=== PATIENT | female | born 1940 | race Caucasian/White ===

== ENCOUNTER → 2018-08-03 13:00 | Outpatient (CLI) | payer MEDICARE, SELFPAY ==
--- NOTE | 2018-08-03 | DI.CT.S_ITS ---
PROCEDURE: CT CHEST WO CON INDICATIONS: RECHECK LUNG NODULE TECHNIQUE: Noncontrast 2.0-2.5 mm thick sections acquired from the pulmonary apices to the posterior costophrenic angles. 7 mm thick coronal and sagittal MIP reformats were then acquired. A low radiation dose technique was utilized. COMPARISON: [facility], CT, THORAX WITHOUT CONTRAST, 01/29/2018, 11:12. [facility], CT, THORAX WITHOUT CONTRAST, 02/03/2017, 12:34. FINDINGS: Image quality: Diagnostic, given the low radiation dose technique. Lungs and pleura: Redemonstration of multiple 6 mm or last right-sided pulmonary nodules are grossly unchanged since 02/03/17. No acute consolidation pleural effusion or pneumothorax. There is bibasilar subsegmental scarring atelectasis as well as central bronchial wall thickening. Mediastinum: Heart size is normal. No pericardial effusion. No mediastinal adenopathy by size criteria. Thoracic aorta and central pulmonary arteries are normal in size. Esophagus is normal in caliber. No hiatal hernia. Bones and chest wall: No suspicious bony lesions. No vertebral body compression fractures. No axillary or supraclavicular adenopathy by size criteria. Thyroid gland contains nonspecific calcification in the left lobe which is unchanged. Abdomen: Visualized upper abdomen solid organs and bowel loops appear normal in the absence of contrast. IMPRESSION: Grossly unchanged appearance of multiple subcentimeter pulmonary nodules as detailed above as 02/03/17. A final followup CT is recommended for the right sided pulmonary nodules measuring up to 6 mm, in January 2019 for definitive 24 month surveillance as below. Fleischner Society criteria for SOLID lung nodule followup. Nodule size (mm)Low-risk patientHigh-risk patient<6 (single or multiple)No routine followup.Optional CT at 12 months. 6-8 (single or multiple)CT at 6-12 months, then optional CT at 18-24 mo.CT at 6-12 months, then CT at 18-24 months. >8 (single)CT at 3 months, PET-CT, or biopsy. Same as for low-risk pts. >8 (multiple)CT at 3-6 months, then optional CT at 18-24 mo.CT at 3-6 months, then CT at 18-24 months. Fleischner Society criteria for SUB-SOLID lung nodule followup. Solitary pure ground-glass nodules<6 mm (ground glass or part solid)No followup needed. 6 mm or larger (ground glass)CT at 6-12 months to confirm persistence, then CT every 2 years until 5 years.6 mm or larger (part solid)CT at 3-6 months to confirm persistence, then annual CT until 5 years if unchanged and solid component remains <6 mm. Multiple sub-solid nodules<6 mmCT at 3-6 months, then CT consider at 2 & 4 years for high risk patients. [address] at 3-6 months. Subsequent management based on most suspicious lesions. Recommendations do not apply to lung cancer screening, patients with immunosuppression, or patients with known primary cancer. Dictated by: Paresh Bronson M.D. on 08/03/2018 at 13:44 Approved by: Paresh Bronson M.D. on 08/03/2018 at 13:51
== END ==
PROVIDERS: Family Provider Family Medicine; PCP Family Medicine; Visit Provider Family Medicine
DX: R91.8 Other nonspecific abnormal finding of lung field (principal)
CPT/HCPCS: 71250

== ENCOUNTER → 2019-01-16 12:28 | Outpatient (CLI) | payer MEDICARE, SELFPAY ==
--- NOTE | 2019-01-16 12:33 | DI.RAD.S_ITS ---
PROCEDURE: XR SHOULDER RT MIN 2V INDICATIONS: BILATERAL SHOULDNER PAIN TECHNIQUE: 3 views of the shoulder were acquired. COMPARISON: None. FINDINGS: Bones: Moderate to severe right glenohumeral joint osteoarthritis and moderate acromioclavicular joint osteoarthritis is seen. No fractures or dislocations. No suspicious bony lesions. Visualized ribs appear intact. Soft tissues: No suspicious soft tissue calcifications. IMPRESSION: Moderate to severe right glenohumeral joint arthritis and moderate right acromioclavicular joint osteoarthritis. Dictated by: Hugo Veras M.D. on 01/16/2019 at 13:23 Approved by: Hugo Veras M.D. on 01/16/2019 at 13:23
--- NOTE | 2019-01-16 12:33 | DI.RAD.S_ITS ---
PROCEDURE: XR SHOULDER LT MIN 2V INDICATIONS: BILATERAL SHOULDNER PAIN TECHNIQUE: 3 views of the shoulder were acquired. COMPARISON: None. FINDINGS: Bones: No fractures or dislocations. Moderate to severe glenohumeral joint osteoarthritis and mild acromioclavicular joint osteoarthritis is seen. No suspicious bony lesions. Visualized ribs appear intact. Soft tissues: No suspicious soft tissue calcifications. IMPRESSION: Moderate to severe left glenohumeral joint osteoarthritis and mild left acromioclavicular joint osteoarthritis. Dictated by: Hugo Veras M.D. on 01/16/2019 at 13:22 Approved by: Hugo Veras M.D. on 01/16/2019 at 13:23
== END ==
PROVIDERS: Family Provider Family Medicine; PCP Family Medicine; Visit Provider Family Medicine
DX: M25.511 Pain in right shoulder (principal); M19.012 Primary osteoarthritis, left shoulder; M19.011 Primary osteoarthritis, right shoulder
CPT/HCPCS: 73030

== ENCOUNTER → 2019-02-07 13:03 | Outpatient (CLI) | payer MEDICARE, SELFPAY ==
--- NOTE | 2019-02-07 13:57 | DI.CT.S_ITS ---
PROCEDURE: CT CHEST WO CON INDICATIONS: LUNG NODULE TECHNIQUE: Noncontrast 2.0-2.5 mm thick sections acquired from the pulmonary apices to the posterior costophrenic angles. 7 mm thick coronal and sagittal MIP reformats were then acquired. A low radiation dose technique was utilized. COMPARISON: [facility], CT, CT CHEST WO CON, 08/03/2018, 12:57. FINDINGS: Image quality: Diagnostic, given the low radiation dose technique. Lungs and pleura: The 6 mm or less right sided pulmonary nodules originally identified in January of 2017 have not changed over time, and no new nodule has developed. These likely are postinflammatory in origin. No mediastinal or hilar adenopathy is found. No acute bone or soft tissue lesions seen. These have been stable over 2 years. Mediastinum: Heart size is normal. No pericardial effusion. No mediastinal adenopathy by size criteria. Thoracic aorta and central pulmonary arteries are normal in size. Esophagus is normal in caliber. No hiatal hernia. Bones and chest wall: No suspicious bony lesions. No vertebral body compression fractures. No axillary or supraclavicular adenopathy by size criteria. Thyroid gland is not well-visualized by this noncontrast technique. Abdomen: Visualized upper abdomen solid organs and bowel loops appear normal in the absence of contrast. IMPRESSION: Benign nodules are again seen at the right lung requiring no additional followup. Presumed old inflammatory events are the cause of that appearance. Dictated by: Mahendra Queen M.D. on 02/07/2019 at 18:17 Approved by: Mahendra Queen M.D. on 02/07/2019 at 18:21
== END ==
PROVIDERS: Family Provider Family Medicine; PCP Family Medicine; Visit Provider Family Medicine
DX: R91.8 Other nonspecific abnormal finding of lung field (principal)
CPT/HCPCS: 71250

== ENCOUNTER → 2019-03-01 13:06 | Outpatient (CLI) | payer MEDICARE, SELFPAY ==
--- NOTE | 2019-03-01 | DI.MG.S_ITS ---
BILATERAL DIGITAL SCREENING MAMMOGRAM 3D/2D WITH CAD: 03/01/2019 CLINICAL: Routine screening. Comparison is made to exams dated: 02/17/2015 mammogram, 10/25/2012 mammogram, and 07/25/2011 mammogram - [facility]. The tissue of both breasts is predominantly fatty. Current study was also evaluated with a Computer Aided Detection (CAD) system. There are a grouped calcifications in the left breast at 12 o'clock middle depth. No other significant masses, calcifications, or other findings are seen in either breast. IMPRESSION: INCOMPLETE: NEEDS ADDITIONAL IMAGING EVALUATION The grouped calcifications in the left breast are indeterminate. Spot magnification views as well as a diagnostic mammogram are recommended. This exam was interpreted at Station ID: [id number]. NOTE: For mammograms, a report in lay terms will be sent to the patient. Approximately 15% of breast malignancies will not be visualized mammographically. In the management of a palpable breast mass, a negative mammogram must not discourage biopsy of a clinically suspicious lesion. Electronically Signed By: Judie selby/mark:03/01/2019 13:38:05 letter sent: Additional Imaging Needed ACR BI-RADS Category 0: Incomplete 3340F
== END ==
PROVIDERS: PCP Family Medicine; Visit Provider Family Medicine
DX: Z12.31 Encounter for screening mammogram for malignant neoplasm of breast (principal)
CPT/HCPCS: 77063; 77067

== ENCOUNTER → 2019-03-19 14:08 | Outpatient (CLI) | payer MEDICARE, SELFPAY ==
--- NOTE | 2019-03-19 | DI.MG.S_ITS ---
UNILATERAL LEFT DIGITAL DIAGNOSTIC MAMMOGRAM 3D/2D WITH ADDITIONAL VIEWS: 03/19/2019 CLINICAL: Additional evaluation requested from prior study. Comparison is made to exams dated: 03/01/2019 mammogram, 02/17/2015 mammogram, and 10/25/2012 mammogram - [facility]. The tissue of left breast is predominantly fatty. There are new grouped fine pleomorphic punctate calcifications in the left breast central to the nipple middle depth. No other significant masses or calcifications are seen in the breast. IMPRESSION: SUSPICIOUS OF MALIGNANCY The new grouped fine pleomorphic punctate calcifications in the left breast are at an intermediate suspicion for malignancy. A stereotactic biopsy is recommended. The findings were discussed with the patient at the conclusion of the study by Dr. Le. This exam was interpreted at Station ID: [id number]. NOTE: For mammograms, a report in lay terms will be sent to the patient. Approximately 15% of breast malignancies will not be visualized mammographically. In the management of a palpable breast mass, a negative mammogram must not discourage biopsy of a clinically suspicious lesion. Electronically Signed By: Nakul blackwell/:03/19/2019 14:52:15 letter sent: Biopsy Required ACR BI-RADS Category 4b: Suspicious abnormality - intermediate suspicion of malignancy 3344F
== END ==
PROVIDERS: PCP Family Medicine; Visit Provider Internal Medicine
DX: R92.8 Other abnormal and inconclusive findings on diagnostic imaging of breast (principal); R92.1 Mammographic calcification found on diagnostic imaging of breast
CPT/HCPCS: 77065; G0279

== ENCOUNTER → 2019-04-25 10:11 | Outpatient (CLI) | payer MEDICARE, SELFPAY ==
--- NOTE | 2019-04-25 10:21 | DI.CT.S_ITS ---
PROCEDURE: CT UE LT WO CON INDICATIONS: Primary osteoarthritis, left shoulder TECHNIQUE: Noncontrast 1-1.5 mm thick sections acquired from the acromioclavicular joint to the inferior scapula, with coronal and sagittal reformatting. COMPARISON: [facility], CR, XR SHOULDER LT MIN 2V, 01/16/2019, 12:33. FINDINGS: Image quality: Excellent. Bones: No fracture or dislocation. There are severe osteoarthritic changes in left shoulder with severe joint space narrowing, periarticular osteophytes and subchondral sclerosis and cyst formation. Superior migration of humeral head suggests chronic rotator cuff tear. There is mild acromioclavicular joint degeneration. Soft tissues: No soft tissue mass or large joint effusion. IMPRESSION: 1. Severe osteoarthritis of the left glenohumeral joint. 2. Mild osteoarthritis of acromioclavicular joint. 3. Suspect chronic rotator cuff tear. Dictated by: Real Rao M.D. on 04/25/2019 at 15:51 Approved by: Real Rao M.D. on 04/26/2019 at 7:24
== END ==
PROVIDERS: PCP Family Medicine; Visit Provider Orthopaedic Surgery
DX: M19.012 Primary osteoarthritis, left shoulder (principal)
CPT/HCPCS: 73700

== ENCOUNTER → 2019-05-22 16:33 | Outpatient (CLI) | payer MEDICARE, SELFPAY ==
[2019-05-22 17:58] LABS: Add Manual Diff / Slide Review NO; Basophils Absolute Auto 100 /uL (0-100); Basophils Percent Auto 0.8 % (0-2); Eosinophils Absolute Auto 300 /uL (0-450); Eosinophils Percent Auto 3.6 % (2-4); Lymphocytes Absolute Auto 2800 /uL (1100-4500); Lymphocytes Percent Auto 32.1 % (25-40); Mean Corpuscular HGB Conc 33.3 % (30-36); Mean Corpuscular Hemoglobin 32.5 PG (26-34); Mean Corpuscular Volume 97.6 fL (80-100); Monocytes Absolute Auto 700 /uL (0-900); Monocytes Percent Auto 8.1 % (3-14); Neutrophils Absolute Auto 4900 /uL (1500-7000); Neutrophils Percent Auto 55.4 % (50-75); Platelet Count 249 X10^3/uL (150-400); Red Blood Cell Count 3.99 X10^6/uL (4.0-5.2); Red Cell Distribution Width 13.4 % (11.6-14.8); White Blood Cell Count 8.8 X10^3/uL (4.5-11.0)
[2019-05-22 18:21] LABS: Alanine Aminotransferase 42 IU/L (9-52); Albumin 4.3 g/dL (3.5-5.0); Albumin Globulin Ratio 1.7 (1.0-2.8); Alkaline Phosphatase 57 U/L (38-126); Aspartate Aminotransferase 40 IU/L (14-36); BUN Creatinine Ratio 32.5 (6-22); Bilirubin Total 0.3 mg/dL (0.2-1.3); Blood Urea Nitrogen 26 mg/dL (7-17); Carbon Dioxide 28 mmol/L (22-32); Chloride 103 mmol/L (98-107); Estimated Glomerular Filt Rate > 60.0 mL/min (>60); Globulin 2.5 g/dL (1.7-4.1); Glucose 95 mg/dL (80-110); HEMOLYSIS < 15 (0-50); Potassium 4.4 mmol/L (3.4-5.1); Sodium 140 mmol/L (137-145); Total Protein 6.8 g/dL (6.3-8.2)
[2019-05-22 18:52] LABS: Thyroid Stimulating Hormone 0.32 uIU/mL (0.47-4.68)
== END ==
PROVIDERS: PCP Family Medicine; Visit Provider Family Medicine
DX: I10 Essential (primary) hypertension (principal); I49.1 Atrial premature depolarization; R42 Dizziness and giddiness
CPT/HCPCS: 36415; 80053; 84443; 85025

== ENCOUNTER → 2019-07-10 10:51 | Outpatient (ROUT) | payer MEDICARE, SELFPAY ==
[2019-07-10 11:45] LABS: INR 1.1 (0.9-1.3); Prothrombin Time 12.3 SECONDS (10.1-12.7)
== END ==
PROVIDERS: PCP Family Medicine; Visit Provider Family Medicine
DX: I48.91 Unspecified atrial fibrillation (principal)
CPT/HCPCS: 85610

== ENCOUNTER → 2019-07-22 06:43 | Outpatient (CLI) | payer MEDICARE, SELFPAY ==
--- NOTE | 2019-07-22 | DI.NM.S_ITS ---
PROCEDURE: NM HOMERO PERF SPECT REST & STR Rest and exercise myocardial perfusion SPECT with gated imaging and ejection fraction RADIOPHARMACEUTICAL: 25.1 mCi Tc-99m sestamibi IV at rest and 19.1 mCi Tc-99m sestamibi IV at peak exercise. A two day-protocol was performed. INDICATIONS: Persistent atrial fibrillation TECHNIQUE: Radiopharmaceutical was injected at peak stress test, and also at rest. SPECT images were obtained. SPECT myocardial perfusion images were displayed in short axis, horizontal long axis, and vertical long axis views. Gated images were reviewed using [employer] software. COMPARISON: CARDIAC STRESS: A standard Wallace treadmill exercise tolerance test was performed by the patient under the supervision of an attending staff. The patient exercised for 5 minutes and 11 seconds; functional aerobic impairment (CODY) is -10%. Hemodynamic data: There is normal blood pressure and heart rate response to exercise stress. Patient achieved 94% of maximum predicted heart rate at peak exercise. Symptoms: Patient denied chest pain during exercise. EKG: No diagnostic EKG changes of ischemia; occasional PACs noted. FINDINGS: Raw data: There is good myocardial labeling by radiotracer. No significant motion artifacts. Jrrr-cj-gzgbe ratio is 0.38 (normal is less than 0.38 for sestamibi tracer, and less than 0.50 for thallium tracer). Left ventricle function: Gated images demonstrate normal left ventricle wall thickening. No segmental wall motion abnormality. No transient ischemic dilation; TID is 0.94 (normal less than 1.3). The left ventricle resting end-diastolic volume is 74 mL. Left ventricle stress ejection fraction is 84%; normal values are above 45%. Myocardial perfusion: There is normal distribution of activity in the left and right ventricular myocardium. No fixed or reversible perfusion defects. IMPRESSION: Low risk, normal treadmill nuclear stress test. 1) No perfusion evidence of ischemia or infarction. 2) Normal left ventricular size, wall motion, and systolic function (EF post stress 84%). 3) No ECG evidence of ischemia. Occasional PACs with exercise. 4) No angina during the study. 5) Above average exercise tolerance (7.0 METs, CODY -10%). Target heart rate achieved. Appropriate BP response to exercise. 6) No prior nuclear stress test available for comparison. Dictated by: Martita Cornejo MD on 07/25/2019 at 13:39 Approved by: Martita Cornejo MD on 07/25/2019 at 13:43
== END ==
PROVIDERS: PCP Family Medicine; Visit Provider Internal Medicine Cardiovascular Disease
DX: I48.1 Persistent atrial fibrillation (principal); I34.0 Nonrheumatic mitral (valve) insufficiency
CPT/HCPCS: 78452; 93016; 93017; 93018; A9502; J2785

== ENCOUNTER → 2019-07-25 06:54 | Outpatient (CLI) | payer MEDICARE, SELFPAY ==
--- NOTE | 2019-07-25 | DI.ECHO.S_ITS ---
[place] [facility]---------+ [facility] +---------+ : : [address] : : : : [id number] : : : : Phone: [phone]+ Echocardiogram Report + + :Name: AP ZAVALA Study Date: 07/25/2019 Height: 64 in : :[facility] Location: IS Weight: 177 lb : : Gender: Female BSA: 1.9 m2 : :: 1940 Age: 79 yrs BP: 123/79 mmHg: :Reason For Study: Mitral Valve- Regurgitation : :Ordering Physician: : :Danelle Gonzalez Performed By: Melanie Page : + + Interpretation Summary 1) Normal left ventricular thickness, size, wall motion, and systolic function (EF 60-65%). 2) Normal right ventricular size and function. 3) Severely enlarged left atrium. 4) There is mild mitral regurgitation. 5) Compared to the Echo done 10/01/2015, mitral regurgitation has increased from trace to mild on this study. Procedure: A two-dimensional transthoracic echocardiogram with color flow and Doppler was performed. The study quality was technically adequate. Comparison is made with the echocardiogram of 10/01/2015. The heart rate ranged between 49-64 bpm during the study. The patient was in normal sinus rhythm during the exam. Left Ventricle: The left ventricle is normal in size, wall thickness, and systolic function without any focal wall motion abnormalities. The ejection fraction is estimated to be 60-65%. Diastolic parameters suggest a relaxation abnormality of the left ventricle, consistent with probable normal filling pressures. Right Ventricle: The right ventricle is normal in size and function. Atria: The left atrium is severely dilated. Right atrial size is normal. There is no Doppler evidence for an interatrial shunt. Mitral Valve: The mitral valve leaflets appear mildly thickened, but open well. There is mild mitral annular calcification. There is mild mitral regurgitation. Aortic Valve: The aortic valve is trileaflet. The aortic valve is slightly calcified. There is no aortic valve stenosis. No aortic regurgitation is present. Tricuspid Valve: The tricuspid valve is normal in structure and function. There is trace tricuspid regurgitation. The right ventricular systolic pressure is estimated to be at least 34 mmHg based on an estimated right atrial pressure of 15 mm Hg. Pulmonic Valve: The pulmonic valve is not well seen, but is grossly normal. There is trace pulmonic regurgitation. Great Vessels: The aortic root is normal size. The ascending aorta is normal in size. The pulmonary artery is not well visualized, but is probably normal size. The IVC is dilated (diameter is greater than 2.1 cm) and it collapses less than 50% with a sniff. This suggests a high right atrial pressure of 15 mm Hg. Pericardium/ Pleura There is no pericardial effusion. There is no pleural effusion. MMode/2D Measurements & Calculations LVIDd: 5.0 cm LVOT diam: 2.0 cm LVIDs: 2.9 cm Ao root diam: 2.7 cm FS: 41.4 % asc Aorta Diam: 3.2 cm EPSS: 0.30 cm IVSd: 0.64 cm LVPWd: 0.62 cm LV spencer. diameter/BSA (cm/m^2): 2.7 LV sys. diameter/BSA (cm/m^2): 1.6 LA A2 area: 30.1 cm2 RA long axis: 5.1 cm LA A4 area: 23.7 cm2 RA area: 15.6 cm2 LA length (vol): 5.9 cm RA vol: 40.5 ml LA vol: 102.6 ml RA : 21.8 ml/m2 LA vol index: 55.3 ml/m2 IVC diam: 2.2 cm RVD1 (basal): 3.4 cm RVD2 (mid): 3.1 cm TAPSE: 2.2 cm Doppler Measurements & Calculations Ao V2 max: 138.8 cm/sec LVOT Max Kapil: 101.7 cm/sec Ao V2 mean: 94.3 cm/sec LV V1 max P.1 mmHg Ao max P.7 mmHg LV V1 VTI: 25.5 cm Ao mean P.9 mmHg SARIAK(I,D): 2.5 cm2 Ao V2 VTI: 31.4 cm SARIKA(V,D): 2.3 cm2 sev ratio: 0.81 SARIKA indexed to BSA (cm^2/m^2): 1.4 MV E max kapil: 108.3 cm/sec TR max kapil: 220.1 cm/sec MV A max kapil: 119.6 cm/sec TR max P.4 mmHg MV E/A: 0.91 PA V2 max: 80.4 cm/sec Med Peak E' Kapil: 6.1 cm/sec PA V2 mean: 59.7 cm/sec E/E' med: 17.8 PA mean P.5 mmHg Lat Peak E' Kapil: 8.2 cm/sec PA Accel Time: 0.12 sec E/E' lat: 13.3 E/e' average: 15.5 MV dec time: 0.22 sec MV P1/2t: 65.3 msec MV P1/2t max kapil: 108.7 cm/sec SV(LVOT): 78.8 ml MVA(P1/2t): 3.4 cm2 Reading Physician:12:21 PM
--- NOTE | 2019-07-25 12:17 | PM.TREADMILL ---
Cardiac Stress Test Report Referral & Results Date Patient Seen: 07/25/19 Requesting provider: Martita Cornejo Indication: Atrial fibrillation Rest ECG: Unremarkable, sinus rhythm Procedure Note: Today following both written and verbal informed consent the patient was exercised according to a standard Wallace protocol patient went for a total of 5 minutes 11 seconds achieving a maximum heart rate of 130 for maximum systolic blood pressure of 190. This is approximately 7.0 METS. Exercise was terminated at this point because of targets were met and 3+ dyspnea. Patient was also given Cardiolite through a previously started Hep-Lock IV by the diagnostic imaging staff approximately 1 minute prior to the cessation of exercise. There are no ST-T segment changes identified Normal heart rate and blood pressure response to exercise Functional aerobic impairment rated-10% on the active scale Rare PAC and PVC both identified Impression: No ECG evidence of ischemia Better than average exercise capacity Please see perfusion imaging report as well regarding possible ischemia Please note: Actual ECG tracings can be found in the PACS system.
== END ==
PROVIDERS: PCP Family Medicine; Referring Provider Internal Medicine Cardiovascular Disease; Visit Provider Family Medicine
DX: I34.0 Nonrheumatic mitral (valve) insufficiency (principal); I48.91 Unspecified atrial fibrillation
CPT/HCPCS: 93306

== ENCOUNTER 2019-08-06 06:17 | Inpatient (IN) | payer MEDICARE, SELFPAY ==
[2019-07-18 13:49] VITALS: BMI 30.3
[2019-08-06] VITALS (18 sets, daily range): BP systolic 107–143; BP diastolic 40–80; PULSE 50–65; RESP 12–18; TEMP 35.7–36.6; O2SAT 91–95
--- NOTE | 2019-08-06 06:00 | DI.RAD.S_ITS ---
PROCEDURE: XR SHOULDER LT 1V INDICATIONS: status post total shoulder TECHNIQUE: 1 views of the shoulder were acquired. COMPARISON: [facility], CR, XR SHOULDER RT MIN 2V, 01/16/2019, 12:33. FINDINGS: Bones: Left shoulder arthroplasty has been performed. Alignment is anatomic. No fractures or dislocations. No suspicious bony lesions. Visualized ribs appear intact. Soft tissues: No suspicious soft tissue calcifications. IMPRESSION: Expected appearance of left shoulder arthroplasty. Dictated by: Gera Snyder M.D. on 08/06/2019 at 10:45 Approved by: Gera Snyder M.D. on 08/06/2019 at 10:46
[2019-08-06] MEDS: ACETAMINOPHEN 325 MG TABLET 975 MG PO ×3 (07:10→20:42)
[2019-08-06] MEDS: PREGABALIN 75 MG CAPSULE PO (07:10)
[2019-08-06] MEDS: CELECOXIB 200 MG CAPSULE PO (07:10)
--- NOTE | 2019-08-06 07:59 | PM.PREOP ---
Pre-operative Note Interval Note History & Physical reviewed/Exam performed by Physician: Yes Changes to H&P: Yes H&P completed within 30 days and has changed as indicated here:: Evaluated by cardiology for afib. Cleared for surgery.
[2019-08-06] MEDS: CEFAZOLIN 2 GM/100 ML FROZ.PIGGY IV (08:05)
--- NOTE | 2019-08-06 08:07 | SUR.PREOP ---
Block start time [0750] . Monitoring initiated and maintained throughout procedure. Oxygen and medications given per anesthesiologist instructions. Patient remained stable throughout procedure, no adverse reactions noted. Block end time [0803. Pt remained stable throughout procedure. pt at bedside. pt brought directly in the operating room after the completion of the block. ].
[2019-08-06] MEDS: TRANEXAMIC ACID 1,000 MG VIAL 1000 MG IV ×2 (08:25→09:55)
--- NOTE | 2019-08-06 08:41 | SUR.OPER ---
Beach chair with Lincoln/Tucker shoulder positioner. Lower body on padded OR bed. Head in foam padded head cradle, secured with straps. Non-operative arm secured <90 degrees abduction. Pillow under knees. Safety belt at thigh. Cloth tape over blanket over lower legs.
[2019-08-06] MEDS: BUPIVACAINE 0.5% W/ EPI (PF) VIAL 30 ML INJ (08:50)
[2019-08-06] MEDS: THROMBIN (RECOMBINANT) 5,000 UNIT VIAL 5000 UNIT TOP (08:50)
--- NOTE | 2019-08-06 09:59 | PM.PROC.1 ---
Procedures Date/Time Date of procedure: 08/06/19 Time of procedure: 07:50 General Procedure description: Ultrasound guided interscalene brachial plexus nerve block for post op pain control after left total shoulder arthroplasty by Dr. Tyson. Risk and benefits of procedure discussed with patient. ASA monitoring applied to patient. O2 given via nasal cannula. 1 mg Versed and 50 mcg fentanyl given for procedural sedation. Skin site was prepped with chlorhexidine and allowed to fully dry. Sterile gloves, mask, hat and probe cover were used to maintain sterility. 2% lidocaine and 30ga needle was used to make a small skin wheal at needle insertion site. Under ultrasound guidance, a 21ga 50mm Pajunk needle was directed into the interscalene groove (middle/anterior scalenes) near the brachial plexus. Patient reported no parasthesias. After negative aspiration, 20 mL 0.5% ropivicaine and 10mg dexamethasone were injected around brachial plexus. Patient tolerated procedure well.
--- NOTE | 2019-08-06 10:17 | P.OP_ITS ---
Operative Date/Time/Diagnoses Date of procedure: 08/06/19 Time of procedure: 10:00 Pre-op diagnosis: Left shoulder osteoarthritis Post-op diagnosis: same Procedure & Clinicians Procedure: Left total shoulder replacement Same procedure as scheduled: Yes Indications: The patient has had progressively worsening left shoulder pain with radiographic changes consistent with arthritis. Non-operative management has failed and the patient has requested total shoulder replacement. The risks, benefits and alternatives to surgery were discussed with the patient prior to proceeding. Risks discussed included, but were not limited to, failure to relieve pain, stiffness, infection, nerve damage, deep venous thrombosis, pulmonary embolism, stroke, coma, heart attack, permanent paralysis and , as well as the potential need for eventual revision of the prosthetic. Surgeon: Kelechi Tyson Martial Arts Instructor: Lindsay Sanford Click Yes if Unassisted: No Anesthesia Type: General, Peripheral nerve block and Local Operative Notes Findings: Severe osteoarthritis of the left shoulder with concentric glenoid wear and several subchondral cysts in the glenoid. Closure Type: primary Specimen(s): none sent Prosthetic devices, grafts, tissues, transplants, or devices: Prosthetics used in this procedure were manufactured by the [employer] and included an Altivate short stem total shoulder system with a size 12 humeral stem with a neutral neck and a 46 x 18 mm neutral humeral head. There was also a 46 mm all polyethylene pegged E +glenoid. Applied: drain(s) and implant(s) Estimated Blood Loss (mL): 100 Blood products transfused: none Procedure in detail: The patient was seen in the pre-operative area, where the patient identified the left shoulder as the operative site and this was marked with my initials. The patient received pre-operative antibiotics, underwent an interscalene block, and was taken to the operating room and placed on the opera tive table in the supine position. After satisfactory anesthesia, a full ?time out? was performed. The patient was repositioned in the ?beach chair? position using a dedicated positioner. All pressure points were well padded, and the knees were slightly bent to prevent tension on the sciatic nerves. The left arm was prepared from the fingers to the base of the neck with ChloroPrep in the usual fashion and draped through sterile drapes. An approximately 10 cm incision was created, starting at the clavicle above the coracoid process and extended towards the deltoid insertion. The deltopectoral interval was used to access the shoulder. The cephalic vein was taken medially. A self retaining retractor was placed. The upper centimeter of the pectoralis major tendon was released. The ?three sisters? were identified and cauterized. The axillary nerve was palpated and protected throughout the case. The biceps was released from its groove and tenodesed over the top of the pectoralis major tendon. The subscapularis was released from the lesser tuberosity with a subscapularis peel and tagged for later repair. The shoulder was dislocated and a cutting guide was used for the proximal humeral osteotomy in 30 degrees of retroversion. A starter Reamer was used followed by the cylindrical reamers. This continued in larger sizes in till cortical bite was achieved. Sequential broaching was then performed until a line to line fit with the Reamer occurred. A proximal humeral protector was then placed. We then removed the self-retaining retractor and placed retractors to access the glenoid. The subscapularis was released with a ?360 degree release? with care being taken to protect the axillary nerve with the inferior portion of this procedure. The remnant of labrum and biceps stump were removed. The appropriate size reamer was chosen with the glenoid sizer, and the guide pin placed. The glenoid was appropriately reamed. The guide for the peripheral holes was used and the center hole enlarged. The trial glenoid was placed with good stability. We then cemented the final implant into place after irrigating the peg holes and drying them with thrombin-soaked Gelfoam. We returned our attention to the humerus, a trial humeral head was applied and a trial reduction performed. Stability was checked with 50% posterior translation with spontaneous reduction, 45? external rotation at the side with the subscapularis held in the repaired position and 70? of internal rotation in the ?scarecrow position?. This was felt to be satisfactory and the appropriate implants were opened. Five holes were drilled along the humeral osteotomy and #2 TiCron sutures placed for eventual subscapularis repair. The humeral prosthetic was impacted into the humerus. The humeral head was applied when the stem was still slightly proud and impacted to both seat the head and fully seat the stem. The joint was relocated one final time. The joint was irrigated and the subscapularis repaired to the previously placed sutures using Que-Asher sutures. The top of the subscapularis was closed to the leading edge of the supraspinatus with a figure of 8 #2 TiCron to close the rotator interval. A deep drain was placed and brought out supero-laterally. The deltopectoral interval was closed with interrupted 0 Vicryl. The subcutaneous layer was closed with 3-0 Vicryl, and the skin with a running 3-0 V-Lock suture and SteriStrips. An Aquacel Ag dressing was applied, the patient?s arm was placed in a sling, and the patient was taken to recovery having tolerated the procedure well. Complications: none Post-operative Condition: stable Disposition: PACU Plan for aftercare: The patient will be maintained on a standard total shoulder replacement protocol with passive range of motion limited to 90 degrees forward flexion, 0 degrees external rotation at the side, 0 degrees abduction and internal rotation to the body. The patient will receive aspirin and sequential compression devices for DVT prophylaxis. The patient will be discharged home when safe for the home environment, likely tomorrow.
--- NOTE | 2019-08-06 10:47 | SUR.PHASEI ---
Patient opens eyes to voice. Denies pain/nausea. Drsg CDI. Hemovac with red drainage. Cap refill to left hand < 3 seconds
--- NOTE | 2019-08-06 11:13 | SUR.PHASEI ---
Transferred patient on 2L 02 via [place]. Patient tolerating ice chips. C/O numbness to left hand. Cap refill < 2 seconds.
--- NOTE | 2019-08-06 11:27 | PC.NURSE ---
Addendum entered by Mallika Medrano R.N. 08/06/19 14:56: Correction: patient to floor at 1110, not 1310 Original Note: Post-op: Arrived to room 203 at 1310. Drowsy but awakens easily to voice/touch. Dressing to L shoulder C/D/I, sling in place. LUE is numb, but she is able to wiggle fingers. BUE's are warm, pink, + radial pulses and cap refill <2 sec. Denies pain or discomfort. SpO2 on 2L 2-95%, cont pulse ox monitor left on for now. SCD's to BLE's. Denies N/V. IVF per orders, site in L hand WNL. Oriented to room and call light, encouraged to make needs known. Light in reach, bed alarm active.
[2019-08-06] MEDS: LACTATED RINGERS 1,000 ML 125 ML IV ×2 (11:42→19:39)
--- NOTE | 2019-08-06 13:15 | PT.IIE ---
Current Diagnoses Primary osteoarthritis, left shoulder (08/06/19) Surgery Performed Operation Date: 08/06/19 07:45 Actual Procedures p Total Shoulder Arthroplasty(Left) - Kelechi Tyson MD Surgical History (Last Updated 07/18/19 @ 14:28 by Deya Baltazar, RN) History of arthroplasty of left knee (Acute ~2017) History of arthroplasty of right knee (Acute) Hx of bilateral cataract extraction (Acute) Hx of dilation and curettage (Acute) Hx of left breast biopsy (Acute) Hx of repair of left rotator cuff (Acute ~2001) Hx of tonsillectomy (Acute) Hx of tubal ligation (Acute) Medical History (Last Updated 08/01/19 @ 12:51 by Deya Baltazar RN) Chronic neck and back pain (Acute) Depression (Acute) Easy bruisability (Acute) Former smoker (Acute) Hearing impairment (Acute) Heart murmur (Acute) HTN (hypertension) (Acute) Paroxysmal A-fib (Acute 07/09/19) Pneumonia (Acute) Skin cancer of face (Acute) Tingling (Acute) Wheezing (Acute) Physical Therapy Inpatient Evaluation/Re-Eval M1 PT/OT-IP Prior Functional Status Start: 08/06/19 13:59 Freq: NEEDED Status: Active Protocol: Document 08/06/19 13:15 AB (Rec: 08/06/19 14:26 AB [id number]) Medical Review Prior Functional Status Medical History Reviewed Yes Communication able to make needs known Mobility and Gait pt stated that she is modified independent with all mobilities and ambulation without AD but occasionally uses a SPC for long distance ambulation Social History Household Members spouse Living Arrangements House Number of Floors (Floors) Two Floors Number of Stairs To Enter/Railing? 2 steps to [place] with L rail ascending has 2 steps down to bedroom level with L rail descending Home Environment Standard Height Toilet,Walk in Shower Home Equipment Straight Cane,Shower Seat without Backrest,Hand Held Shower,Grab Bars Near Toilet, Grab Bars In Shower Additional Social History Comment pt's spouse will not be able to assist pt with mobility. pt 's daughter will be staying with pt until monday to assist her and afterwards, pt' s other daughter will be coming in to assist her. M2 PT-IP Current Condition Start: 08/06/19 13:59 Freq: NEEDED Status: Active Protocol: Document 08/06/19 13:15 AB (Rec: 08/06/19 14:26 AB [id number]) Physical Therapy Current Condition Current Condition Evaluation Date 08/06/19 Treatment Diagnosis s/p L TSR; difficulty in walking Onset Date 08/06/19 Precautions Shoulder Precautions Sling,PROM,Internal Rotation to Body,No External Rotation, No Abduction,Forward Flexion to 90 degrees,Pendulums Weight Bearing Status Weight Bearing Status Non-Weight Bearing Allowed Weight Bearing Amount (enter % NWB LUE or #) (%) M3 PT-IP Subjective Start: 08/06/19 13:59 Freq: NEEDED Status: Active Protocol: Document 08/06/19 13:15 AB (Rec: 08/06/19 14:26 AB [id number]) Subjective Physical Therapy Visit Type Type Initial Evaluation Visit Start Time 13:15 Visit Stop Time 13:55 Total Visit Minutes 40 Number of MARKETING OPERATIONS COORDINATOR Visits 0 Physical Therapy Visit Comments Patient Comments pt requesting to use the toilet Therapy Pain Assessment Pain Present Pain Present Denied Pain M4 PT-IP Mobility and Gait Start: 08/06/19 13:59 Freq: NEEDED Status: Active Protocol: Document 08/06/19 13:15 AB (Rec: 08/06/19 14:26 AB [id number]) PT-Bed Mobility Assessment Supine to Sit Supine to Sit Standby Assistance Sit to Supine Sit to Supine Standby Assistance Scooting Scooting to Edge of Bed Standby Assistance PT-Transfer Assessment Sit to and From Stand Sit to and from Stand Contact Guard Assistance Equipment Transfer Assistive Device Gait Belt Transfers Transfer Destination Toilet Transfer Technique pt ambulated without AD Transfer Ability Level of Assist Contact Guard Assistance,1 Person Assistance Comments Mobility Comments pt completed supine to sit SBA . pt was able to sit on EOB SBA. educated pt's daughter on how to don/doff sling. pt still does not have LUE motor control. PROM completed on elbow and hand to show pt and family of what exercises pt can do . opted not to do pendulum at this time due to decrease LUE motor control. pt completed sit to stand CGA and ambulated without AD to the toilet CGA. pt presents with unsteady waddling gait. pt was able to completed sit to stand from the toilet using grab bar CGA and ambulated towards the sink without AD CGA. pt was able to maintain standing CGA. pt ambulated more in room CGA. pt concerned about dressing and stated that she ordered a device with hooks to assist with dressing . informed pt and PT will ask the doctor for OT eval order to address dressign needs. Pt agreed. pt completed sit to supine SBA . positioned pt in bed. call light and table placed within reach. Gait Assessment Gait Gait Assistance Required: Contact Guard Assist Distance (Feet) 35 Able to Maintain Weight Bearing Status Yes During Gait Assistive Devices Assistive Device Gait Belt Orthotic/Prosthetic Devices or Brace: No Gait Deviations General Gait Pattern Antalgic,Wide Based Gait Factors Limiting Gait Function Factors Limiting Gait Function Decreased Activity Tolerance, Decreased Sensation,Decreased Strength,Limited Range of Motion,Poor Balance,Poor Safety Awareness,Respiratory Distress PT-Balance Assessment Sitting Balance and Reactions Static Sitting Balance Ability Good Dynamic Sitting Balance Ability Good Standing Balance and Reactions Static Standing Balance Ability Fair Dynamic Standing Balance Ability Fair Device Used without AD M5 PT-IP Objective Assessments Start: 08/06/19 13:59 Freq: NEEDED Status: Active Protocol: Document 08/06/19 13:15 AB (Rec: 08/06/19 14:26 AB [id number]) Orientation Orientation/Cognition Level of Alertness Alert Orientation Name,Age,Place,Situation Language Function Ability No Deficits Noted Safety Awareness Decreased Safety Awareness Memory Description Short Term Impaired Gross Range of Motion Lower Extremity ROM Assessment Within Functional Limits Strength Lower Extremity Strength Assessment Bilaterally Impaired Hip 4-/5 Knee 4-/5 Coordination Assessment Gross Coordination Gross Coordination WNL Sensation Assessment Sensation Gross Sensation Left UE Impaired Light Touch Impaired Proprioception (Position) Impaired Sensation Description Numbness M6 PT-IP Treatment Start: 08/06/19 13:59 Freq: NEEDED Status: Active Protocol: Document 08/06/19 13:15 AB (Rec: 08/06/19 14:26 AB [id number]) Physical Therapy Treatment Exercises Exercises Elbow Flexion/Extension,Wrist ROM,Hand ROM Education Education Provided Precautions,Weight Bearing Status,Post-Op Packet,Safety M7 PT-IP Assessment and Plan Start: 08/06/19 13:59 Freq: NEEDED Status: Active Protocol: Document 08/06/19 13:15 AB (Rec: 08/06/19 14:26 AB [id number]) PT Summary Assessment and Plan Potential Rehabilitation Potential Good Status of Condition at Evaluation Evolving Summary Impairments Pain,ROM,Strength,Balance, Coordination,Sensation,Tone, Cognition,Bed Mobility, Transfers,Gait,Activity Tolerance Assessment Summary pt requiring min A with mobility and presents with unsteady gait. will assess mobility and ambulation tomorrow and determine if pt will need SPC for ambulation for safety. will also conduct caregiver training for sling management and mobility assistance as well as stair climbing training. pt plans to go home and her daughter will assist her. Goals Bed Mobility Goal Independent Transfer Goal Independent,Cane Gait Goal Independent,Cane Gait Distance 250 Other Goals ambulation without AD 300 ft SBA up/down 2 steps L rail ascending SBA. up/down 2 steps R rail ascending SBA. Days to Meet Goals 3 Frequency of Treatment Frequency Of Treatment Twice a Day Treatment Plan Physical Therapy Treatment Plan Bed Mobility Training,Transfer Training,Gait Training, Therapeutic Exercise,Balance Retraining,Post Op Education, Discharge Planning,Hot or Cold Pack,Neuromuscular Re-ed, Coordination Retraining,Manual Therapy Other Recommendations and Next Treatment ambulation without AD/SPC Focus caregiver training Recommendations To Nursing Amount of Assist Needed 1 Person Assist Discharge Recommendations PT Discharge Recommendations Home with 05/06 Assist, Outpatient PT
[2019-08-06] MEDS: cloNIDine 0.1 MG TABLET 0.3 MG PO (20:43)
[2019-08-06] MEDS: CITALOPRAM 20 MG TABLET 30 MG PO (20:44)
[2019-08-06] MEDS: DOCUSATE 100 MG CAPSULE PO (20:44)
[2019-08-06] MEDS: METOPROLOL ER 25 MG TABLET PO (20:44)
[2019-08-06] MEDS: MELOXICAM 7.5 MG TABLET PO (20:44)
[2019-08-06] MEDS: OXYCODONE IR 5 MG TABLET PO (21:27)
--- NOTE | 2019-08-06 22:49 | PC.NURSE ---
Evening note: Monica Ox3, VS stable tonight. Conversive with staff, expressing needs. Rated pain 4/10 after dinnertime, refused any med other than scheduled tylenol. Left shoulder aquacel drsg remains CDI, hemovac patent with 80 ml sero-sang drainage output since 1500, disc compressed & drain active. Reports residual numbness to left shoulder and arm, states hand and fingers are awake. Wiggling fingers and moving hand, extremities are warm and radial pulse is strong. Sling in place. Patient ambulated hallways tonight, denies dizziness, gait stead with SBA. After walk reported increased pain to left shoulder/arm 6/10, medicated with 1 tab oxycodone & scheduled tylenol. Since then she has been observed dozing, fall precautions in place and bed alarm active for safety.
[2019-08-07 01:08] VITALS: BP 156/52; PULSE 55; RESP 18; TEMP 36.3; O2SAT 93
--- NOTE | 2019-08-07 01:15 | PC.NURSE ---
Addendum entered by Bree Phillips R.N. 08/07/19 05:42: Attempted to try without oxygen but when asleep dropped down to 86% so now back on oxygen at 1L/min. Addendum entered by Bree Phillips R.N. 08/07/19 05:16: Complains of 5/10 left UE pain; medicated with Oxycodone and ice pack applied after being up to bathroom. Original Note: Patient is alert and oriented. Breath sounds CTA with crackles in left LL; on oxygen at 1L/min with sat of 92% at rest. Reminded to CDB and use I.S. when awake. HRR but bradycardic at 55 bpm. Denies nausea. BT present and is passing flatus. Denies dysuria, frequency or urgency. Able to move self in bed and SBA when out of bed. Dressing to left shoulder is CDI. Earlier numbness in left UE is now resolved with good radial pulse. Has left UE in sling. States pain is only 2/10 and tolerable; ice applied to area. Hemovac is intact and compressed. Wearing bilateral SCD's. Fall risk score is moderate; bed alarm is activated.
[2019-08-07 04:57] VITALS: BP 111/49; PULSE 61; RESP 19; TEMP 36.2; O2SAT 95
[2019-08-07] MEDS: OXYCODONE IR 5 MG TABLET PO ×3 (05:02→12:38)
[2019-08-07 07:13] LABS: Hematocrit 31.5 % (36-46); Hemoglobin 10.6 g/dL (12.0-16.0); Mean Corpuscular HGB Conc 33.7 % (30-36); Mean Corpuscular Hemoglobin 32.9 PG (26-34); Mean Corpuscular Volume 97.8 fL (80-100); Platelet Count 173 X10^3/uL (150-400); Red Blood Cell Count 3.22 X10^6/uL (4.0-5.2); Red Cell Distribution Width 13.2 % (11.6-14.8); White Blood Cell Count 14.2 X10^3/uL (4.5-11.0)
[2019-08-07 07:25] VITALS: BP 112/49; PULSE 56; RESP 16; TEMP 36.8; O2SAT 94
--- NOTE | 2019-08-07 07:38 | PM.DS.1 ---
History of Present Illness History of Present Illness Date Patient Seen: 08/07/19 Time Patient Seen: 07:39 Chief complaint: [id number] Narrative: The patient has had progressively worsening left shoulder pain with radiographic changes consistent with arthritis. Non-operative management has failed and the patient has requested total shoulder replacement. The risks, benefits and alternatives to surgery were discussed with the patient prior to proceeding. Risks discussed included, but were not limited to, failure to relieve pain, stiffness, infection, nerve damage, deep venous thrombosis, pulmonary embolism, stroke, coma, heart attack, permanent paralysis and , as well as the potential need for eventual revision of the prosthetic. Discharge Providers Provider Date of admission: 08/06/19 06:17 Discharge Date: 08/07/19 Primary care physician: Danelle Gonzalez MD Consults: 08/06/19 11:25 Consult to Discharge Planning Routine Comment: Consult to Physical Therapy Evaluate & Treat Comment: Physician Instructions: Evaluate and Treat Discharge provider: Lindsay Sanford PA-C Summary Hospital Course Discharge Diagnosis: s/p left total shoulder arthroplasty Spinal stenosis Osteoarthritis Hypertension Migraines Depression History of alcoholism Hospital Course: Monica was admitted for a left total shoulder arthroplasty with Dr. Tyson. Hospital course was unremarkable. On postop day 1. Patient was ready to discharge home. She is eating and voiding without difficulty or assistance. She has using her sling. She worked with physical therapy throughout her stay. Drain was removed prior to discharge. ASA for DVT prophylaxis. Exam Vital Signs (past 8 hours): - 08/07/19 01:08 08/07/19 04:57 Temperature 97.3 F L 97.1 F L Pulse Rate 55 L 61 Respiratory Rate 18 19 Blood Pressure 156/52 H 111/49 L Pulse Oximetry 93 95 Oxygen Delivery Method Nasal Cannula Oxygen Flow Rate 0 Narrative Exam Narrative: Patient is sitting up in bed in no acute distress. She is alert orient x3. Dressing on left shoulders CDI. Organ Pipe Finisher strength is strong and equal. Radial pulses symmetrical. Wearing her sling. She has no complaints today. Her pain has been well controlled with oxycodone, and Tylenol. Objective Labs Result Diagrams: 08/07/19 06:45 Discharge Plan Discharge Plan Patient Disposition: Home Discharge Med Rec/Prescriptions Prescriptions: New docusate sodium [DOK] 100 mg Capsule 100 mg PO BID Qty: 60 RF: 0 oxycodone 5 mg Tablet 5 mg PO Q4-6H PRN (Reason: Pain, Moderate (4-6)) Qty: 40 RF: 0 Continued clonidine HCl [Catapres] 0.3 MG tablet 0.3 mg PO BEDTIME Qty: 0 RF: 0 Fluticasone Propionate (FLONASE) 2 spray Intranasal BEDTIME Qty: 0 RF: 0 citalopram [Celexa] 20 MG tablet 30 mg PO BEDTIME Qty: 0 RF: 0 multivitamin Capsule 1 cap PO DAILY Qty: 0 RF: 0 GLUCOSAMINE HCL/CHONDR HENYR A NA (Glucosamine-Chondroitin Caplet) 1 tab PO BID Qty: 0 RF: 0 cholecalciferol (vitamin D3) [Vitamin D3] 2,000 unit Capsule 5,000 unit PO DAILY Qty: 0 RF: 0 meloxicam [Mobic] 7.5 mg tablet 7.5 mg PO BID Qty: 0 RF: 0 estradiol 10 mcg insert, dose pack 10 mcg VAG 2XW RF: 0 cetirizine [Aller-Elsy] 10 mg Tablet 10 mg PO BID RF: 0 aspirin 325 mg Tablet 325 mg PO DAILY RF: 0 acetaminophen 500 mg Tablet 500 mg PO BID RF: 0 metoprolol succinate 25 mg Tablet Extended Release 24 Hr 25 mg PO BID RF: 0 nystatin-triamcinolone 100,000-0.1 unit/gram-% ointment 1 applictn TOPICAL BID PRN (Reason: vaginally) RF: 0 albuterol sulfate 90 mcg/actuation Hfa Aerosol Inhaler 2 puff INHALATION DAILY PRN (Reason: wheeze ) RF: 0 flecainide 50 mg tablet See Rx Instructions .ROUTE .COMPLEX RF: 0 Follow up/Referrals: Kelechi Tyson MD [Physician] - Danelle Gonzalez MD [Primary Care Provider] - Provider Discharge Instructions Diet: Diet as Tolerated Activity: The patient will be maintained on a standard total shoulder replacement protocol with passive range of motion limited to 90 degrees forward flexion, 0 degrees external rotation at the side, 0 degrees abduction and internal rotation to the body. Skin/Wound/Dressing Care Report to your healthcare provider any signs of infection, such as:: chills, fever and increased pain Dressing: leave in place until appointment Visit Report/Discharge Packet Instructions: DI for Shoulder Replacement Visit Report Forms: Stroke Signs & Symptoms Discharge Data Primary Care Provider: Danelle Gonzalez Discharges patient from system. Discharge Date/Time: 08/07/19 13:03 Quality VTE Deep Vein Thrombosis/Pulmonary Embolism Present on Admission: No
[2019-08-07 08:49] VITALS: PULSE 58; RESP 16; O2SAT 95
[2019-08-07] MEDS: LORATADINE 10 MG TABLET PO (08:52)
[2019-08-07] MEDS: ACETAMINOPHEN 325 MG TABLET 975 MG PO (08:52)
[2019-08-07] MEDS: MELOXICAM 7.5 MG TABLET PO (08:52)
[2019-08-07] MEDS: METOPROLOL ER 25 MG TABLET PO (08:52)
[2019-08-07] MEDS: DOCUSATE 100 MG CAPSULE PO (08:52)
[2019-08-07] MEDS: ASPIRIN 325 MG TABLET PO (08:52)
[2019-08-07] MEDS: POLYETHYLENE GLYCOL 3350 17 GM POWD.PACK PO (08:53)
[2019-08-07] MEDS: SODIUM CHLORIDE 0.9% FLUSH 10 ML IV (08:53)
--- NOTE | 2019-08-07 09:48 | PT.IPTN ---
Current Diagnoses Primary osteoarthritis, left shoulder (08/06/19) Surgery Performed Operation Date: 08/06/19 07:45 Actual Procedures p Total Shoulder Arthroplasty(Left) - Kelechi Tyson MD Physical Therapy Treatment Note M2 PT-IP Current Condition Start: 08/06/19 13:59 Freq: NEEDED Status: Active Protocol: Document 08/06/19 13:15 AB (Rec: 08/06/19 14:26 AB [id number]) Physical Therapy Current Condition Current Condition Evaluation Date 08/06/19 Treatment Diagnosis s/p L TSR; difficulty in walking Onset Date 08/06/19 Precautions Shoulder Precautions Sling,PROM,Internal Rotation to Body,No External Rotation, No Abduction,Forward Flexion to 90 degrees,Pendulums Weight Bearing Status Weight Bearing Status Non-Weight Bearing Allowed Weight Bearing Amount (enter % NWB LUE or #) (%) M3 PT-IP Subjective Start: 08/06/19 13:59 Freq: NEEDED Status: Active Protocol: Document 08/07/19 09:48 AB (Rec: 08/07/19 11:41 AB [id number]) Subjective Physical Therapy Visit Type Type Treatment Note Visit Start Time 09:48 Visit Stop Time 10:36 Total Visit Minutes 48 Number of RUBBER MOLD MAKER Visits 0 Physical Therapy Visit Comments Patient Comments pt agreeable to do PT. daughter present for caregiver training Patient Goals to go home Therapy Pain Assessment Pain When Pain Assessed At Rest Pain Present Pain Present Pain Reported Location left shoulder Intensity 3 Scale Used Numeric (1 - 10) Pain Management Techniques Re-positioning,Timing of Activity with Medications M4 PT-IP Mobility and Gait Start: 08/06/19 13:59 Freq: NEEDED Status: Active Protocol: Document 08/07/19 09:48 AB (Rec: 08/07/19 11:41 AB [id number]) PT-Bed Mobility Assessment Supine to Sit Supine to Sit Standby Assistance Sit to Supine Sit to Supine Standby Assistance Scooting Scooting to Edge of Bed Standby Assistance Scooting Up and Down in Bed Standby Assistance PT-Transfer Assessment Sit to and From Stand Sit to and from Stand Standby Assistance,Contact Guard Assistance Equipment Transfer Assistive Device Gait Belt Orthotic/Prosthetic Devices or Brace: Yes Transfers Transfer Destination Bed,Chair Transfer Technique Stand Step Pivot Transfer Ability Level of Assist Standby Assistance Comments Mobility Comments caregiver training conducted. daughter was able to don/doff sling. pt completed elbow/ hand AROM while off the sling. educated on pendulum and attempted but pt unable to relax L shoulder and unable to complete activity safely. advised pt and daughter to just dangle LUE to assist with hygiene care and dressing. pt and daughter understood and agreed. pt completed transfer chair<>bed SBA and completed bed mobility supine< >sit SBA. pt ambulated without AD towards the stairs initially with CGA and then with sBA. instructed daughter on how to assist pt and completed. pt completed up/down steps using one rail SBA to CGA and daughter was able to assist pt safely. pt can be impulsive and daughter was able to cue pt appropriately. O2 sat after stairs 86% and cued for deep breathing and O2 sat increased to 96%. educated pt on doing deep breathing in between activities and agreed. pt ambulated more in the hallway without AD SBA to occasionaly CGA ~ 250 ft. pt with unsteady gait but without LOB. recommended pt to use SPC for long distance outdoor mobility and agreed. Gait training conducted and pt initially required CGA to min A and cues for sequencing. pt able to ambulate with CGA using SPC towards end of training and completed ~ 30 ft . pt requested to use the toilet and ambulated without AD SBA. daughter assisted pt safely. Left pt with family in room. Gait Assessment Gait Gait Assistance Required: Standby Assistance,Contact Guard Assist,Minimum Assistance Distance (Feet) 250 Able to Maintain Weight Bearing Status Yes During Gait Assistive Devices Assistive Device None,Gait Belt,Straight Cane Orthotic/Prosthetic Devices or Brace: Yes Factors Limiting Gait Function Factors Limiting Gait Function Decreased Activity Tolerance, Decreased Strength,Limited Range of Motion,Pain,Poor Balance,Poor Safety Awareness Comments Gait Comments please refer to mobility section for details Stair Climbing Assessment Evaluation Level of Assist On Stairs Standby Assistance,Contact Guard Assistance Devices Stair Climbing Assistive Devices Left Railing,Right Railing Technique/Endurance Stair Climbing Direction Ascend and Descend Stair Climbing Technique Step Over Step Number of Steps Climbed 3 Stair Climbing Set # Repetitions (reps) 2 M5 PT-IP Objective Assessments Start: 08/06/19 13:59 Freq: NEEDED Status: Active Protocol: Document 08/06/19 13:15 AB (Rec: 08/06/19 14:26 AB [id number]) Orientation Orientation/Cognition Level of Alertness Alert Orientation Name,Age,Place,Situation Language Function Ability No Deficits Noted Safety Awareness Decreased Safety Awareness Memory Description Short Term Impaired Gross Range of Motion Lower Extremity ROM Assessment Within Functional Limits Strength Lower Extremity Strength Assessment Bilaterally Impaired Hip 4-/5 Knee 4-/5 Coordination Assessment Gross Coordination Gross Coordination WNL Sensation Assessment Sensation Gross Sensation Left UE Impaired Light Touch Impaired Proprioception (Position) Impaired Sensation Description Numbness M6 PT-IP Treatment Start: 08/06/19 13:59 Freq: NEEDED Status: Active Protocol: Document 08/07/19 09:48 AB (Rec: 08/07/19 11:41 AB [id number]) Physical Therapy Treatment Education Education Provided Precautions,Weight Bearing Status,Safety M7 PT-IP Assessment and Plan Start: 08/06/19 13:59 Freq: NEEDED Status: Active Protocol: Document 08/07/19 09:48 AB (Rec: 08/07/19 11:41 AB [id number]) PT Summary Assessment and Plan Potential Rehabilitation Potential Good Summary Impairments Pain,ROM,Strength,Balance, Coordination,Sensation,Tone, Cognition,Bed Mobility, Transfers,Gait,Activity Tolerance Progress Towards Goals Progressing Toward Goals Assessment Summary caregiver training conducted and daughter was able to assist pt safely. pt plans to go home today with family to assist her. Goals Bed Mobility Goal Independent Transfer Goal Independent,Cane Gait Goal Independent,Cane Gait Distance 250 Other Goals ambulation without AD 300 ft SBA up/down 2 steps L rail ascending SBA. up/down 2 steps R rail ascending SBA. Days to Meet Goals 3 Frequency of Treatment Frequency Of Treatment Twice a Day Treatment Plan Physical Therapy Treatment Plan Bed Mobility Training,Transfer Training,Gait Training, Therapeutic Exercise,Balance Retraining,Post Op Education, Discharge Planning,Hot or Cold Pack,Neuromuscular Re-ed, Coordination Retraining,Manual Therapy Other Recommendations and Next Treatment ambulation without AD/SPC Focus caregiver training Recommendations To Nursing Amount of Assist Needed 1 Person Assist Discharge Recommendations PT Discharge Recommendations Home with 05/06 Assist, Outpatient PT
[2019-08-07 11:00] VITALS: BP 122/50; PULSE 56; RESP 16; TEMP 36.6; O2SAT 97
--- NOTE | 2019-08-07 12:56 | PC.NURSE ---
Hemovac drain removed per orders, gauze with tegaderm dressing placed to site. Patient tolerated well. Discharge instructions reviewed with patient and her daughter. Patient states understanding and has no further questions or concerns at this time. Home health services arranged per social work. Patient escorted out via wheelchair by SENIOR NET APPLICATION DEVELOPER to be discharged to home with family. Patient states she has follow up scheduled already. Patient instructed to report questions or concerns to surgeon.
--- NOTE | 2019-08-07 13:17 | CM.DANOTE ---
Patient is a 79 year old female who was admitted on 08/06/19 for Left Total Shoulder. Pt has [facility] for insurance and her PCP is Dr. Gonzalez. EMR was reviewed. Per Danielito ALTAMIRANO, pt may be stable for d/c home later today pending further therapy. Per PT, recommending safe d/c home with spouse, who has dementia, and adult Dtr to stay to assist. SW met bedside with pt and explained role and pt confirmed that she lives at home in [place] with her , who has dementia and is not able to provide consistent assist, and pt is typically independent with ADL's at baseline. Pt states her DPOA is her and her Dtr who plans to stay with her for a couple days at d/c and pt has another local supportive Dtr who was planning to stay as well but got the flu. Pt denies any hx of HH or SNF but states that she feels HH needed at d/c prior to outpt PT. SW provided the HH Choice List and pt does not have a preference. Per Vendor Calendar, SW made referral to [facility] and they confirmed they can accept and likely start tomorrow. SW faxed [facility] orders, d/c summary, and initial clinicals to review. [facility] provided [facility] brochure to the pt prior to d/c from the hospital. Plan: Patient to d/c home via family POV this afternoon and [facility] to open pt to service. JOSEPH Christensen Discharge Planning/Care Management Advanced directive, confirm from FAMILY Start: 08/06/19 14:23 Freq: Q24H Status: Discharge Protocol: Document 08/06/19 14:23 [facility] (Rec: 08/06/19 14:24 [facility] [id number]) Advance Directive, confirm on record Time 14:24 Person contacted dtr Copy received No CM Discharge Assessment Start: 08/07/19 13:15 Freq: Status: Discharge Protocol: Document 08/07/19 13:15 BF (Rec: 08/07/19 13:16 BF [id number]) Discharge Planning Assessment Assigned It Sales Representative JOSEPH Archer DPOA/Assigned Designee Name Spouse and Dtr Contact Information [phone] Advance Directives? Yes Advance Directives on File Yes History Provided By Patient,Medical Record Has Patient been admitted in last 30 No days? Prior Living Arrangements House Household Members spouse Type of transporation used prior to Drives own vehicle admit Independent with ADL's Yes Is patient alert and oriented? Yes Needs Assistance With Home Chores / Shopping Caregiver for Another No Community Services used prior to Physical Therapy admission: Patient/Family Preference Home with Home Health Barriers to Discharge No Discharge Plan Home with Home Health Transportation Arrangement Spouse bedside and can provide transport Referrals Initiated Home Health Medicare Choice List Provided Yes SNF/HH Preference no preference, used Vendor Calendar Whiteboard Updated in Patient Room with Yes name and ext. # of It Sales Representative Review Status In Process Please Provide Date Initial DC 08/07/19 Assessment Was Performed Next Review Type Continued Stay Review Pre-Anesthesia Assessment Start: 07/18/19 13:49 Freq: Status: Complete Protocol: Document 07/18/19 13:49 CAB (Rec: 07/18/19 14:36 CAB [id number]) Pre-Anesthesia Assessment Patient Information Reviewed Via Phone Assessment Assessment Completed With Patient Primary Care Provider Danelle Gonzalez Seen Specialist in Last 12 Months Yes Specialist Seen Adult Specialist,Apparel Manager, Orthopedist Primary Language Dominican Silk Screen Frame Assembler Required No Height 161.29 cm Weight 78.925 kg Body Mass Index (BMI) 30.3 Hearing Ability Use of Hearing Aid Visual Assist None Dentition Type Teeth, Natural Present Barriers to Learning None Hx Anesthesia Reactions Yes: Took a long time to wake up with a surgery Hx Family Anesthesia Reaction No Hx Malignant Hyperthermia No Hx Blood Transfusions No Anesthesia Review Requested Yes: PAC Courtesy re: New onset paroxsymal Afib 07/09/19 alcohol intake former Alcohol Intake Frequency Other: Quit 1987 Smoking Status Former smoker how long ago did patient quit smoking Quit 1987 Substance Use Type does not use Pain Present Pain Reported Musculoskeletal Symptoms Back Pain,Joint Pain,Limited Range of Motion,Muscle Cramps, Neck Pain,Numbness,Tingling History of Falling (Recent or History of No ) Patient is completely paralyzed or No completely immobile Mental Status Oriented to own ability Is patient on oxygen? No Does patient have LAONSO/SOB No Hx Sleep Apnea No Currently Taking a Beta Anthony Yes Can You Climb a Flight of Stairs Without Yes SOB Hx Chest Pain No Hx SOB No Hx Syncope or Dizziness Yes: Postural dizziness Anti-Coagulant Therapy Yes: Aspirin 325mg daily for new onset afib Has a Adult Specialist Yes: Dr. Cornejo Cardiac Testing Yes: Echo 07/25/19 @ EF 60- 65% Hx Pacemaker/ICD No Pacemaker Rep Required? No Comment NM stress 07/22/19 @ -low risk study, no ischemia Diet Type At Home Low Carb dysphagia No Bladder Pattern Frequency,Urgency Urinary Catheter Present No Hx Urinary Self Catheterization No Diabetes No Patient No Lactating No Hx Drug Resistant Organism No Presence of External or Internal Medical Yes: Bilateral eye lens, Devices bilateral knee prosthesis, left breast chip/bx Have you traveled outside the [facility] in the last 30 days? Marital Status Lives With spouse Prior Living Arrangements House Number of Floors (Floors) One Floor Support System Child/Children Does the Patient Have Assistance After Yes: unable to care Surgery for pt r/t dementia Patient Discharge Plan Description Return Home Comment Pt advised overnight length of stay per surgeon's office Feels Safe in Current Environment Yes Been Physically Hurt or Threatened By a No Person in Current Environment Do you have thoughts of harming yourself None or others? Are you currently considering suicide? No Do you have a plan to hurt yourself or No Plan others? Do You Have Any Spiritual Beliefs That No May Affect Your HC Choices? Do You Have Any Cultural Practices That No May Affect Your HC Choices? Who Can We Speak to About Patient's Care Family, friends Identifying Code for Release of Patient Declines to issue Information Health Care Proxy/Next of Kin Jennifer Marcelo (daughters) Mendez (son) Health Care Proxy Phone Number [facility]: [phone] Jennifer: [phone], Mendez: [phone] Emergency Contact Name Jennifer Marcelo (daughters) Mendez (son) Emergency Contact Phone Number [facility]: [phone] Jennifer: [phone], Mendez: [phone] Comment Tiffany Mann- /[phone]-He has dementia Advance Directives? Yes Advance Directives on File Yes PAC Instructions Durable medical equipment, Medications to take/avoid, Nasal antibiotic,No ETOH/ petroleum product on skin DOS, NPO,Post-op transportation,Pre -surgical wash,Sturdy shoes/ comfortable clothes,Do not bring valuables and remove jewelry
== END 2019-08-07 13:03 | disposition home or self-care (01) | DRG 483 ==
PROVIDERS: Admitting Provider Orthopaedic Surgery; PCP Family Medicine; Visit Provider Orthopaedic Surgery
PROC: 0RRK0JZ Replacement of Left Shoulder Joint with Synthetic Substitute, Open Approach (ICD-10-PCS; CPT 23472; principal; 2019-08-06 07:45)
DX: M19.011 Primary osteoarthritis, right shoulder (principal); I48.0 Paroxysmal atrial fibrillation; I10 Essential (primary) hypertension; F32.9 Major depressive disorder, single episode, unspecified; R01.1 Cardiac murmur, unspecified; M85.612 Other cyst of bone, left shoulder; Z87.891 Personal history of nicotine dependence
CPT/HCPCS: 36415; 64415; 73020; 85027; 94760; 97116; 97161; 97530; C1776; J0690; J1100; J2250; J2405; J2704; J3010

== ENCOUNTER 2019-09-03 22:38 | Emergency (ER) | payer MEDICARE, SELFPAY ==
--- NOTE | 2019-09-03 22:43 | ED_ITS ---
HPI - SOB/Dyspnea General Chief Complaint: Shortness of Breath/Dyspnea Stated Complaint: SOB Time Seen by Provider: 09/03/19 22:43 Source: patient and EMS Mode of arrival: EMS Limitations: no limitations History of Present Illness HPI Narrative: This is a 79-year-old female comes to the emergency department with complaint of shortness of breath. Patient states that she felt like her heart rate was elevated and started feeling increasingly short of breath and sweaty. She has a history AFib/flutter. She does take flecainide as well as diltiazem and clonidine. Patient also takes an aspirin 324 mg daily. Patient states they have been adjusting her flecainide recently. She states that she typically gets symptoms like this when she has episodes. She has recently diagnosed with atrial fibrillation about 2 or 3 months ago. She has had changes with her medications initially with cardia, she was started from 1 tablets daily to 1 tablet twice daily and today when she saw her primary care they discussed doing 2 tablets in the morning and 1 in the evening she but she had not had the time to initiate this. She also more recently has had flecainide added at started with 1 tablet daily and is now taking 1 tablet twice daily. Patient did state that she took an extra cardia at about 7:00 p.m. because she started having symptoms at 6. She did this the direction of her physician. Patient states around 304 she started feeling wobbly and a little flushed, around 6:00 p.m. she started feeling her heart was racing. Patient states her heart continued to feel fast, she felt a little bit nauseated a bit of a headache some tightness in her chest although she states it did feel like pain. No shortness of breath, no syncope or presyncope. No abdominal pain. She had a little bit episode of mild diarrhea this morning and no urinary issues. Patient states she had a surgery of her shoulder about a month and had some swelling in her legs at that time but has recently resolved. She also had a stress test on August 06, she has not had a cardiac catheterization, she has not had any prior cardiac interventions or ablation is a. 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 Related Data Home Medications Medication Instructions Recorded Confirmed Fluticasone Propionate (FLONASE) 2 spray INTRANASAL BEDTIME #0 11/20/12 08/06/19 clonidine HCl [Catapres] 0.3 mg PO BEDTIME #0 11/20/12 08/06/19 GLUCOSAMINE HCL/CHONDR HENRY A NA 1 tab PO BID #0 12/07/12 08/06/19 (Glucosamine-Chondroitin Caplet) cholecalciferol (vitamin D3) 5,000 unit PO DAILY #0 12/07/12 08/06/19 [Vitamin D3] citalopram [Celexa] 30 mg PO BEDTIME #0 12/07/12 08/06/19 multivitamin 1 cap PO DAILY #0 12/07/12 08/06/19 estradiol 10 mcg vaginal insert, 10 mcg VAG 2XW 10/17/18 08/06/19 in a starter dose pack meloxicam 7.5 mg tablet 7.5 mg PO BID #0 tab 05/18/19 08/06/19 acetaminophen 500 mg PO BID 07/18/19 08/06/19 albuterol sulfate 2 puff INHALATION DAILY PRN 07/18/19 07/18/19 aspirin 325 mg PO DAILY 07/18/19 08/06/19 cetirizine [Aller-Elsy] 10 mg PO BID 07/18/19 08/06/19 metoprolol succinate 25 mg PO BID 07/18/19 08/06/19 nystatin-triamcinolone 1 applictn TOPICAL BID PRN 07/18/19 07/18/19 flecainide See Rx Instructions .ROUTE .COMPLEX 08/07/19 08/07/19 Previous Rx's Medication Instructions Recorded docusate sodium [DOK] 100 mg PO BID #60 cap 08/07/19 oxycodone 5 mg PO Q4-6H PRN #40 tab 08/07/19 Allergies Allergy/AdvReac Type Severity Reaction Status Date / Time adhesive tape Allergy Severe Rash, Verified 08/06/19 06:47 blister with a clear type of dressing tape codeine [CODEINE] Allergy Severe Rash Verified 08/06/19 06:47 tetanus toxoid, adsorbed Allergy Severe Rash, Verified 08/06/19 06:47 Itch, joint pain thimerosal [THIMEROSAL] Allergy Severe Rash, Verified 08/06/19 06:47 Itch, joint pain Review of Systems Review of Systems ROS Unobtainable: All systems reviewed & are unremarkable except as noted in HPI and below Patient History Medical History Chronic neck and back pain (Acute) Depression (Acute) Easy bruisability (Acute) Former smoker (Acute) Hearing impairment (Acute) Heart murmur (Acute) HTN (hypertension) (Acute) Paroxysmal A-fib (Acute 07/09/19) Pneumonia (Acute) Skin cancer of face (Acute) Tingling (Acute) Wheezing (Acute) Surgical History History of arthroplasty of left knee (Acute ~2016) History of arthroplasty of right knee (Acute) Hx of bilateral cataract extraction (Acute) Hx of dilation and curettage (Acute) Hx of left breast biopsy (Acute) Hx of repair of left rotator cuff (Acute ~2001) Hx of tonsillectomy (Acute) Hx of tubal ligation (Acute) Social History household members: spouse Smoking Status: Former smoker alcohol intake: former Substance Use Type: does not use Exam Narrative Exam Narrative: GENERAL: Alert and oriented x three, well-nourished, well- appearing female in no acute distress. HEENT: Head normocephalic, atraumatic, EOMI, pupils reactive, face symmetric, moist mucous membranes NECK: Supple, full range of motion CARDIOVASCULAR: Regular rate and rhythm without murmurs, rubs or gallops. No JVD. RESPIRATORY: Breath sounds equal bilaterally, no wheezes rales or rhonchi. ABDOMEN: Soft, nontender. Normoactive bowel sounds all 4 quadrants. No guarding or rebound, rigidity, no mass : No CVA tenderness EXTREMITIES: Normal range of motion, no clubbing or edema. 2+ pulses bilateral lower extremities. Neurovascularly intact NEUROLOGICAL: Cranial nerves II through XII grossly intact. Moving all extremities SKIN: Warm, dry, no petechiae, no rashes or lesions. Initial Vital Signs Initial Vital Signs: Vital Signs Temperature 98.5 F 09/03/19 22:56 Pulse Rate 106 H 09/03/19 22:56 Respiratory Rate 16 09/03/19 22:56 Blood Pressure 185/77 H 09/03/19 22:56 Pulse Oximetry 97 09/03/19 22:56 Course Orders Ordered: ED Orders 09/03/19 22:30 B Type Natriuretic Peptide Stat Complete Blood Count AUTO DIFF Stat Comprehensive Metabolic Panel Stat Lipase Stat Partial Thromboplastin Time Stat Prothrombin Time INR Stat Troponin & CK Cardiac Panel Stat 09/03/19 22:47 XR chest 1V Stat EKG-12 Lead Stat 09/03/19 23:28 EKG-12 Lead Stat 09/04/19 00:03 Urine Microscopic Stat Discontinued Medications Aspirin (Aspirin Chew) 324 mg PO NOW ONE Stop: 09/03/19 22:48 Last Admin: 09/03/19 23:32 Dose: Not Given Documented by: PAUL Sodium Chloride (Normal Saline 0.9%) 1,000 mls @ 1,000 mls/hr IV BOLUS ONE Stop: 09/03/19 23:46 Last Infusion: 09/04/19 00:16 Dose: 0 mls/hr Documented by: Admin: 09/03/19 23:15 Dose: 1,000 mls/hr Documented by: PAUL Vital Signs Vital signs: Vital Signs - 8 hr 09/03/19 22:56 09/03/19 23:34 09/04/19 00:32 Temperature 98.5 F 98.4 F Pulse Rate 106 H 83 88 Respiratory Rate 16 16 18 Blood Pressure 185/77 H 188/79 H Blood Pressure [Right Arm] 170/91 H Pulse Oximetry 97 98 98 MDM - SOB/Dyspnea Lab Data Attestation: I reviewed the patient's lab results. Result diagrams: 09/03/19 22:30 09/03/19 22:30 Labs: Lab Results 09/03/19 09/03/19 09/03/19 Range/Units 22:30 22:30 22:30 WBC 14.1 H (4.5-11.0) X10^3/uL RBC 4.35 (4.0-5.2) X10^6/uL Hgb 14.0 (12.0-16.0) g/dL Hct 42.5 (36-46) % MCV 97.8 (80-100) fL MCH 32.2 (26-34) PG MCHC 33.0 (30-36) % RDW 13.6 (11.6-14.8) % Plt Count 305 (150-400) X10^3/uL Neut % (Auto) 59.6 (50-75) % Lymph % (Auto) 25.7 (25-40) % [place] % (Auto) 9.8 (3-14) % Eos % (Auto) 4.0 (2-4) % Baso % (Auto) 0.9 (0-2) % Neut # (Auto) 8400 H (7798-4592) /uL Lymph # (Auto) 3600 (8114-3931) /uL [place] # (Auto) 1400 H (0-900) /uL Eos # (Auto) 600 H (0-450) /uL Baso # (Auto) 100 (0-100) /uL PT 11.2 (10.1-12.7) SECONDS INR 1.0 (0.9-1.3) APTT 28 (26.4-36.2) SECONDS Sodium 137 (137-145) mmol/L Potassium 3.9 (3.4-5.1) mmol/L Chloride 105 (98-107) mmol/L Carbon Dioxide 24 (22-32) mmol/L BUN 23 H (7-17) mg/dL Creatinine 0.80 (0.52-1.04) mg/dL Estimated GFR > 60.0 (>60) mL/min BUN/Creatinine Ratio 28.8 H (6-22) Glucose 103 (80-110) mg/dL Calcium 9.8 (8.4-10.2) mg/dL Total Bilirubin 0.3 (0.2-1.3) mg/dL AST 27 (14-36) IU/L ALT 20 (9-52) IU/L Alkaline Phosphatase 87 (38-126) U/L Total Creatine Kinase 42 (30-135) U/L CK-MB (CK-2) TNP CK-MB (CK-2) Rel Index TNP Troponin I < 0.012 (0.01-0.034) ng/mL B-Natriuretic Peptide 134 H (<100) Total Protein 7.7 (6.3-8.2) g/dL Albumin 4.7 (3.5-5.0) g/dL Globulin 3.0 (1.7-4.1) g/dL Albumin/Globulin Ratio 1.6 (1.0-2.8) Lipase 188 (23-300) U/L Urine RBC (0-5/HPF) Urine WBC (0-5/HPF) Ur Squamous Epith Cells (0-5/HPF) Urine Bacteria (None) Ur Culture Indicated? 09/04/19 Range/Units 00:03 WBC (4.5-11.0) X10^3/uL RBC (4.0-5.2) X10^6/uL Hgb (12.0-16.0) g/dL Hct (36-46) % MCV (80-100) fL MCH (26-34) PG MCHC (30-36) % RDW (11.6-14.8) % Plt Count (150-400) X10^3/uL Neut % (Auto) (50-75) % Lymph % (Auto) (25-40) % [place] % (Auto) (3-14) % Eos % (Auto) (2-4) % Baso % (Auto) (0-2) % Neut # (Auto) (2399-1944) /uL Lymph # (Auto) (1497-6894) /uL [place] # (Auto) (0-900) /uL Eos # (Auto) (0-450) /uL Baso # (Auto) (0-100) /uL PT (10.1-12.7) SECONDS INR (0.9-1.3) APTT (26.4-36.2) SECONDS Sodium (137-145) mmol/L Potassium (3.4-5.1) mmol/L Chloride (98-107) mmol/L Carbon Dioxide (22-32) mmol/L BUN (7-17) mg/dL Creatinine (0.52-1.04) mg/dL Estimated GFR (>60) mL/min BUN/Creatinine Ratio (6-22) Glucose (80-110) mg/dL Calcium (8.4-10.2) mg/dL Total Bilirubin (0.2-1.3) mg/dL AST (14-36) IU/L ALT (9-52) IU/L Alkaline Phosphatase (38-126) U/L Total Creatine Kinase (30-135) U/L CK-MB (CK-2) CK-MB (CK-2) Rel Index Troponin I (0.01-0.034) ng/mL B-Natriuretic Peptide (<100) Total Protein (6.3-8.2) g/dL Albumin (3.5-5.0) g/dL Globulin (1.7-4.1) g/dL Albumin/Globulin Ratio (1.0-2.8) Lipase (23-300) U/L Urine RBC 0-1/hpf (0-5/HPF) Urine WBC 5-10/hpf H (0-5/HPF) Ur Squamous Epith Cells 5-10 /hpf H (0-5/HPF) Urine Bacteria Few (2-10) H (None) Ur Culture Indicated? Cult not indicated Urine Dip Bedside Urine Glucose Negative Bedside Urine Bilirubin - Negative Bedside Urine Ketone ++ 40 Urine Specific [place] 1.015 Bedside Urine Occult Blood +/- Bedside Urine pH 6.0 Bedside Urine Protein +/- 15 Bedside Urine Urobilinogen - Negative Bedside Urine Nitrite - Negative Bedside Urine Leukocytes - Negative Esterase Imaging Data Chest x-ray: My impression: nap. ECG Data Attestation: I personally reviewed and interpreted this ECG as follows: Interpretation: AFib with rate of 94 QRS 88 QTC of 415. Patient has occasional PVC. No discrete ST changes appreciated although there is some artifact. Patient is a prior EKG from 10/23/2009 with normal sinus rhythm. EKG 2. Shows sinus rhythm rate 80, P are 196 QRS 88 QTC of 421. Nonspecific change. MDM Narrative Medical decision making narrative: Patient appears to have converted while in the room, the patient's repeat EKG shows conversion to sinus rhythm. patient states she is feeling much better. Labs show white count of 14 with normal hemoglobin and platelets. Neutrophils, monocytes any samples are all elevated. Coags are normal, CMP shows normal electrolytes with a BUN of 23, patient has normal troponin. She has a prior TSH from May than 0.32. I spoke with Dr. Cotton, she recommends continuing with the new plans for medication changes that patient was supposed to enact today. Patient supposed to see Dr. Sanders in 2 weeks and she was supposed to call tomorrow to set up close follow-up which she will do. She is feeling much better at this time and feels comfortable with the plan. Discharge Plan Departure Patient Disposition: Home Clinical Impression: Atrial fibrillation with RVR Discharge Date/Time: 09/04/19 00:33 Activity Restrictions/Additional Instructions: Follow up with either your primary care or Dr. Cornejo for recheck. Increase your medication as directed earlier today by your physician. You may continue her other medications as prescribed. Return to the emergency department for recurrent symptoms, fast heartbeat, lightheadedness, passing out, new chest pain, shortness of breath, persistent vomiting, black or bloody stools or other new or concerning symptoms. Prescriptions: No Action clonidine HCl [Catapres] 0.3 MG tablet 0.3 mg PO BEDTIME Qty: 0 RF: 0 Fluticasone Propionate (FLONASE) 2 spray Intranasal BEDTIME Qty: 0 RF: 0 citalopram [Celexa] 20 MG tablet 30 mg PO BEDTIME Qty: 0 RF: 0 multivitamin Capsule 1 cap PO DAILY Qty: 0 RF: 0 GLUCOSAMINE HCL/CHONDR HENRY A NA (Glucosamine-Chondroitin Caplet) 1 tab PO BID Qty: 0 RF: 0 cholecalciferol (vitamin D3) [Vitamin D3] 2,000 unit Capsule 5,000 unit PO DAILY Qty: 0 RF: 0 meloxicam [Mobic] 7.5 mg tablet 7.5 mg PO BID Qty: 0 RF: 0 estradiol 10 mcg insert, dose pack 10 mcg VAG 2XW RF: 0 cetirizine [Aller-Esly] 10 mg Tablet 10 mg PO BID RF: 0 aspirin 325 mg Tablet 325 mg PO DAILY RF: 0 acetaminophen 500 mg Tablet 500 mg PO BID RF: 0 metoprolol succinate 25 mg Tablet Extended Release 24 Hr 25 mg PO BID RF: 0 nystatin-triamcinolone 100,000-0.1 unit/gram-% ointment 1 applictn TOPICAL BID PRN (Reason: vaginally) RF: 0 albuterol sulfate 90 mcg/actuation Hfa Aerosol Inhaler 2 puff INHALATION DAILY PRN (Reason: wheeze ) RF: 0 docusate sodium [DOK] 100 mg Capsule 100 mg PO BID Qty: 60 RF: 0 oxycodone 5 mg Tablet 5 mg PO Q4-6H PRN (Reason: Pain, Moderate (4-6)) Qty: 40 RF: 0 flecainide 50 mg tablet See Rx Instructions .ROUTE .COMPLEX RF: 0 Referrals: Martita Cornejo MD [Physician] - Danelle Gonzalez MD [Primary Care Provider] -
--- NOTE | 2019-09-03 22:47 | DI.RAD.S_ITS ---
PROCEDURE: XR CHEST 1V INDICATIONS: shortness of breath, atrial flutter/tachycardia TECHNIQUE: One view of the chest was acquired. COMPARISON: [facility], , CHEST 2 VIEW, 01/07/2018, 16:24. FINDINGS: Surgical changes and devices: Status post left shoulder arthroplasty. Lungs and pleura: Minimal diffuse interstitial prominence, not significantly changed. No focal consolidation. No pleural effusions or pneumothorax. Mediastinum: Mediastinal contours appear normal. Heart size is normal. Bones and chest wall: No suspicious bony lesions. Overlying soft tissues appear unremarkable. Moderate to severe degenerative changes of the right glenohumeral joint. IMPRESSION: Stable examination of the chest without acute cardiopulmonary process. Dictated by: Link Le M.D. on 09/04/2019 at 7:57 Approved by: Link Le M.D. on 09/04/2019 at 7:58
[2019-09-03 22:52] LABS: Add Manual Diff / Slide Review NO; Basophils Absolute Auto 100 /uL (0-100); Basophils Percent Auto 0.9 % (0-2); Eosinophils Absolute Auto 600 /uL (0-450); Hematocrit 42.5 % (36-46); Lymphocytes Absolute Auto 3600 /uL (1100-4500); Lymphocytes Percent Auto 25.7 % (25-40); Mean Corpuscular Hemoglobin 32.2 PG (26-34); Mean Corpuscular Volume 97.8 fL (80-100); Monocytes Absolute Auto 1400 /uL (0-900); Monocytes Percent Auto 9.8 % (3-14); Neutrophils Absolute Auto 8400 /uL (1500-7000); Neutrophils Percent Auto 59.6 % (50-75); Platelet Count 305 X10^3/uL (150-400); Red Blood Cell Count 4.35 X10^6/uL (4.0-5.2); Red Cell Distribution Width 13.6 % (11.6-14.8); White Blood Cell Count 14.1 X10^3/uL (4.5-11.0)
[2019-09-03 22:56] VITALS: BP 185/77; PULSE 106; RESP 16; TEMP 36.9; O2SAT 97; BMI 29.2
[2019-09-03 22:57] LABS: Prothrombin Time 11.2 SECONDS (10.1-12.7)
[2019-09-03 23:00] LABS: PTT Partial Thromboplastin Tim 28 SECONDS (26.4-36.2)
[2019-09-03 23:01] LABS: Alanine Aminotransferase 20 IU/L (9-52); Albumin 4.7 g/dL (3.5-5.0); Albumin Globulin Ratio 1.6 (1.0-2.8); Alkaline Phosphatase 87 U/L (38-126); Aspartate Aminotransferase 27 IU/L (14-36); BUN Creatinine Ratio 28.8 (6-22); Bilirubin Total 0.3 mg/dL (0.2-1.3); Blood Urea Nitrogen 23 mg/dL (7-17); Calcium 9.8 mg/dL (8.4-10.2); Carbon Dioxide 24 mmol/L (22-32); Chloride 105 mmol/L (98-107); Creatine Kinase 42 U/L (30-135); Estimated Glomerular Filt Rate > 60.0 mL/min (>60); Glucose 103 mg/dL (80-110); HEMOLYSIS 23 (0-50); Lipase 188 U/L (23-300); Potassium 3.9 mmol/L (3.4-5.1); Sodium 137 mmol/L (137-145); Total Protein 7.7 g/dL (6.3-8.2)
[2019-09-03 23:13] LABS: Troponin I < 0.012 ng/mL (0.01-0.034)
[2019-09-03] MEDS: SODIUM CHLORIDE 0.9% 1,000 ML 1000 ML IV (23:15)
[2019-09-03 23:16] LABS: B Type Natriuretic Peptide 134 (<100)
[2019-09-03 23:34] VITALS: BP 170/91; PULSE 83; RESP 16; O2SAT 98
--- NOTE | 2019-09-03 23:35 | PC.NURSE ---
Patient converted to NSR while lying on stretcher. 2nd 12Lead EKG ordered and done.
[2019-09-04 00:27] LABS: RBC Urine 0-1/HPF (0-5/HPF); Squamous Epithelial Cell Urine 5-10 /HPF (0-5/HPF); WBC Urine 5-10/HPF (0-5/HPF)
[2019-09-04 00:28] LABS: Bacteria Urine Few (2-10); Culture Indicated Urine Cult Not Indicated
[2019-09-04 00:32] VITALS: BP 188/79; PULSE 88; RESP 18; TEMP 36.9; O2SAT 98
== END 2019-09-04 00:33 | disposition home or self-care (01) ==
PROVIDERS: Emergency Provider Emergency Medicine; PCP Family Medicine
DX: I48.20 Chronic atrial fibrillation, unspecified (principal); R79.89 Other specified abnormal findings of blood chemistry
CPT/HCPCS: 36415; 71045; 80053; 81003; 81015; 82550; 82553; 83690; 83880; 84484; 85025; 85610; 85730; 93005; 96360; 99283; 99285

== ENCOUNTER 2019-09-05 13:10 | Emergency (ER) | payer MEDICARE, SELFPAY ==
[2019-09-05 13:21] VITALS: BP 162/57; PULSE 75; RESP 13; TEMP 36.6; O2SAT 94; BMI 29.2
--- NOTE | 2019-09-05 13:35 | ED_ITS ---
HPI - Arrhythmia/Palpitations General Chief Complaint: Arrhythmia/Palpitations Stated Complaint: afib event,shaking Time Seen by Provider: 09/05/19 13:21 Source: patient Mode of arrival: Wheelchair Limitations: no limitations History of Present Illness HPI narrative: 79-year-old female who has a history of paroxysmal atrial fibrillation. She is not on any anticoagulation after discussion with her primary provider because she was taken nonsteroidal anti-inflammatories. She states that 2 days ago she had an episode of atrial fibrillation with RVR. She was seen here in the emergency department this confirmed on EKG. She converted on her own prior to any interventions. Was discharged home. States that since then she has not felt very well. No chest pain or shortness of breath. States that she had an episode of AFib today when she was at the grocery store. States she did feel lightheaded with it again no chest pain or shortness of breath. Came into the emergency department because of not feeling well and the lightheadedness. Related Data Home Medications Medication Instructions Recorded Confirmed Fluticasone Propionate (FLONASE) 2 spray INTRANASAL BEDTIME #0 11/20/12 08/06/19 clonidine HCl [Catapres] 0.3 mg PO BEDTIME #0 11/20/12 09/05/19 GLUCOSAMINE HCL/CHONDR HENRY A NA 1 tab PO BID #0 12/07/12 08/06/19 (Glucosamine-Chondroitin Caplet) cholecalciferol (vitamin D3) 5,000 unit PO DAILY #0 12/07/12 08/06/19 [Vitamin D3] citalopram [Celexa] 30 mg PO BEDTIME #0 12/07/12 09/05/19 multivitamin 1 cap PO DAILY #0 12/07/12 08/06/19 estradiol 10 mcg vaginal insert, 10 mcg VAG 2XW 10/17/18 09/05/19 in a starter dose pack meloxicam 7.5 mg tablet 7.5 mg PO BID #0 tab 05/18/19 09/05/19 acetaminophen 500 mg PO BID 07/18/19 08/06/19 albuterol sulfate 2 puff INHALATION DAILY PRN 07/18/19 07/18/19 aspirin 325 mg PO DAILY 07/18/19 08/06/19 cetirizine [Aller-Elsy] 10 mg PO BID 07/18/19 08/06/19 metoprolol succinate 25 mg PO BID 07/18/19 09/05/19 nystatin-triamcinolone 1 applictn TOPICAL BID PRN 07/18/19 07/18/19 flecainide 50 mg PO BID 08/07/19 09/05/19 diltiazem HCl [Cartia XT] 120 mg PO DAILY 09/05/19 09/05/19 Previous Rx's Medication Instructions Recorded docusate sodium [DOK] 100 mg PO BID #60 cap 08/07/19 oxycodone 5 mg PO Q4-6H PRN #40 tab 08/07/19 apixaban [Eliquis] 5 mg PO BID #60 tab 09/05/19 Allergies Allergy/AdvReac Type Severity Reaction Status Date / Time adhesive tape Allergy Severe Rash, Verified 09/05/19 13:21 blister with a clear type of dressing tape codeine [CODEINE] Allergy Severe Rash Verified 09/05/19 13:21 tetanus toxoid, adsorbed Allergy Severe Rash, Verified 09/05/19 13:21 Itch, joint pain thimerosal [THIMEROSAL] Allergy Severe Rash, Verified 09/05/19 13:21 Itch, joint pain metoprolol Allergy Verified 09/05/19 13:21 Review of Systems Constitutional Constitutional: Reports fatigue, Denies fever(s) and Denies headache(s) ENT Ears, Nose, Mouth, and Throat: Denies vertigo, Reports dizziness and Denies headache(s) Cardiovascular Cardiovascular: Denies chest pain, Denies syncope, Reports rapid heart rate, Reports palpitations and Denies dyspnea Respiratory Respiratory: Denies cough, Denies dyspnea and Denies wheezing Gastrointestinal Gastrointestinal: Denies abdominal pain, Denies nausea and Denies vomiting Genitourinary Genitourinary: Denies dysuria Musculoskeletal Musculoskeletal: Denies myalgias and Denies arthralgias Integumentary/Breasts Skin/Breast: Denies lesions and Denies rash Neurologic Neurologic: Denies behavioral changes, Denies vertigo, Reports dizziness, Denies syncope and Denies headache(s) Psychiatric Psychiatric: Denies behavioral changes Endocrine Endocrine: Reports fatigue and Reports palpitations Hematologic/Lymphatic Hematologic/Lymphatic: Denies easy bleeding and Denies easy bruising Allergic/Immunologic Allergic/Immunologic: Denies urticaria and Denies wheezing Patient History Medical History Chronic neck and back pain (Acute) Depression (Acute) Easy bruisability (Acute) Former smoker (Acute) Hearing impairment (Acute) Heart murmur (Acute) HTN (hypertension) (Acute) Paroxysmal A-fib (Acute 07/09/19) Pneumonia (Acute) Skin cancer of face (Acute) Tingling (Acute) Wheezing (Acute) Social History household members: spouse Smoking Status: Former smoker alcohol intake: former alcohol intake frequency: holidays/special occasions only Substance Use Type: does not use Exam Initial Vital Signs Initial Vital Signs: Vital Signs Temperature 97.8 F 09/05/19 13:21 Pulse Rate 75 09/05/19 13:21 Respiratory Rate 13 09/05/19 13:21 Blood Pressure 162/57 H 09/05/19 13:21 Pulse Oximetry 94 09/05/19 13:21 Const General: cooperative, healthy appearing, comfortable, well developed, well groomed and No acute distress Orientation: alert, awake and oriented x3 HENGA Head: normal to inspection and normocephalic Resp Effort & Inspection: normal respiratory effort Auscultation: clear to auscultation bilaterally Cardio Rate: regular rate Rhythm: regular rhythm Pulses: radial pulses present GI Inspection: non-distended Palpation: soft and No firm Skin Lesions: no lesions Rashes: no rashes Neuro General: alert, awake and oriented x3 Cognition: normal cognition Speech: speech normal Gait: normal gait Extrem General: normal to inspection and capillary refill normal Psych Appearance: grossly normal and well kempt Scores GCS Westley coma scale eye opening: Spontaneous Westley coma scale verbal response: Orientated Westley coma scale motor response: Obey commands Hathorne coma scale total score: 15 Course Orders Ordered: ED Orders 09/05/19 13:20 B Type Natriuretic Peptide Stat Basic Metabolic Panel Stat Complete Blood Count AUTO DIFF Stat Lipase Stat Partial Thromboplastin Time Stat Prothrombin Time INR Stat Troponin I Stat 09/05/19 13:22 EKG-12 Lead Stat Vital Signs Vital signs: Vital Signs - 8 hr 09/05/19 13:21 09/05/19 13:36 09/05/19 14:00 Temperature 97.8 F Pulse Rate 75 69 65 Respiratory Rate 13 13 14 Blood Pressure 162/57 H Blood Pressure [Right Arm] 132/54 L 143/53 H Pulse Oximetry 94 97 97 09/05/19 14:40 Temperature Pulse Rate 83 Respiratory Rate 17 Blood Pressure Blood Pressure [Right Arm] 149/56 H Pulse Oximetry 98 MDM - Arrhythmia/Palpitations Lab Data Attestation: I reviewed the patient's lab results. Result diagrams: 09/05/19 13:20 09/05/19 13:20 Labs: Lab Results 09/05/19 09/05/19 09/05/19 Range/Units 13:20 13:20 13:20 WBC 10.8 (4.5-11.0) X10^3/uL RBC 4.16 (4.0-5.2) X10^6/uL Hgb 13.7 (12.0-16.0) g/dL Hct 40.3 (36-46) % MCV 96.9 (80-100) fL MCH 32.8 (26-34) PG MCHC 33.9 (30-36) % RDW 13.5 (11.6-14.8) % Plt Count 265 (150-400) X10^3/uL Neut % (Auto) 61.6 (50-75) % Lymph % (Auto) 21.6 L (25-40) % [place] % (Auto) 10.4 (3-14) % Eos % (Auto) 5.7 H (2-4) % Baso % (Auto) 0.7 (0-2) % Neut # (Auto) 6600 (9444-6122) /uL Lymph # (Auto) 2300 (8248-2582) /uL Alger # (Auto) 1100 H (0-900) /uL Eos # (Auto) 600 H (0-450) /uL Baso # (Auto) 100 (0-100) /uL PT 11.9 (10.1-12.7) SECONDS INR 1.0 (0.9-1.3) APTT 29 (26.4-36.2) SECONDS Sodium (137-145) mmol/L Potassium (3.4-5.1) mmol/L Chloride (98-107) mmol/L Carbon Dioxide (22-32) mmol/L BUN (7-17) mg/dL Creatinine (0.52-1.04) mg/dL Estimated GFR (>60) mL/min BUN/Creatinine Ratio (6-22) Glucose (80-110) mg/dL Calcium (8.4-10.2) mg/dL Troponin I 0.126 H* (0.01-0.034) ng/mL B-Natriuretic Peptide < 100 (<100) Lipase 180 (23-300) U/L 09/05/19 Range/Units 13:20 WBC (4.5-11.0) X10^3/uL RBC (4.0-5.2) X10^6/uL Hgb (12.0-16.0) g/dL Hct (36-46) % MCV (80-100) fL MCH (26-34) PG MCHC (30-36) % RDW (11.6-14.8) % Plt Count (150-400) X10^3/uL Neut % (Auto) (50-75) % Lymph % (Auto) (25-40) % Alger % (Auto) (3-14) % Eos % (Auto) (2-4) % Baso % (Auto) (0-2) % Neut # (Auto) (0507-8978) /uL Lymph # (Auto) (4099-2984) /uL Alger # (Auto) (0-900) /uL Eos # (Auto) (0-450) /uL Baso # (Auto) (0-100) /uL PT (10.1-12.7) SECONDS INR (0.9-1.3) APTT (26.4-36.2) SECONDS Sodium 136 L (137-145) mmol/L Potassium 4.0 (3.4-5.1) mmol/L Chloride 105 (98-107) mmol/L Carbon Dioxide 21 L (22-32) mmol/L BUN 26 H (7-17) mg/dL Creatinine 0.70 (0.52-1.04) mg/dL Estimated GFR > 60.0 (>60) mL/min BUN/Creatinine Ratio 37.1 H (6-22) Glucose 102 (80-110) mg/dL Calcium 9.6 (8.4-10.2) mg/dL Troponin I (0.01-0.034) ng/mL B-Natriuretic Peptide (<100) Lipase (23-300) U/L Imaging Data perfusion scan: Radiologist's impression: [address] [address] Nuclear Medicine Report Signed Patient: Monica Blanchard JMR#: [id number] : 1Acct:[id number] Age/Sex: 79 / FDate of Service: 07/22/19 Loc: RAD Accession Number: [id number] Procedure: NM homero perf SPECT rest & str Ordering Provider: Martita Gonzalez MD PROCEDURE: NM HOMERO PERF SPECT REST & STR Rest and exercise myocardial perfusion SPECT with gated imaging and ejection fraction RADIOPHARMACEUTICAL: 25.1 mCi Tc-99m sestamibi IV at rest and 19.1 mCi Tc-99m sestamibi IV at peak exercise. A two day-protocol was performed. INDICATIONS: Persistent atrial fibrillation TECHNIQUE: Radiopharmaceutical was injected at peak stress test, and also at rest. SPECT images were obtained. SPECT myocardial perfusion images were displayed in short axis, horizontal long axis, and vertical long axis views. Gated images were reviewed using [employer] software. COMPARISON: CARDIAC STRESS: A standard Wallace treadmill exercise tolerance test was performed by the patient under the supervision of an attending staff. The patient exercised for 5 minutes and 11 seconds; functional aerobic impairment (CODY) is -10%. Hemodynamic data: There is normal blood pressure and heart rate response to exercise stress. Patient achieved 94% of maximum predicted heart rate at peak exercise. Symptoms: Patient denied chest pain during exercise. EKG: No diagnostic EKG changes of ischemia; occasional PACs noted. FINDINGS: Raw data: There is good myocardial labeling by radiotracer. No significant motion artifacts. Sjqx-[id number] ratio is 0.38 (normal is less than 0.38 for sestamibi tracer, and less than 0.50 for thallium tracer). Left ventricle function: Gated images demonstrate normal left ventricle wall thickening. No segmental wall motion abnormality. No transient ischemic dilation; TID is 0.94 (normal less than 1.3). The left ventricle resting end-diastolic volume is 74 mL. Left ventricle stress ejection fraction is 84%; normal values are above 45%. Myocardial perfusion: There is normal distribution of activity in the left and right ventricular myocardium. No fixed or reversible perfusion defects. IMPRESSION: Low risk, normal treadmill nuclear stress test. 1) No perfusion evidence of ischemia or infarction. 2) Normal left ventricular size, wall motion, and systolic function (EF post stress 84%). 3) No ECG evidence of ischemia. Occasional PACs with exercise. 4) No angina during the study. 5) Above average exercise tolerance (7.0 METs, CODY -10%). Target heart rate achieved. Appropriate BP response to exercise. 6) No prior nuclear stress test available for comparison. Dictated by: Martita Gonzalez MD on 07/25/2019 at 13:39 Approved by: Martita Gonzalez MD on 07/25/2019 at 13:43 ECG Data Attestation: I personally reviewed and interpreted this ECG as follows: Prior ECG tracings: not available for review Interpretation: Sinus rhythm Normal axis Rate is 70 Normal QRS Normal QTC No ST T wave changes MDM Narrative Medical decision making narrative: Patient is in sinus rhythm here in the ER. Is not having chest pain has not had any chest pain. No shortness of breath. Did have a episode of atrial fibrillation earlier today and seemed to have some lightheadedness associated with it. I did discuss the case with Dr. gonzalez. We discussed the troponin elevation today and the fact that was negative a couple days ago. We were able to go back through the patient's note and she did have an unremarkable nuclear perfusion study done approximately 1 month ago. This is very reassuring in her situation. Cardiology myself do feel like the elevated troponin is most likely secondary to her episodes of atrial fibrillation and not ACS. Patient has recently been switch to flecainide. After discussion with Cardiology patient was informed that she can take 1 extra dose of the flecainide if she feels herself going atrial fibrillation. She expressed understanding of this. Cardiology also recommend that she be on Eliquis. We did discuss the risks and benefits of her being on the Mobic along with the Eliquis. She was provided a prescription for the Eliquis however is going to talk with her [facility] doctor bowel potentially other medication she can take for her shoulder pain. Will hold on further workup for now. Patient was given return precautions. Both her and her who is at bedside expressed understanding and agreement plan. Discharge Plan Departure Patient Disposition: Home Clinical Impression: Atrial fibrillation with RVR Discharge Date/Time: 09/05/19 15:31 Instructions: DI for Atrial Fibrillation Activity Restrictions/Additional Instructions: If you have an episode of atrial fibrillation you can take 1 extra dose of the 50 mg of flecainide. Also recommend that you contact your assistant public defender for follow-up. Contact your primary provider to discuss switching your Mobic to another medication. Your given a prescription for anticoagulation however do not take this into you talk with her primary provider about stopping the Mobic. You can stop by your assistant public defender office for a coupon for this anticoagulation. Return to the emergency department for any new or worsening symptoms Prescriptions: New Eliquis 5 mg tablet 5 mg PO BID Qty: 60 RF: 2 No Action clonidine HCl [Catapres] 0.3 MG tablet 0.3 mg PO BEDTIME Qty: 0 RF: 0 Fluticasone Propionate (FLONASE) 2 spray Intranasal BEDTIME Qty: 0 RF: 0 citalopram [Celexa] 20 MG tablet 30 mg PO BEDTIME Qty: 0 RF: 0 multivitamin Capsule 1 cap PO DAILY Qty: 0 RF: 0 GLUCOSAMINE HCL/CHONDR HENRY A NA (Glucosamine-Chondroitin Caplet) 1 tab PO BID Qty: 0 RF: 0 cholecalciferol (vitamin D3) [Vitamin D3] 2,000 unit Capsule 5,000 unit PO DAILY Qty: 0 RF: 0 meloxicam [Mobic] 7.5 mg tablet 7.5 mg PO BID Qty: 0 RF: 0 estradiol 10 mcg insert, dose pack 10 mcg VAG 2XW RF: 0 cetirizine [Aller-Elsy] 10 mg Tablet 10 mg PO BID RF: 0 aspirin 325 mg Tablet 325 mg PO DAILY RF: 0 acetaminophen 500 mg Tablet 500 mg PO BID RF: 0 metoprolol succinate 25 mg Tablet Extended Release 24 Hr 25 mg PO BID RF: 0 nystatin-triamcinolone 100,000-0.1 unit/gram-% ointment 1 applictn TOPICAL BID PRN (Reason: as directed) RF: 0 albuterol sulfate 90 mcg/actuation Hfa Aerosol Inhaler 2 puff INHALATION DAILY PRN (Reason: wheeze ) RF: 0 docusate sodium [DOK] 100 mg Capsule 100 mg PO BID Qty: 60 RF: 0 oxycodone 5 mg Tablet 5 mg PO Q4-6H PRN (Reason: Pain, Moderate (4-6)) Qty: 40 RF: 0 flecainide 50 mg tablet 50 mg PO BID RF: 0 diltiazem HCl [Cartia XT] 120 mg capsule,extended release 24hr 120 mg PO DAILY RF: 0 Referrals: Danelle Gonzalez MD [Primary Care Provider] -
[2019-09-05 13:36] VITALS: BP 132/54; PULSE 69; RESP 13; O2SAT 97
[2019-09-05 13:44] LABS: Prothrombin Time 11.9 SECONDS (10.1-12.7)
[2019-09-05 13:45] LABS: Add Manual Diff / Slide Review NO; Basophils Absolute Auto 100 /uL (0-100); Basophils Percent Auto 0.7 % (0-2); Eosinophils Absolute Auto 600 /uL (0-450); Eosinophils Percent Auto 5.7 % (2-4); Hematocrit 40.3 % (36-46); Hemoglobin 13.7 g/dL (12.0-16.0); Lymphocytes Absolute Auto 2300 /uL (1100-4500); Lymphocytes Percent Auto 21.6 % (25-40); Mean Corpuscular HGB Conc 33.9 % (30-36); Mean Corpuscular Hemoglobin 32.8 PG (26-34); Mean Corpuscular Volume 96.9 fL (80-100); Monocytes Absolute Auto 1100 /uL (0-900); Monocytes Percent Auto 10.4 % (3-14); Neutrophils Absolute Auto 6600 /uL (1500-7000); Neutrophils Percent Auto 61.6 % (50-75); Platelet Count 265 X10^3/uL (150-400); Red Blood Cell Count 4.16 X10^6/uL (4.0-5.2); Red Cell Distribution Width 13.5 % (11.6-14.8); White Blood Cell Count 10.8 X10^3/uL (4.5-11.0)
[2019-09-05 13:47] LABS: PTT Partial Thromboplastin Tim 29 SECONDS (26.4-36.2)
[2019-09-05 13:54] LABS: Lipase 180 U/L (23-300)
[2019-09-05 14:00] VITALS: BP 143/53; PULSE 65; RESP 14; O2SAT 97
[2019-09-05 14:02] LABS: B Type Natriuretic Peptide < 100 (<100)
[2019-09-05 14:33] LABS: Troponin I 0.126 ng/mL (0.01-0.034)
[2019-09-05 14:40] VITALS: BP 149/56; PULSE 83; RESP 17; O2SAT 98
[2019-09-05 15:13] LABS: BUN Creatinine Ratio 37.1 (6-22); Blood Urea Nitrogen 26 mg/dL (7-17); Calcium 9.6 mg/dL (8.4-10.2); Carbon Dioxide 21 mmol/L (22-32); Chloride 105 mmol/L (98-107); Estimated Glomerular Filt Rate > 60.0 mL/min (>60); Glucose 102 mg/dL (80-110); HEMOLYSIS 20 (0-50); Sodium 136 mmol/L (137-145)
== END 2019-09-05 15:31 | disposition home or self-care (01) ==
PROVIDERS: Emergency Provider Emergency Medicine; PCP Family Medicine
DX: I48.20 Chronic atrial fibrillation, unspecified (principal)
CPT/HCPCS: 36415; 80048; 83690; 83880; 84484; 85025; 85610; 85730; 93005; 99283; 99284

== ENCOUNTER → 2019-09-20 10:07 | Outpatient (CLI) | payer MEDICARE, SELFPAY ==
[2019-09-20 10:41] LABS: Add Manual Diff / Slide Review NO; Basophils Absolute Auto 100 /uL (0-100); Basophils Percent Auto 1.3 % (0-2); Eosinophils Absolute Auto 400 /uL (0-450); Eosinophils Percent Auto 6.1 % (2-4); Hematocrit 37.7 % (36-46); Hemoglobin 12.5 g/dL (12.0-16.0); Lymphocytes Absolute Auto 2300 /uL (1100-4500); Lymphocytes Percent Auto 32.4 % (25-40); Mean Corpuscular HGB Conc 33.3 % (30-36); Mean Corpuscular Hemoglobin 32.2 PG (26-34); Mean Corpuscular Volume 96.9 fL (80-100); Monocytes Absolute Auto 600 /uL (0-900); Monocytes Percent Auto 8.4 % (3-14); Neutrophils Absolute Auto 3700 /uL (1500-7000); Neutrophils Percent Auto 51.8 % (50-75); Platelet Count 260 X10^3/uL (150-400); Red Blood Cell Count 3.89 X10^6/uL (4.0-5.2); White Blood Cell Count 7.2 X10^3/uL (4.5-11.0)
[2019-09-20 11:01] LABS: BUN Creatinine Ratio 27.1 (6-22); Blood Urea Nitrogen 19 mg/dL (7-17); Calcium 9.8 mg/dL (8.4-10.2); Carbon Dioxide 27 mmol/L (22-32); Chloride 103 mmol/L (98-107); Estimated Glomerular Filt Rate > 60.0 mL/min (>60); Glucose 99 mg/dL (80-110); HEMOLYSIS < 15 (0-50); Potassium 4.4 mmol/L (3.4-5.1); Sodium 137 mmol/L (137-145)
== END ==
PROVIDERS: PCP Family Medicine; Visit Provider Internal Medicine Cardiovascular Disease
DX: I10 Essential (primary) hypertension (principal)
CPT/HCPCS: 36415; 80048; 85025

== ENCOUNTER 2020-01-15 12:18 | Emergency (ER) | payer MEDICARE, SELFPAY ==
[2020-01-15 12:22] VITALS: BP 178/78; PULSE 62; RESP 18; TEMP 36.8; O2SAT 100
--- NOTE | 2020-01-15 12:32 | ED.GENADULT ---
HPI - General Adult General Chief complaint: Dizziness Stated complaint: Dizziness Time Seen by Provider: 01/15/20 12:23 Source: patient and EMS Mode of arrival: EMS Limitations: no limitations History of Present Illness HPI narrative: 79-year-old female brought in by EMS for concerns of lightheadedness. Patient states that she was sitting in a chair. States that she stood up and became lightheaded. She denies any vertigo sensation. Was not having chest pain or shortness of breath or headache or palpitations the time. She states that it did feel like her eyes were blurry. No focal weakness. She called EMS. She states that approximately 15-20 minutes prior to doing this she did take some CBD oil by mouth. She states that was at the bottom of the bottle. She thinks that it potentially was more than what she normally takes. She does take this for arthritis. Related Data Home Medications Medication Instructions Recorded Confirmed Fluticasone Propionate (FLONASE) 2 spray INTRANASAL BEDTIME #0 11/20/12 08/06/19 clonidine HCl [Catapres] 0.3 mg PO DAILY #0 11/20/12 01/15/20 GLUCOSAMINE HCL/CHONDR HENRY A NA 1 tab PO BID #0 12/07/12 08/06/19 (Glucosamine-Chondroitin Caplet) cholecalciferol (vitamin D3) 5,000 unit PO DAILY #0 12/07/12 08/06/19 [Vitamin D3] citalopram [Celexa] 30 mg PO DAILY #0 12/07/12 01/15/20 multivitamin 1 cap PO DAILY #0 12/07/12 08/06/19 estradiol 10 mcg vaginal insert, 10 mcg VAG 2XW 10/17/18 01/15/20 in a starter dose pack meloxicam 7.5 mg tablet 15 mg PO DAILY #0 tab 05/18/19 09/05/19 acetaminophen 500 mg PO BID 07/18/19 08/06/19 aspirin 325 mg PO DAILY 07/18/19 08/06/19 cetirizine [Aller-Elsy] 10 mg PO BID 07/18/19 08/06/19 metoprolol succinate 25 mg PO BID 07/18/19 09/05/19 nystatin-triamcinolone 1 applictn TOPICAL BID PRN 07/18/19 07/18/19 flecainide 50 mg PO BID 08/07/19 09/05/19 albuterol sulfate 2 puff INHALATION Q4-6H PRN 01/15/20 01/15/20 celecoxib 100 mg PO BID 01/15/20 01/15/20 diltiazem HCl 120 mg PO BID 01/15/20 01/15/20 omeprazole 20 mg PO QAM 01/15/20 01/15/20 Previous Rx's Medication Instructions Recorded docusate sodium [DOK] 100 mg PO BID #60 cap 08/07/19 apixaban [Eliquis] 5 mg PO BID #60 tab 09/05/19 Allergies Allergy/AdvReac Type Severity Reaction Status Date / Time adhesive tape Allergy Severe Rash, Verified 09/05/19 13:21 blister with a clear type of dressing tape codeine [CODEINE] Allergy Severe Rash Verified 09/05/19 13:21 tetanus toxoid, adsorbed Allergy Severe Rash, Verified 09/05/19 13:21 Itch, joint pain thimerosal [THIMEROSAL] Allergy Severe Rash, Verified 09/05/19 13:21 Itch, joint pain metoprolol Allergy Verified 09/05/19 13:21 Review of Systems Constitutional Constitutional: Denies fever(s), Denies headache(s) and Denies weakness Eyes Eyes: Reports blurry vision ENT Ears, Nose, Mouth, and Throat: Denies vertigo, Reports dizziness, Denies headache(s) and Reports disequilibrium Cardiovascular Cardiovascular: Denies chest pain, Denies edema, Denies palpitations and Denies dyspnea Respiratory Respiratory: Denies cough and Denies dyspnea Gastrointestinal Gastrointestinal: Denies abdominal pain, Denies nausea and Denies vomiting Genitourinary Genitourinary: Denies dysuria Musculoskeletal Musculoskeletal: Denies myalgias and Denies arthralgias Integumentary/Breasts Skin/Breast: Denies lesions and Denies rash Neurologic Neurologic: Denies vertigo, Reports dizziness, Denies headache(s), Denies paresthesias, Reports disequilibrium and Denies weakness Endocrine Endocrine: Denies palpitations Hematologic/Lymphatic Hematologic/Lymphatic: Denies easy bleeding and Denies easy bruising Patient History Medical History Chronic neck and back pain (Acute) Depression (Acute) Easy bruisability (Acute) Former smoker (Acute) Hearing impairment (Acute) Heart murmur (Acute) HTN (hypertension) (Acute) Paroxysmal A-fib (Acute 07/09/19) Pneumonia (Acute) Skin cancer of face (Acute) Tingling (Acute) Wheezing (Acute) Surgical History History of arthroplasty of left knee (Acute ~2016) History of arthroplasty of right knee (Acute) Hx of bilateral cataract extraction (Acute) Hx of dilation and curettage (Acute) Hx of left breast biopsy (Acute) Hx of repair of left rotator cuff (Acute ~2001) Hx of tonsillectomy (Acute) Hx of tubal ligation (Acute) Social History household members: spouse Smoking Status: Former smoker alcohol intake: former Smoking Status: Former smoker alcohol intake frequency: holidays/special occasions only Substance Use Type: does not use Exam Initial Vital Signs Initial Vital Signs: Vital Signs Temperature 98.3 F 01/15/20 12:22 Pulse Rate 62 01/15/20 12:22 Respiratory Rate 18 01/15/20 12:22 Blood Pressure 178/78 H 01/15/20 12:22 Pulse Oximetry 100 01/15/20 12:22 Const General: cooperative, comfortable, well developed and well groomed Limitations: mental status not altered HENMT Head: normal to inspection and normocephalic Ears: hearing grossly normal bilaterally Eyes Pupils: PERRL EOM: EOM intact bilaterally Resp Effort & Inspection: normal respiratory effort Auscultation: clear to auscultation bilaterally Cardio Rate: regular rate Rhythm: regular rhythm Pulses: radial pulses present GI Inspection: non-distended Palpation: soft and No firm Skin Lesions: no lesions Rashes: no rashes Neuro General: alert, awake and oriented x3 Cranial Nerves: CN's II-XI intact bilaterally Cognition: normal cognition Speech: speech normal Motor: muscle tone normal throughout Sensory Exam: no sensory deficits noted Extrem General: normal to inspection and capillary refill normal Psych Appearance: grossly normal and well kempt Scores GCS [place] coma scale eye opening: Spontaneous [place] coma scale verbal response: Orientated [place] coma scale motor response: Obey commands [place] coma scale total score: 15 NIH Stroke Scale Level of Conciousness: Alert, keenly responsive Ask month/age: Answers both questions correctly. Open/close eyes, close hand: Performs both tasks correctly Best gaze horizontal: Normal Visual deshpande: No visual loss Facial palsy: Normal symetrical movement Left arm drift: No drift for full 10 sec Right arm drift: No drift for full 10 sec Left leg drift: No drift for full 10 sec Right leg drift: No drift for full 10 sec Limb ataxia: Absent Sensory on face/arms/legs: Normal, no sensory loss Best language: No aphasia, normal Dysarthria: Normal Extinction or inattention: No abnormality Total NIH Stroke scale score: 0 Course Orders Ordered: ED Orders 01/15/20 12:23 EKG-12 Lead Stat 01/15/20 12:35 CT head/brain wo con Stat 01/15/20 13:10 Basic Metabolic Panel Stat Complete Blood Count AUTO DIFF Stat Troponin I Stat Discontinued Medications Meclizine HCl (Antivert) 25 mg PO NOW ONE Stop: 01/15/20 14:00 Last Admin: 01/15/20 14:14 Dose: 25 mg Documented by: ZENY Vital Signs Vital signs: Vital Signs - 8 hr 01/15/20 12:22 Temperature 98.3 F Pulse Rate 62 Respiratory Rate 18 Blood Pressure 178/78 H Pulse Oximetry 100 Medical Decision Making Lab Data Lab results reviewed: Yes I reviewed the patient's lab results. Result diagrams: 01/15/20 13:10 01/15/20 13:10 Labs: Lab Results 01/15/20 01/15/20 Range/Units 13:10 13:10 WBC 8.4 (4.5-11.0) X10^3/uL RBC 3.71 L (4.0-5.2) X10^6/uL Hgb 12.2 (12.0-16.0) g/dL Hct 35.5 L (36-46) % MCV 95.7 (80-100) fL MCH 32.9 (26-34) PG MCHC 34.4 (30-36) % RDW 13.4 (11.6-14.8) % Plt Count 260 (150-400) X10^3/uL Neut % (Auto) 65.8 (50-75) % Lymph % (Auto) 23.0 L (25-40) % Cottle % (Auto) 8.7 (3-14) % Eos % (Auto) 1.8 L (2-4) % Baso % (Auto) 0.7 (0-2) % Neut # (Auto) 5500 (3262-3462) /uL Lymph # (Auto) 1900 (0975-7598) /uL Cottle # (Auto) 700 (0-900) /uL Eos # (Auto) 200 (0-450) /uL Baso # (Auto) 100 (0-100) /uL Sodium 137 (137-145) mmol/L Potassium 4.1 (3.4-5.1) mmol/L Chloride 104 (98-107) mmol/L Carbon Dioxide 24 (22-32) mmol/L BUN 15 (7-17) mg/dL Creatinine 0.90 (0.52-1.04) mg/dL Estimated GFR > 60.0 (>60) mL/min BUN/Creatinine Ratio 16.7 (6-22) Glucose 104 (80-110) mg/dL Calcium 9.1 (8.4-10.2) mg/dL Troponin I < 0.012 (0.01-0.034) ng/mL Imaging Data CT scan - head: Radiologist's Impression: [place] [address] CT Scan Report Signed Patient: Monica Blanchard R#: [id number] : 1940cct:[id number] Age/Sex: 79 / FDate of Service: 01/15/20 Loc: ED Accession Number: [id number] Procedure: CT head/brain wo con Ordering Provider: Max Sharp D.O. PROCEDURE: CT HEAD/BRAIN WO CON INDICATIONS: Dizziness on Eliquis TECHNIQUE: Noncontrast 4.5 mm thick angled axial sections acquired from the foramen magnum to the vertex, with coronal and sagittal reformats. For radiation dose reduction, the following was used: automated exposure control, adjustment of mA and/or kV according to patient size. COMPARISON: None. FINDINGS: Image quality: Excellent. CSF spaces: Basal cisterns are patent. No extra-axial fluid collections. Ventricles are normal in size and shape. Brain: No midline shift. No intracranial masses or hemorrhage. Young-white matter interface is normal. Skull and face: Calvarium and visualized facial bones are intact, without suspicious lesions. Sinuses: Visualized sinuses and mastoids are clear. IMPRESSION: No acute intracranial hemorrhage. Dictated by: Waylon Mckinney M.D. on 01/15/2020 at 11:59 Approved by: Waylon Mckinney M.D. on 01/15/2020 at 12:00 ECG Data Attestation: I personally reviewed and interpreted this ECG as follows: Prior ECG tracings: not available for review Interpretation: Sinus rhythm Ventricular rate 62 Normal axis Normal QRS Normal QTC No ST T wave changes MDM Narrative Medical decision making narrative: Workup here in the emergency department unremarkable. She has a nonfocal neurologic exam. All of her symptoms are subjective. After observation here in the emergency department we did attempt to ambulate her and she did feel somewhat unsteady on her feet. Even though she was not specifically describing vertigo I felt that attempting meclizine to see if this did not help her symptoms is not unreasonable. She was given meclizine and something to drink. After continued observation she did feel much better. Was able to ambulate with minimal/no assistance. She reported that her symptoms seem to be improving. Do not know whether was the meclizine or just more time with us that made her symptoms better. I do feel that her symptoms are most likely related to the CBD oil that she took at home. Did inform her that she did need to talk with her primary provider about a follow-up. She was given return precautions and follow-up instructions. She expressed understanding and agreement. Discharge Plan Departure Patient Disposition: Home Clinical Impression: Lightheadedness Instructions: DI for Dizziness-Nonvertigo Activity Restrictions/Additional Instructions: Be sure to increase your fluid intake. Be careful with changing positions to include going from lying to sitting and sitting to standing. Contact your primary provider for follow-up. Continue all of your medications as directed. Return to the emergency department for any new or worsening symptoms Prescriptions: No Action clonidine HCl [Catapres] 0.3 MG tablet 0.3 mg PO DAILY Qty: 0 RF: 0 Fluticasone Propionate (FLONASE) 2 spray Intranasal BEDTIME Qty: 0 RF: 0 citalopram [Celexa] 20 MG tablet 30 mg PO DAILY Qty: 0 RF: 0 multivitamin Capsule 1 cap PO DAILY Qty: 0 RF: 0 GLUCOSAMINE HCL/CHONDR HENRY A NA (Glucosamine-Chondroitin Caplet) 1 tab PO BID Qty: 0 RF: 0 cholecalciferol (vitamin D3) [Vitamin D3] 2,000 unit Capsule 5,000 unit PO DAILY Qty: 0 RF: 0 meloxicam [Mobic] 7.5 mg tablet 15 mg PO DAILY Qty: 0 RF: 0 estradiol 10 mcg insert, dose pack 10 mcg VAG 2XW RF: 0 cetirizine [Aller-Elsy] 10 mg Tablet 10 mg PO BID RF: 0 aspirin 325 mg Tablet 325 mg PO DAILY RF: 0 acetaminophen 500 mg Tablet 500 mg PO BID RF: 0 metoprolol succinate 25 mg Tablet Extended Release 24 Hr 25 mg PO BID RF: 0 nystatin-triamcinolone 100,000-0.1 unit/gram-% ointment 1 applictn TOPICAL BID PRN (Reason: as directed) RF: 0 docusate sodium [DOK] 100 mg Capsule 100 mg PO BID Qty: 60 RF: 0 flecainide 50 mg tablet 50 mg PO BID RF: 0 Eliquis 5 mg tablet 5 mg PO BID Qty: 60 RF: 2 diltiazem HCl 120 mg capsule,extended release 24hr 120 mg PO BID RF: 0 albuterol sulfate 90 mcg/actuation HFA aerosol inhaler 2 puff INHALATION Q4-6H PRN (Reason: Wheezing) RF: 0 celecoxib 100 mg capsule 100 mg PO BID RF: 0 omeprazole 20 mg capsule,delayed release(DR/EC) 20 mg PO QAM RF: 0 Referrals: Danelle Gonzalez MD [Primary Care Provider] -
--- NOTE | 2020-01-15 12:35 | DI.CT.S_ITS ---
PROCEDURE: CT HEAD/BRAIN WO CON INDICATIONS: Dizziness on Eliquis TECHNIQUE: Noncontrast 4.5 mm thick angled axial sections acquired from the foramen magnum to the vertex, with coronal and sagittal reformats. For radiation dose reduction, the following was used: automated exposure control, adjustment of mA and/or kV according to patient size. COMPARISON: None. FINDINGS: Image quality: Excellent. CSF spaces: Basal cisterns are patent. No extra-axial fluid collections. Ventricles are normal in size and shape. Brain: No midline shift. No intracranial masses or hemorrhage. Young-white matter interface is normal. Skull and face: Calvarium and visualized facial bones are intact, without suspicious lesions. Sinuses: Visualized sinuses and mastoids are clear. IMPRESSION: No acute intracranial hemorrhage. Dictated by: Waylon Mckinney M.D. on 01/15/2020 at 11:59 Approved by: Waylon Mckinney M.D. on 01/15/2020 at 12:00
[2020-01-15 13:17] LABS: Add Manual Diff / Slide Review NO; Basophils Absolute Auto 100 /uL (0-100); Basophils Percent Auto 0.7 % (0-2); Eosinophils Absolute Auto 200 /uL (0-450); Eosinophils Percent Auto 1.8 % (2-4); Hematocrit 35.5 % (36-46); Hemoglobin 12.2 g/dL (12.0-16.0); Lymphocytes Absolute Auto 1900 /uL (1100-4500); Mean Corpuscular HGB Conc 34.4 % (30-36); Mean Corpuscular Hemoglobin 32.9 PG (26-34); Mean Corpuscular Volume 95.7 fL (80-100); Monocytes Absolute Auto 700 /uL (0-900); Monocytes Percent Auto 8.7 % (3-14); Neutrophils Absolute Auto 5500 /uL (1500-7000); Neutrophils Percent Auto 65.8 % (50-75); Platelet Count 260 X10^3/uL (150-400); Red Blood Cell Count 3.71 X10^6/uL (4.0-5.2); Red Cell Distribution Width 13.4 % (11.6-14.8); White Blood Cell Count 8.4 X10^3/uL (4.5-11.0)
[2020-01-15 13:29] LABS: BUN Creatinine Ratio 16.7 (6-22); Blood Urea Nitrogen 15 mg/dL (7-17); Calcium 9.1 mg/dL (8.4-10.2); Carbon Dioxide 24 mmol/L (22-32); Chloride 104 mmol/L (98-107); Estimated Glomerular Filt Rate > 60.0 mL/min (>60); Glucose 104 mg/dL (80-110); HEMOLYSIS < 15 (0-50); Potassium 4.1 mmol/L (3.4-5.1); Sodium 137 mmol/L (137-145)
[2020-01-15 13:42] LABS: Troponin I < 0.012 ng/mL (0.01-0.034)
[2020-01-15] MEDS: MECLIZINE HCL 12.5 MG TABLET 25 MG PO (14:14)
[2020-01-15 15:22] VITALS: BP 152/75; PULSE 78; RESP 16; O2SAT 97
== END 2020-01-15 15:24 | disposition home or self-care (01) ==
PROVIDERS: Emergency Provider Emergency Medicine; PCP Family Medicine
DX: R42 Dizziness and giddiness (principal); H53.8 Other visual disturbances
CPT/HCPCS: 36415; 70450; 80048; 84484; 85025; 93005; 93010; 99284

== ENCOUNTER → 2020-07-09 11:41 | Outpatient (CLI) | payer MEDICARE, SELFPAY ==
--- NOTE | 2020-07-09 12:10 | DI.MG.S_ITS ---
Patient Name: AP ZAVALA date: 1940 Sex: F Attending Physician: Lisa Indications: Date: 07/09/2020 12:35 At the request of: TORITO MCWILLIAMS Procedure: MM screening mammo BI BILATERAL DIGITAL SCREENING MAMMOGRAM 3D/2D WITH CAD: 07/09/2020 CLINICAL: Routine screening. Comparison is made to exams dated: 03/28/2019 specimen, 03/28/2019 stereotactic biopsy - [facility], and 03/19/2019 mammogram - [facility]. There are scattered fibroglandular elements in both breasts. Current study was also evaluated with a Computer Aided Detection (CAD) system. There is a biopsy clip in the left breast. No significant masses, calcifications, or other findings are seen in either breast. There has been no significant interval change. IMPRESSION: NEGATIVE There is no mammographic evidence of malignancy. A 1 year screening mammogram is recommended. This exam was interpreted at Station ID: [id number]. NOTE: For mammograms, a report in lay terms will be sent to the patient. Approximately 15% of breast malignancies will not be visualized mammographically. In the management of a palpable breast mass, a negative mammogram must not discourage biopsy of a clinically suspicious lesion. Electronically Signed By: Nakul blackwell/mark:07/09/2020 15:41:13 letter sent: Normal Exam ACR BI-RADS Category 1: Negative [id number]
[2020-07-09 13:11] LABS: Alanine Aminotransferase 18 IU/L (<35); Albumin Globulin Ratio 1.6 (1.0-2.8); Alkaline Phosphatase 90 U/L (38-126); Aspartate Aminotransferase 26 IU/L (14-36); BUN Creatinine Ratio 20.5 (6-22); Bilirubin Total 0.4 mg/dL (0.2-1.3); Blood Urea Nitrogen 16 mg/dL (7-17); Calcium 9.4 mg/dL (8.4-10.2); Carbon Dioxide 28 mmol/L (22-32); Chloride 102 mmol/L (98-107); Cholesterol 182 mg/dL (140-199); Estimated Glomerular Filt Rate > 60.0 mL/min (>60); Globulin 2.5 g/dL (1.7-4.1); Glucose 101 mg/dL (80-110); HDL Cholesterol 77 mg/dL (40-60); HEMOLYSIS < 15 (0-50); LDL Cholesterol Calculated 79 mg/dL (<100); Potassium 4.5 mmol/L (3.4-5.1); Sodium 136 mmol/L (137-145); Total Protein 6.5 g/dL (6.3-8.2); Triglycerides 132 mg/dL (35-150)
== END ==
PROVIDERS: PCP Family Medicine; Referring Provider Family Medicine; Visit Provider Family Medicine
DX: Z12.31 Encounter for screening mammogram for malignant neoplasm of breast (principal); M81.0 Age-related osteoporosis without current pathological fracture; Z78.0 Asymptomatic menopausal state; E78.5 Hyperlipidemia, unspecified; Z82.62 Family history of osteoporosis; Z87.891 Personal history of nicotine dependence
CPT/HCPCS: 36415; 77063; 77067; 77080; 80053; 80061

== ENCOUNTER → 2020-11-18 16:04 | Outpatient (CLI) | payer MEDICARE, SELFPAY ==
--- NOTE | 2020-11-18 16:08 | DI.RAD.S_ITS ---
PROCEDURE: XR CHEST 2V INDICATIONS: Pruritis TECHNIQUE: 2 views of the chest were acquired. COMPARISON: [facility], CR, XR CHEST 1V, 09/03/2019, 22:58. FINDINGS: Surgical changes and devices: Left shoulder arthroplasty. Lungs and pleura: Lungs are clear. No pleural effusions or pneumothorax. Mediastinum: Mediastinal contours are normal. Heart size is normal. Bones and chest wall: Severe right shoulder joint degeneration. IMPRESSION: No acute disease. Dictated by: Paresh Bronson M.D. on 11/18/2020 at 16:59 Approved by: Paresh Brnoson M.D. on 11/18/2020 at 17:00
== END ==
PROVIDERS: PCP Family Medicine; Referring Provider Family Medicine; Visit Provider Family Medicine
DX: L29.9 Pruritus, unspecified (principal); M19.011 Primary osteoarthritis, right shoulder; Z96.612 Presence of left artificial shoulder joint
CPT/HCPCS: 71046

== ENCOUNTER → 2020-12-08 10:41 | Outpatient (CLI) | payer MEDICARE, SELFPAY ==
[2020-12-08 11:32] LABS: Add Manual Diff / Slide Review NO; Basophils Absolute Auto 100 /uL (0-100); Eosinophils Absolute Auto 300 /uL (0-450); Eosinophils Percent Auto 4.1 % (2-4); Hemoglobin 10.7 g/dL (12.0-16.0); Lymphocytes Absolute Auto 2200 /uL (1100-4500); Lymphocytes Percent Auto 27.2 % (25-40); Mean Corpuscular HGB Conc 32.3 % (30-36); Mean Corpuscular Hemoglobin 29.3 PG (26-34); Mean Corpuscular Volume 90.7 fL (80-100); Monocytes Absolute Auto 700 /uL (0-900); Monocytes Percent Auto 8.7 % (3-14); Neutrophils Absolute Auto 4800 /uL (1500-7000); Platelet Count 270 X10^3/uL (150-400); Red Blood Cell Count 3.64 X10^6/uL (4.0-5.2); Red Cell Distribution Width 14.3 % (11.6-14.8); White Blood Cell Count 8.2 X10^3/uL (4.5-11.0)
== END ==
PROVIDERS: PCP Family Medicine; Referring Provider Allergy & Immunology; Visit Provider Allergy & Immunology
DX: L29.9 Pruritus, unspecified (principal)
CPT/HCPCS: 36415; 83520; 85025

== ENCOUNTER → 2021-03-09 11:40 | Outpatient (CLI) | payer MEDICARE, SELFPAY | PROVIDERS: PCP Family Medicine; Referring Provider Family Medicine; Visit Provider Family Medicine | DX: R25.9 Unspecified abnormal involuntary movements (principal); R25.3 Fasciculation; L25.9 Unspecified contact dermatitis, unspecified cause; Z53.8 Procedure and treatment not carried out for other reasons ==

== ENCOUNTER → 2021-03-10 19:40 | Outpatient (CLI) | payer MEDICARE, SELFPAY ==
--- NOTE | 2021-03-10 19:41 | DI.MRI.S_ITS ---
PROCEDURE: MR HEAD/BRAIN WO/W CON INDICATIONS: UNSPECIFIED ABNORMAL INVOLUNTARY MOVEMENTS TECHNIQUE: Noncontrast axial T1 spin echo, axial T2 fast spin echo, sagittal and axial FLAIR, coronal T2 fast spin echo, axial gradient echo, axial diffusion and ADC through the brain. After the administration of contrast, axial and coronal 3D VIBE or T1 spin echo with fat saturation through the brain. COMPARISON: None. FINDINGS: Image quality: Excellent. CSF Spaces: Basal cisterns are patent. No extra-axial fluid collections. Ventricles are normal in size and shape. Brain: No midline shift. No intracranial bleeds or masses. There is mild, diffuse cerebral volume loss. There are mild periventricular and subcortical white matter chronic microvascular ischemic changes. No abnormal intracranial enhancement. The brainstem appears normal. Diffusion-weighted images demonstrate no acute ischemic insults. No chronic ischemic insults. Normal intravascular flow voids are present. Dural sinuses demonstrate normal postcontrast enhancement. Skull and face: Calvarial marrow is normal in signal. Orbits appear normal. Sinuses: Sinuses and mastoids appear clear. IMPRESSION: 1. No acute intracranial disease process. 2. No areas of acute or chronic infarction. 3. No abnormal intracranial mass or mass effect. 4. No suspicious postcontrast enhancement. Dictated by: Mable Lee MD, PhD on 03/11/2021 at 9:37 Approved by: Mable Lee MD, PhD on 03/11/2021 at 9:41
== END ==
PROVIDERS: PCP Family Medicine; Referring Provider Family Medicine; Visit Provider Family Medicine
DX: R25.9 Unspecified abnormal involuntary movements (principal); R25.3 Fasciculation; L25.9 Unspecified contact dermatitis, unspecified cause
CPT/HCPCS: 70553; A9579

== ENCOUNTER → 2021-04-16 12:03 | Outpatient (CLI) | payer MEDICARE, SELFPAY ==
--- NOTE | 2021-04-16 | DI.CT.S_ITS ---
PROCEDURE: CT CHEST ABD PEL W CON INDICATIONS: Fasciculation TECHNIQUE: After the administration of oral and intravenous contrast, axial sections acquired from the supraclavicular neck to the pubic symphysis. Coronal and sagittal reformats were performed. For radiation dose reduction, the following was used: automated exposure control, adjustment of mA and/or kV according to patient size. COMPARISON:[facility], CT, CT CHEST WO CON, 02/07/2019, 13:13. FINDINGS: Image quality: Excellent. CHEST: Lower Neck: No enlarged lymph nodes. Thyroid: There is a large benign calcification in the left lobe of the thyroid. Sub-cm right thyroid nodules. Axillae: No enlarged lymph nodes. Chest Wall: Remote total left shoulder arthroplasty. Advanced arthritic change involving the right glenohumeral joint with large shoulder joint effusion. Lungs and Airways: No consolidation or suspicious nodules. Stable small pulmonary nodules, right lower lobe, benign. No new or increasing pulmonary nodules. No acute focal infiltrates. Pleura: No pneumothorax or pleural effusions. Heart: MILD LEFT ATRIAL ENLARGEMENT. No pericardial effusion. Thoracic Vessels: The aorta and pulmonary arteries demonstrate normal size. Mediastinum and Loren: No enlarged lymph nodes. Esophagus: No wall thickening. No hiatal hernia. ABDOMEN: Liver: Unremarkable. Gallbladder: Unremarkable. Biliary ducts: Unremarkable. Pancreas: Unremarkable. Spleen: Unremarkable. Adrenal Glands: Unremarkable. Kidneys and Ureters: Unremarkable. Stomach and Bowel: Stomach, small bowel loops, and colon are normal in caliber. Sigmoid diverticulosis without evidence of diverticulitis. Normal appendix. Peritoneum: No abnormal intraperitoneal fluid. No free air. No abscess cavity. Ventral Wall: No hernia. Abdominal Nodes: No retroperitoneal or mesenteric adenopathy by size criteria. Vessels: Aorta and inferior vena cava are normal in size. PELVIS: Pelvic Organs: Unremarkable. Pessary. Bladder: Unremarkable. Pelvic Nodes: No enlarged lymph nodes. Miscellaneous: No inguinal hernias are seen. Bones: Lumbar degenerative change. Canal stenosis at L3-L4. IMPRESSION: 1. Stable right pulmonary nodules, consistent with benign pulmonary nodules. No evidence of acute pulmonary process. 2. Mild left atrial enlargement. 3. Sigmoid diverticulosis. 4. No evidence of acute abdominal process. 5. Degenerative change in the lumbar spine with canal stenosis at L3-L4. Dictated by: Deejay Samayoa M.D. on 04/16/2021 at 15:05 Approved by: Deejay Samayoa M.D. on 04/16/2021 at 15:14
== END ==
PROVIDERS: PCP Family Medicine; Referring Provider Family Medicine; Visit Provider Family Medicine
DX: R25.3 Fasciculation (principal)
CPT/HCPCS: 71260; 74177; Q9967

== ENCOUNTER → 2021-09-20 13:36 | Outpatient (CLI) | payer MEDICARE, SELFPAY ==
[2021-09-20 15:04] LABS: COVID19 -Nasal RAPID Negative (Negative)
== END ==
PROVIDERS: PCP Family Medicine; Visit Provider Surgery
DX: Z01.812 Encounter for preprocedural laboratory examination (principal); D50.9 Iron deficiency anemia, unspecified; Z20.822 Contact with and (suspected) exposure to COVID-19
CPT/HCPCS: 87635; 99214

== ENCOUNTER → 2021-09-30 16:42 | Outpatient (CLI) | payer MEDICARE, SELFPAY ==
--- NOTE | 2021-09-30 16:48 | DI.RAD.S_ITS ---
PROCEDURE: XR CHEST 2V INDICATIONS: COUGH/EDEMA TECHNIQUE: 2 views of the chest were acquired. COMPARISON: [facility], CT, CT CHEST ABD PEL W CON, 04/16/2021, 13:02. [facility], CR, XR CHEST 2V, 11/18/2020, 17:13. [facility], CR, XR CHEST 1V, 09/03/2019, 22:58. FINDINGS: Surgical changes and devices: None. Lungs and pleura: Lungs are clear. No pleural effusions or pneumothorax. Mediastinum: Mediastinal contours are unchanged. Heart size appears prominent. Bones and chest wall: No suspicious bony abnormalities. Left shoulder arthroplasty. Soft tissues appear unremarkable. IMPRESSION: Minimal pulmonary vasculature engorgement. Dictated by: Kilo Fallon M.D. on 10/01/2021 at 7:48 Approved by: Kilo Fallon M.D. on 10/01/2021 at 7:50
[2021-09-30 17:53] LABS: Alanine Aminotransferase 21 IU/L (<35); Albumin 4.4 g/dL (3.5-5.0); Albumin Globulin Ratio 1.6 (1.0-2.8); Alkaline Phosphatase 87 U/L (38-126); Aspartate Aminotransferase 27 IU/L (14-36); Bilirubin Total 0.3 mg/dL (0.2-1.3); Blood Urea Nitrogen 17 mg/dL (7-17); Calcium 9.4 mg/dL (8.4-10.2); Carbon Dioxide 27 mmol/L (22-32); Chloride 104 mmol/L (98-107); Estimated Glomerular Filt Rate > 60.0 mL/min (>60); Globulin 2.8 g/dL (1.7-4.1); Glucose 93 mg/dL (80-110); HEMOLYSIS < 15 (0-50); Magnesium 2.2 mg/dL (1.6-2.3); Potassium 4.4 mmol/L (3.4-5.1); Sodium 138 mmol/L (137-145); Total Protein 7.2 g/dL (6.3-8.2)
[2021-09-30 18:00] LABS: NT-proBNP (BNP-Adult 18+) 112 pg/mL (<450)
[2021-09-30 18:21] LABS: TSH w/ Reflex to FT4 2.77 uIU/mL (0.47-4.68)
== END ==
PROVIDERS: PCP Family Medicine; Referring Provider Family Medicine; Visit Provider Family Medicine
DX: R60.9 Edema, unspecified (principal); G47.33 Obstructive sleep apnea (adult) (pediatric); I48.91 Unspecified atrial fibrillation; G25.81 Restless legs syndrome
CPT/HCPCS: 36415; 71046; 80053; 83735; 83880; 84443

== ENCOUNTER 2021-10-11 09:43 | Day surgery (SDC) | payer MEDICARE, SELFPAY ==
[2021-10-11] VITALS (12 sets, daily range): BP systolic 117–145; BP diastolic 44–81; PULSE 48–66; RESP 12–20; TEMP 36.3–36.6; O2SAT 91–98; BMI 32.8
--- NOTE | 2021-10-11 | PATH_ITS ---
[facility] Accession Number: [id number] . 01 Material submitted: . esophagus, E-G Junction - GE JUNCTION MASS . 02 Diagnosis: Gastroesophageal Junction, Mass, Biopsies: Invasive adenocarcinoma, at least intramucosal, undermining squamous epithelium. Focal intestinal metaplasia present, confirmed by alcian blue stain. Negative for Her2 overexpression, by immunohistochemistry (Score 1+). Please see comment. MRV 10/18/2021 1424 Local . 02 Comment: Additional deeper levels were examined. As part of routine quality consultant, this case was also reviewed by Dr. Oconnell and Dr. Wheatley, who agree with the diagnosis. Dr. Torres discussed results with Dr. Herrera on . . 02 Electronically signed: . Lashanda Torres MD, Pathologist NPI- [id number] . 01 Gross description: . GE JUNCTION MASS: Received in formalin is 1 fragment(s) of mayfield, soft tissue measuring 0.4 x 0.3 x 0.2 cm submitted entirely in 1 cassette(s) /B 10/12/2021 0414 Local . 02 Microscopic: . An alcian blue stain was performed to evaluate for intestinal metaplasia and is focally positive for goblet cells. The control stain showed appropriate reactivity. . Gastric HER2 Biomarker Testing: . RESULTS: HER2 by immunohistochemistry (4B5): Negative (Score 1+) . COMMENT: Testing performed on Block Number: A1 The criteria used is based on the ToGA Trial 6 for Scoring HER2 Expression by Immunohistochemistry (IHC) in Gastric and Esophagogastric Junction Adenocarcinoma. . *This test was developed and its performance characteristics determined by [employer]. It has not been cleared or approved by the U.S. Food and Drug Administration. The FDA has determined that such clearance or approval is not necessary. This test is used for clinical purposes. It should not be regarded as investigational or for research. . 02 Pathologist provided ICD-10: D64.9, C15.8 . 02 CPT . 264340, 522680, 766386 Performed at: 01 [facility] [address] [id number] MD Nakul Mazariegos MD Phone: [phone] Performed at: 02 [facility] [id number] [place] [id number] MD Lashanda Torres MD Phone: [phone]
[2021-10-11] MEDS: LACTATED RINGERS 1,000 ML 200 ML IV (09:57)
[2021-10-11 10:58] LABS: COVID19 -Nasal RAPID Negative (Negative)
--- NOTE | 2021-10-11 11:04 | PM.PREOP ---
Pre-operative Note Interval Note History & Physical reviewed/Exam performed by Physician: Yes Changes to H&P: No
[2021-10-11] MEDS: LIDOCAINE 4% SOLN 50 ML 20 ML TOP (11:10)
[2021-10-11] MEDS: MIDAZOLAM 5 MG/5 ML VIAL IV (11:35)
[2021-10-11] MEDS: fentaNYL 250 MCG/5 ML INJ IV (11:38)
--- NOTE | 2021-10-11 11:46 | PM.OP.EC ---
Operative Date/Time/Diagnoses Date of procedure: 10/11/21 Time of procedure: 11:46 Pre-op diagnosis: Anemia Post-op diagnosis: other (GE junction mass) Procedure & Clinicians Study performed: Esophagoduodenoscopy colonoscopy Same procedure as scheduled: Yes Indications: Anemia Surgeon: Sang Herrera Procedure Notes Procedure in detail: Medications: Conscious sedation using 5mg IV midazolam and 150mcg IV of fentanyl The history and physical was performed/updated and the patient is ASA class is 2 . The procedure was discussed in detail with the patient. Potential risks complications including infection, bleeding, missed diagnosis, perforation, need for surgery, and were explained. Their questions were answered and informed consent was obtained. Patient placed in left lateral decubitus position. Time out was performed. Procedural sedation was administered with Versed and Fentanyl. A bite block was placed. the scope was inserted into the mouth and advanced through the esophagus and into the stomach. There was a mass at the GE junction 38 cm from the incisors of approximately 2 cm which was ulcerated. Biopsy of the mass was attempted with snare however this was unsuccessful and we switched to biopsy forceps. The mass was not obstructing. The pylorus was intubated and the duodenum was normal to the 2nd portion. The scope was retroflexed within the stomach and there was a hiatal hernia. No gastric ulcers. The scope was withdrawn into the esophagus. The mass appeared to be originating from the stomach there was no masses observed. The stomach was desufflated and scope removed. Patient tolerated procedure well. Examination began with a thorough inspection of the perianal area there was no evidence of fissures, fistulae, external hemorrhoids or cutaneous malignancy. The colonoscopy scope was then placed into the anal canal and was advanced to the cecum, which was identified by the ileocecal valve, the appendiceal orifice and the confluence of the taenia. The scope was then slowly withdrawn examining colon thoroughly in all directions, irrigating it of any residual stool. FINDINGS 1. GE junction mass 2. Sigmoid diverticulosis The patient tolerated the procedure well. They will be discharged once criteria are met. The prep was of good/excellent quality. The withdrawl time was 7 minutes. The sedation time was 30 minutes. Specimen(s): other (GE junction mass) Complications: none Impression: GE junction mass Post-procedure Plan for aftercare: follow up in office 2 weeks for pathology start omeprazole today Disposition: same day surgery
[2021-10-11] MEDS: ALBUTEROL 2.5 MG/3 ML NEB (ADULT) INH (13:10)
--- NOTE | 2021-10-11 13:15 | SUR.PHASEI ---
1315 hrs: Pt stridorous breathing, expiratory wheezes, and crackles bilateral bases continues s/p albuterol nebulizer.
--- NOTE | 2021-10-11 14:26 | SUR.PHASEII ---
1404 Pt discharged to home with daughter after being updated by Dr Herrera at the bedside. Pt steady of feet. Shey SOB. Received Albuterol neb in PACU.
== END 2021-10-11 14:04 | disposition home or self-care (01) ==
PROVIDERS: PCP Family Medicine; Referring Provider Surgery; Visit Provider Surgery
PROC: 0DJ08ZZ Inspection of Upper Intestinal Tract, Via Natural or Artificial Opening Endoscopic (ICD-10-PCS; CPT 43235; principal; 2021-10-11 10:45)
PROC: 0DJD8ZZ Inspection of Lower Intestinal Tract, Via Natural or Artificial Opening Endoscopic (ICD-10-PCS; CPT 45378; 2021-10-11 10:45)
DX: C15.8 Malignant neoplasm of overlapping sites of esophagus (principal); D50.9 Iron deficiency anemia, unspecified; Z20.822 Contact with and (suspected) exposure to COVID-19; K57.30 Diverticulosis of large intestine without perforation or abscess without bleeding; K44.9 Diaphragmatic hernia without obstruction or gangrene
CPT/HCPCS: 43239; 45378; 87635; 99152; 99153; J2250; J3010; J7613

== ENCOUNTER 2021-10-16 16:07 | Emergency (ER) | payer MEDICARE, SELFPAY ==
[2021-10-16] VITALS (19 sets, daily range): BP systolic 141–177; BP diastolic 65–113; PULSE 57–70; RESP 12–34; TEMP 37.2; O2SAT 92–99
--- NOTE | 2021-10-16 16:32 | DI.RAD.S_ITS ---
PROCEDURE: XR CHEST 1V INDICATIONS: suspected sepsis TECHNIQUE: One view of the chest was acquired. COMPARISON: [facility], CR, XR CHEST 2V, 09/30/2021, 16:46. FINDINGS: Surgical changes and devices: Left shoulder prosthesis is partially visualized. Lungs and pleura: There is hyperinflation of the lungs with flattening of the hemidiaphragms compatible with COPD. No acute consolidation. No pleural effusions or pneumothorax. Mediastinum: Mediastinal contours appear normal. Heart size is normal. Bones and chest wall: No suspicious bony lesions. Overlying soft tissues appear unremarkable. IMPRESSION: 1. No definite acute cardiopulmonary disease. 2. Findings compatible with COPD redemonstrated. Dictated by: Nakul Hall M.D. on 10/16/2021 at 16:19 Approved by: Nakul Hall M.D. on 10/16/2021 at 16:21
--- NOTE | 2021-10-16 16:40 | DI.CT.S_ITS ---
PROCEDURE: CT HEAD/BRAIN WO CON INDICATIONS: Confusion. TECHNIQUE: Noncontrast 4.5 mm thick angled axial sections acquired from the foramen magnum to the vertex, with coronal and sagittal reformats. For radiation dose reduction, the following was used: automated exposure control, adjustment of mA and/or kV according to patient size. COMPARISON: [facility], MR, MR HEAD/BRAIN WO/W CON, 03/10/2021, 19:53. [facility], CT, CT HEAD/BRAIN WO CON, 01/15/2020, 12:45. FINDINGS: Image quality: Excellent. CSF spaces: Basal cisterns are patent. No extra-axial fluid collections. The ventricles are symmetric in size and shape. There is mild cerebral volume loss, with resultant ventricular and sulcal prominence. Brain: No intracranial hemorrhage, mass, or mass effect. There are subcortical, periventricular and deep white matter hypodensities consistent with mild chronic small vessel ischemic changes. The crystal-white matter junction appears preserved. There is intracranial internal carotid artery atherosclerosis. Skull and face: Calvarium and visualized facial bones appear intact, without suspicious lesions. Sinuses: Visualized sinuses and mastoids are clear. IMPRESSION: 1. No acute intracranial abnormality. 2. Mild chronic white matter small vessel ischemic changes and cerebral volume loss. Dictated by: Nakul Hall M.D. on 10/16/2021 at 16:00 Approved by: Nakul aHll M.D. on 10/16/2021 at 16:01
[2021-10-16 17:01] LABS: Add Manual Diff / Slide Review NO; Basophils Absolute Auto 100 /uL (0-100); Basophils Percent Auto 1.4 % (0-2); Eosinophils Absolute Auto 400 /uL (0-450); Eosinophils Percent Auto 4.9 % (2-4); Hematocrit 34.7 % (36-46); Hemoglobin 11.7 g/dL (12.0-16.0); Lymphocytes Absolute Auto 1900 /uL (1100-4500); Lymphocytes Percent Auto 21.6 % (25-40); Mean Corpuscular HGB Conc 33.7 % (30-36); Mean Corpuscular Hemoglobin 31.7 PG (26-34); Mean Corpuscular Volume 94.1 fL (80-100); Monocytes Absolute Auto 700 /uL (0-900); Monocytes Percent Auto 8.5 % (3-14); Neutrophils Absolute Auto 5500 /uL (1500-7000); Neutrophils Percent Auto 63.6 % (50-75); Platelet Count 248 X10^3/uL (150-400); Red Blood Cell Count 3.68 X10^6/uL (4.0-5.2); Red Cell Distribution Width 14.9 % (11.6-14.8); White Blood Cell Count 8.7 X10^3/uL (4.5-11.0)
[2021-10-16 17:07] LABS: INR 1.2 (0.9-1.3); Prothrombin Time 13.5 SECONDS (10.1-12.7)
--- NOTE | 2021-10-16 17:07 | ED_ITS ---
HPI - SOB/Dyspnea General Chief Complaint: Shortness of Breath/Dyspnea Stated Complaint: fever, 'delay with brain', dyspnea Time Seen by Provider: 10/16/21 17:06 Source: patient and EMS Mode of arrival: EMS History of Present Illness HPI Narrative: 81-year-old female former smoker with history of sleep apnea, iron deficiency anemia, fatigue, hypertension, AFib on Eliquis presents with a chief complaint of gradually worsening exertional dyspnea over the past few months. She states it has been gradually worsening and she was seen by her primary care provider just a few days ago for this. She has been taking her medications as directed and just had her Lasix and double. She states that she has a 40 lb weight gain over that time frame. She become short of breath with exertion also with lying flat. She has frequent dry hacking cough. She denies any hemoptysis or frothy sputum. She denies recent travel or history of blood clot. She denies abdominal pain, nausea or vomiting. She denies any dysuria, frequency or urgency but does admit to a low-grade fever earlier today. Related Data Home Medications Medication Instructions Recorded Confirmed estradiol 10 mcg vaginal insert, 10 mcg VAG 2XW 10/17/18 10/11/21 in a starter dose pack nystatin-triamcinolone 100,000 1 applictn TOPICAL BID PRN 07/18/19 10/11/21 unit/gram-0.1 % topical ointment albuterol sulfate 90 mcg/actuation 2 puff INHALATION Q4-6H PRN 01/15/20 10/11/21 aerosol inhaler diltiazem HCl 120 mg 120 mg PO BID 01/15/20 10/11/21 capsule,extended release 24 hr acetaminophen 650 mg 650 mg PO Q12H 08/19/21 10/11/21 tablet,extended release citalopram 20 mg tablet (Celexa) 10 mg PO DAILY #0 tab 08/19/21 10/11/21 flecainide 50 mg tablet 100 mg PO BID tab 08/19/21 10/11/21 gabapentin 300 mg capsule 300 mg PO TID 08/19/21 10/11/21 ferrous sulfate 324 mg (65 mg 324 mg PO BID 09/20/21 10/11/21 iron) tablet,delayed release pramipexole 0.25 mg tablet 0.25 mg PO BEDTIME 09/21/21 10/11/21 pramipexole 0.5 mg tablet 1 mg PO DAILY 09/21/21 10/11/21 Previous Rx's Medication Instructions Recorded apixaban 5 mg tablet (Eliquis) 5 mg PO BID #60 tab 09/05/19 omeprazole 20 mg capsule,delayed See Rx Instructions .ROUTE 10/14/21 release .COMPLEX #180 capsule prednisone 20 mg tablet 20 mg PO DAILY #5 tab 10/16/21 Allergies Allergy/AdvReac Type Severity Reaction Status Date / Time adhesive tape Allergy Severe Rash, Verified 10/16/21 20:27 blister with a clear type of dressing tape codeine [CODEINE] Allergy Severe Rash Verified 10/16/21 20:27 tetanus toxoid, adsorbed Allergy Severe Rash, Verified 10/16/21 20:27 Itch, joint pain thimerosal [THIMEROSAL] Allergy Severe Rash, Verified 10/16/21 20:27 Itch, joint pain metoprolol Allergy Verified 10/16/21 20:27 Review of Systems Review of Systems Narrative: GENERAL: Denies chills, fatigue, malaise, fever, sweats. HEENT: Denies sinus pain, ear pain, sore throat, difficulty swallowing, dizziness. RESPIRATORY: See HPI CARDIOVASCULAR: Denies chest pain, palpitations, orthopnea, edema, GASTROINTESTINAL: Denies nausea, vomiting, abdominal pain, diarrhea, constipa tion, melena. : Denies dysuria, frequency, incontinence, hematuria, urinary retention. MUSCULOSKELETAL: denies weakness, joint pain, or bony pain SKIN: Denies rash, skin lesions, or other NEUROLOGIC: Denies weakness, headache, numbness, change in speech, confusion, seizures, incoordination. PSYCHIATRIC: No concerning psychosocial issues. 12 point review of systems is negative except for those stated above Patient History Medical History Chronic iron deficiency anemia Chronic neck and back pain Depression DJD (degenerative joint disease), multiple sites Dyspnea on minimal exertion Easy bruisability Fatigue due to sleep pattern disturbance Former smoker Hearing impairment Heart murmur HTN (hypertension) Insomnia due to medical condition Nocturnal hypoxemia Obstructive sleep apnea, adult Paroxysmal A-fib (07/09/19) Pneumonia Restless legs syndrome (RLS) Skin cancer of face Tingling Wheezing Surgical History History of arthroplasty of left knee (~2016) History of arthroplasty of right knee History of total replacement of left shoulder joint Hx of bilateral cataract extraction Hx of dilation and curettage Hx of left breast biopsy Hx of repair of left rotator cuff (~2001) Hx of tonsillectomy Hx of tubal ligation Social History marital status: details: lives in [place] household members: spouse lives independently: Yes caregiver/support person: No Smoking Status: Former smoker alcohol intake: former Smoking Status: Former smoker alcohol intake frequency: holidays/special occasions only Substance Use Type: does not use Exam Narrative Exam Narrative: GENERAL: [81] year old patient appears stated age. Well-developed patient, in mild distress. HEAD: Atraumatic. Normocephalic. EYES: Pupils equal round and reactive. Extraocular motions intact. No scleral icterus. No injection or drainage. ENT: Nose without bleeding, purulent drainage. Throat without erythema, tonsillar hypertrophy or exudate. Airway patent. NECK: Trachea midline. Non tender CARDIOVASCULAR: Regular rate and rhythm without murmurs, gallops, or rubs. RESPIRATORY: No significant work of breathing, faint crackles in bilateral bases, decreased breath sounds throughout with end-expiratory wheeze. Deep breath illicits cough GASTROINTESTINAL: Abdomen soft, non-tender, nondistended. EXTREMITIES: No edema or joint tenderness. BACK: Nontender without deformity or crepitance. No flank tenderness. NEURO: AOx3. SKIN: No rash or erythema of visible areas Initial Vital Signs Initial Vital Signs: Vital Signs Temperature 98.9 F 10/16/21 16:15 Pulse Rate 58 L 10/16/21 16:15 Respiratory Rate 27 H 10/16/21 16:15 Blood Pressure 156/65 H 10/16/21 16:15 Pulse Oximetry 95 10/16/21 16:15 Course Orders Ordered: ED Orders 10/16/21 16:30 Complete Blood Count AUTO DIFF Stat Comprehensive Metabolic Panel Stat D Dimer Stat Lactate (Lactic Acid) Stat Lipase Stat NT-proBNP (BNP-Adult 18+) Stat Partial Thromboplastin Time Stat Procalcitonin Stat Prothrombin Time INR Stat Troponin & CK Cardiac Panel Stat 10/16/21 16:32 XR chest 1V Stat EKG-12 Lead Stat RT Consult Eval and Treat Now 10/16/21 16:40 CT head/brain wo con Stat 10/16/21 17:40 Blood Culture Stat 10/16/21 18:05 Respiratory Panel (Film Array) Stat Discontinued Medications Albuterol/Ipratropium (Albuterol/Ipratropium 3 Ml Ampul) 3 ml INH NOW ONE Stop: 10/16/21 19:38 Last Admin: 10/16/21 19:53 Dose: 3 ml Documented by: KEANU Vital Signs Vital signs: Vital Signs - 8 hr 10/16/21 16:15 10/16/21 16:20 10/16/21 16:22 Temperature 98.9 F Pulse Rate 58 L 60 58 L Respiratory Rate 27 H 17 Blood Pressure 156/65 H 163/70 H Pulse Oximetry 95 93 93 10/16/21 16:30 10/16/21 16:31 10/16/21 16:59 Temperature Pulse Rate 58 L 58 L 61 Respiratory Rate 18 14 18 Blood Pressure 156/65 H 156/68 H Pulse Oximetry 93 92 95 10/16/21 17:00 10/16/21 17:01 10/16/21 17:30 Temperature Pulse Rate 60 59 L 57 L Respiratory Rate 18 17 22 Blood Pressure 157/71 H Pulse Oximetry 96 94 94 10/16/21 17:31 10/16/21 18:01 10/16/21 18:30 Temperature Pulse Rate 57 L 62 58 L Respiratory Rate 28 H 23 12 Blood Pressure 152/113 H 177/72 H Pulse Oximetry 94 97 93 10/16/21 19:07 10/16/21 19:30 Temperature Pulse Rate 70 61 Respiratory Rate 34 H Blood Pressure Pulse Oximetry 97 97 MDM - SOB/Dyspnea Lab Data Result diagrams: 10/16/21 16:30 10/16/21 16:30 Labs: Lab Results 10/16/21 10/16/21 10/16/21 Range/Units 16:30 16:30 16:30 WBC 8.7 (4.5-11.0) X10^3/uL RBC 3.68 L (4.0-5.2) X10^6/uL Hgb 11.7 L (12.0-16.0) g/dL Hct 34.7 L (36-46) % MCV 94.1 (80-100) fL MCH 31.7 (26-34) PG MCHC 33.7 (30-36) % RDW 14.9 H (11.6-14.8) % Plt Count 248 (150-400) X10^3/uL Neut % (Auto) 63.6 (50-75) % Lymph % (Auto) 21.6 L (25-40) % [place] % (Auto) 8.5 (3-14) % Eos % (Auto) 4.9 H (2-4) % Baso % (Auto) 1.4 (0-2) % Neut # (Auto) 5500 (3855-1422) /uL Lymph # (Auto) 1900 (8434-7502) /uL [place] # (Auto) 700 (0-900) /uL Eos # (Auto) 400 (0-450) /uL Baso # (Auto) 100 (0-100) /uL PT 13.5 H (10.1-12.7) SECONDS INR 1.2 (0.9-1.3) APTT 32 (26.4-36.2) SECONDS D-Dimer (<230) ng/mL Sodium 135 L (137-145) mmol/L Potassium 4.0 (3.4-5.1) mmol/L Chloride 103 (98-107) mmol/L Carbon Dioxide 26 (22-32) mmol/L BUN 19 H (7-17) mg/dL Creatinine 0.81 (0.52-1.04) mg/dL Estimated GFR > 60.0 (>60) mL/min BUN/Creatinine Ratio 23.5 H (6-22) Glucose 107 (80-110) mg/dL Lactate (0.7-2.1) mmol/L Calcium 9.1 (8.4-10.2) mg/dL Total Bilirubin 0.3 (0.2-1.3) mg/dL AST 28 (14-36) IU/L ALT 26 (<35) IU/L Alkaline Phosphatase 73 (38-126) U/L Total Creatine Kinase 48 (30-135) U/L CK-MB (CK-2) TNP CK-MB (CK-2) Rel Index TNP Troponin I < 0.012 (0.01-0.034) ng/mL NT-Pro-B Natriuret Pep 120 (<450) pg/mL Total Protein 6.7 (6.3-8.2) g/dL Albumin 4.1 (3.5-5.0) g/dL Globulin 2.6 (1.7-4.1) g/dL Albumin/Globulin Ratio 1.6 (1.0-2.8) Lipase 140 (23-300) U/L Procalcitonin 0.09 (<0.5) ng/mL Chlamy pneumoniae PCR (Not Detect) Adenovirus (PCR) (Not Detect) B. pertussis DNA (PCR) (Not Detecte) B.parapertussis DNA PCR (Not Detecte) Coronavirus OC43 (PCR) (Not Detect) Coronavirus HKU1 (PCR) (Not Detect) Coronavirus 229E (PCR) (Not Detect) SARS-CoV-2 (PCR) (Not Detecte) Coronavirus NL63 (PCR) (Not Detect) Human Metapneumovir PCR (Not Detect) Influenza Type A (PCR) (Not Detect) Influenza Type B (PCR) (Not Detect) M. pneumoniae (PCR) (Not Detect) Parainfluenza 1 (PCR) (Not Detect) Parainfluenza 2 (PCR) (Not Detect) Parainfluenza 3 (PCR) (Not Detect) Parainfluenza 4 (PCR) (Not Detect) RSV (PCR) (Not Detect) Entero/Rhino (PCR) (Not Detect) 10/16/21 10/16/21 10/16/21 Range/Units 16:30 16:30 18:05 WBC (4.5-11.0) X10^3/uL RBC (4.0-5.2) X10^6/uL Hgb (12.0-16.0) g/dL Hct (36-46) % MCV (80-100) fL MCH (26-34) PG MCHC (30-36) % RDW (11.6-14.8) % Plt Count (150-400) X10^3/uL Neut % (Auto) (50-75) % Lymph % (Auto) (25-40) % [place] % (Auto) (3-14) % Eos % (Auto) (2-4) % Baso % (Auto) (0-2) % Neut # (Auto) (6795-7461) /uL Lymph # (Auto) (9166-4488) /uL [place] # (Auto) (0-900) /uL Eos # (Auto) (0-450) /uL Baso # (Auto) (0-100) /uL PT (10.1-12.7) SECONDS INR (0.9-1.3) APTT (26.4-36.2) SECONDS D-Dimer 274 H (<230) ng/mL Sodium (137-145) mmol/L Potassium (3.4-5.1) mmol/L Chloride (98-107) mmol/L Carbon Dioxide (22-32) mmol/L BUN (7-17) mg/dL Creatinine (0.52-1.04) mg/dL Estimated GFR (>60) mL/min BUN/Creatinine Ratio (6-22) Glucose (80-110) mg/dL Lactate 1.0 (0.7-2.1) mmol/L Calcium (8.4-10.2) mg/dL Total Bilirubin (0.2-1.3) mg/dL AST (14-36) IU/L ALT (<35) IU/L Alkaline Phosphatase (38-126) U/L Total Creatine Kinase (30-135) U/L CK-MB (CK-2) CK-MB (CK-2) Rel Index Troponin I (0.01-0.034) ng/mL NT-Pro-B Natriuret Pep (<450) pg/mL Total Protein (6.3-8.2) g/dL Albumin (3.5-5.0) g/dL Globulin (1.7-4.1) g/dL Albumin/Globulin Ratio (1.0-2.8) Lipase (23-300) U/L Procalcitonin (<0.5) ng/mL Chlamy pneumoniae PCR Not detected (Not Detect) Adenovirus (PCR) Not detected (Not Detect) B. pertussis DNA (PCR) Not detected (Not Detecte) B.parapertussis DNA PCR Not detected (Not Detecte) Coronavirus OC43 (PCR) Not detected (Not Detect) Coronavirus HKU1 (PCR) Not detected (Not Detect) Coronavirus 229E (PCR) Not detected (Not Detect) SARS-CoV-2 (PCR) Not detected (Not Detecte) Coronavirus NL63 (PCR) Not detected (Not Detect) Human Metapneumovir PCR Not detected (Not Detect) Influenza Type A (PCR) Not detected (Not Detect) Influenza Type B (PCR) Not detected (Not Detect) M. pneumoniae (PCR) Not detected (Not Detect) Parainfluenza 1 (PCR) Not detected (Not Detect) Parainfluenza 2 (PCR) Not detected (Not Detect) Parainfluenza 3 (PCR) Not detected (Not Detect) Parainfluenza 4 (PCR) Not detected (Not Detect) RSV (PCR) Not detected (Not Detect) Entero/Rhino (PCR) Not detected (Not Detect) Urine Dip Bedside Urine Glucose Negative Bedside Urine Bilirubin - Negative Bedside Urine Ketone - Negative Urine Specific [place] 1.025 Bedside Urine Occult Blood - Negative Bedside Urine pH 6.0 Bedside Urine Protein - Negative Bedside Urine Urobilinogen - Negative Bedside Urine Nitrite - Negative Bedside Urine Leukocytes - Negative Esterase Imaging Data Chest x-ray: Radiologist's Impression: Launch?Image [address] [address] XRay Report Signed Patient: Monica Blanchard MR#: [id number] : 1940 Acct:[id number] Age/Sex: 81 / F Date of Service: 10/16/21 Loc: Accession Number: [id number] ?? Procedure: XR chest 1V Ordering Provider: Naomy Stern D.O. PROCEDURE:? XR CHEST 1V ? INDICATIONS:? suspected sepsis ? TECHNIQUE:? One view of the chest was acquired.? ? COMPARISON:? [facility], , XR CHEST 2V, 09/30/2021, 16:46. ? FINDINGS:? ? Surgical changes and devices:? Left shoulder prosthesis is partially visualized.? ? Lungs and pleura:? There is hyperinflation of the lungs with flattening of the hemidiaphragms compatible with COPD.? No acute consolidation.? No pleural effusions or pneumothorax.? ? Mediastinum:? Mediastinal contours appear normal.? Heart size is normal.? ? Bones and chest wall:? No suspicious bony lesions.? Overlying soft tissues appear unremarkable.? ? IMPRESSION:? ? 1. No definite acute cardiopulmonary disease. ? 2. Findings compatible with COPD redemonstrated.? ? ? Dictated by: Nakul Hall M.D. on 10/16/2021 at 16:19 ? ? Approved by: Nakul Hall M.D. on 10/16/2021 at 16:21 ? [facility] Narrative Medical decision making narrative: Patient has had reassuring history and physical exam. She reports exertional dyspnea and some orthopnea and had a very recent increase in her Lasix. She has a not echocardiogram scheduled by her PCP. Chest x-ray is clear and labs are very reassuring. She does not have COVID and the remainder of the viral panel is unremarkable. She had bronchospasm and deep breath elicit a cough which was tremendously improved with bronchodilators. She ambulates without significant difficulty and has sats which remained in the mid 90s. EKG is nonischemic, troponin is negative, D-dimer is slightly elevated but considered negative when corrected for age. This is likely a combination of a slight exacerbation of CHF with some element of bronchospasm. She has been given return precautions and questions have been answered to her apparent satisfaction. Her ride is and route. Prescription sent to her pharmacy Discharge Plan Departure Patient Disposition: Home Clinical Impression: CHF (congestive heart failure), Acute bronchospasm Instructions: DI for Shortness of Breath Activity Restrictions/Additional Instructions: *You have been diagnosed with [shortness of breath likely due to a few reasons including extra fluid in your lungs which is being treated by the increased dose of the water pill by Dr. Gonzalez as well as bronchospasm which the inhalers have helped. There is no evidence of pneumonia, anemia, COVID or other si gnificant diagnoses that would require a specific treatment. *What to do: *Please continue to take your regular medications as directed. [ x] New medication prescriptions sent to your pharmacy: [[facility]] [ ] New medication written as a paper prescription [ ] No new medications given *Please follow up with your primary care provider in 2-3 days, call for an ap pointment. Let them know you were seen in the Emergency Department and that we ask that you be seen in follow up. We will electronically transmit a record of today's note if your PCP is in our system *If you do not have a primary care provider please contact the [facility] Resource line at [phone]. They will ask some questions about your medical history and help get you set up with a doctor in the community. *Return to Emergency Department if you should have any new, worsening or co ncerning symptoms, such as [fever greater than 101 F, shaking chills, worsening pain, persistent vomiting or other bothersome symptoms] Prescriptions: New prednisone 20 mg tablet 20 mg PO DAILY Qty: 5 0RF Rx Instructions: administer with food or milk No Action citalopram [Celexa] 20 mg tablet 10 mg PO DAILY Qty: 0 0RF Label Comments: Patient reports she is weaning off omeprazole 20 mg capsule,delayed release(DR/EC) See Rx Instructions .ROUTE .COMPLEX Qty: 180 0RF Dose Instruction: TAKE 1 CAPSULE BY MOUTH TWICE DAILY Rx Instructions: TAKE 1 CAPSULE BY MOUTH TWICE DAILY estradiol 10 mcg insert, dose pack 10 mcg VAG 2XW 0RF ferrous sulfate 324 mg (65 mg iron) tablet,delayed release (DR/EC) 324 mg PO BID 0RF nystatin-triamcinolone 100,000-0.1 unit/gram-% ointment 1 applictn TOPICAL BID PRN (Reason: as directed) 0RF Rx Instructions: Apply to affected area twice a day for 3 weeks flecainide 50 mg tablet 100 mg PO BID 0RF pramipexole 0.5 mg Tablet 1 mg PO DAILY 0RF pramipexole 0.25 mg Tablet 0.25 mg PO BEDTIME 0RF Label Comments: takes 2.5 tabs at night Eliquis 5 mg tablet 5 mg PO BID Qty: 60 2RF diltiazem HCl 120 mg capsule,extended release 24hr 120 mg PO BID 0RF Label Comments: TK 1 C PO BID FOR BP CONTROL albuterol sulfate 90 mcg/actuation HFA aerosol inhaler 2 puff INHALATION Q4-6H PRN (Reason: Wheezing) 0RF Label Comments: INL 2 PFS PO Q 4 TO 6 H PRF WHZ acetaminophen 650 mg tablet extended release 650 mg PO Q12H 0RF gabapentin 300 mg capsule 300 mg PO TID 0RF Referrals: Danelle Gonzalez MD [Primary Care Provider] -
[2021-10-16 17:10] LABS: PTT Partial Thromboplastin Tim 32 SECONDS (26.4-36.2)
[2021-10-16 17:12] LABS: Alanine Aminotransferase 26 IU/L (<35); Albumin 4.1 g/dL (3.5-5.0); Albumin Globulin Ratio 1.6 (1.0-2.8); Alkaline Phosphatase 73 U/L (38-126); Aspartate Aminotransferase 28 IU/L (14-36); BUN Creatinine Ratio 23.5 (6-22); Bilirubin Total 0.3 mg/dL (0.2-1.3); Blood Urea Nitrogen 19 mg/dL (7-17); Calcium 9.1 mg/dL (8.4-10.2); Carbon Dioxide 26 mmol/L (22-32); Chloride 103 mmol/L (98-107); Creatine Kinase 48 U/L (30-135); Estimated Glomerular Filt Rate > 60.0 mL/min (>60); Globulin 2.6 g/dL (1.7-4.1); Glucose 107 mg/dL (80-110); HEMOLYSIS < 15 (0-50); Lipase 140 U/L (23-300); Sodium 135 mmol/L (137-145); Total Protein 6.7 g/dL (6.3-8.2)
[2021-10-16 17:24] LABS: NT-proBNP (BNP-Adult 18+) 120 pg/mL (<450); Troponin I < 0.012 ng/mL (0.01-0.034)
[2021-10-16 17:28] LABS: Procalcitonin 0.09 ng/mL (<0.5)
[2021-10-16 17:43] LABS: D Dimer 274 ng/mL (<230)
--- NOTE | 2021-10-16 18:21 | PC.NURSE ---
Assisted pt with ambulating to the bathroom, pt steady but increased SOB with exertion. Pulse ox placed immediately after ambulation and 92% on RA.
[2021-10-16 19:34] LABS: Adenovirus Not Detected (Not Detect); Coronavirus 229E Not Detected (Not Detect); Coronavirus HKU1 Not Detected (Not Detect); Coronavirus NL 63 Not Detected (Not Detect); Coronavirus OC43 Not Detected (Not Detect); Human Metapneumovirus Not Detected (Not Detect); Human Rhinovirus/Enterovirus Not Detected (Not Detect); Influenza A Not Detected (Not Detect); Influenza B Not Detected (Not Detect); Parainfluenza Virus 1 Not Detected (Not Detect); SARS- CoV-2 Not Detected (Not Detecte)
[2021-10-16 19:35] LABS: B. parapertussis Not Detected (Not Detecte); Bordetella pertussis Not Detected (Not Detecte); Chlamydophila pneumoniae Not Detected (Not Detect); Mycoplasma pneumoniae Not Detected (Not Detect); Parainfluenza Virus 2 Not Detected (Not Detect); Parainfluenza Virus 3 Not Detected (Not Detect); Parainfluenza Virus 4 Not Detected (Not Detect); Respiratory Syncytial Virus Not Detected (Not Detect)
[2021-10-16] MEDS: ALBUTEROL/IPRATROPIUM 3 ML AMPUL INH (19:53)
== END 2021-10-16 21:25 | disposition home or self-care (01) ==
PROVIDERS: Emergency Medicine; Emergency Provider Emergency Medicine; PCP Family Medicine
DX: I11.0 Hypertensive heart disease with heart failure (principal); I50.9 Heart failure, unspecified; J98.01 Acute bronchospasm; R41.0 Disorientation, unspecified; Z87.891 Personal history of nicotine dependence
CPT/HCPCS: 36415; 70450; 71045; 80053; 81003; 82550; 83605; 83690; 83880; 84145; 84484; 85025; 85379; 85610; 85730; 87040; 87633; 93005; 93010; 99284; 99285

== ENCOUNTER → 2021-10-27 15:21 | Outpatient (CLI) | payer MEDICARE, SELFPAY ==
--- NOTE | 2021-10-27 | DI.RAD.S_ITS ---
PROCEDURE: XR DEXA AXIAL SKELETON INDICATIONS: Nonrheumatic mitral (valve) insufficiency COMPARISON: [facility], CR, XR DEXA AXIAL SKELETON, 07/09/2020, 12:48. FINDINGS: This blank DEXA report has been sent in error by the PACS system. The correct and complete report will be forthcoming in 1-2 days. Thank you for your patience and understanding. Dictated by: Mable Lee MD, PhD on 10/27/2021 at 16:00 Approved by: Mable Lee MD, PhD on 10/27/2021 at 16:00
== END ==
PROVIDERS: PCP Family Medicine; Referring Provider Family Medicine; Visit Provider Family Medicine
DX: M85.852 Other specified disorders of bone density and structure, left thigh (principal); Z78.0 Asymptomatic menopausal state; I34.0 Nonrheumatic mitral (valve) insufficiency; I10 Essential (primary) hypertension; R60.9 Edema, unspecified; I48.91 Unspecified atrial fibrillation; Z87.891 Personal history of nicotine dependence
CPT/HCPCS: 77080

== ENCOUNTER → 2021-10-27 15:48 | Outpatient (CLI) | payer MEDICARE, SELFPAY ==
[2021-10-27 17:09] LABS: COVID19 -Nasal RAPID Negative (Negative)
== END ==
PROVIDERS: PCP Family Medicine; Referring Provider Internal Medicine; Visit Provider Internal Medicine
DX: Z20.822 Contact with and (suspected) exposure to COVID-19 (principal)
CPT/HCPCS: 87635; C9803

== ENCOUNTER → 2021-10-29 15:16 | Outpatient (CLI) | payer MEDICARE, SELFPAY ==
--- NOTE | 2021-11-03 09:51 | PM.PFT.1 ---
Pulmonary Function Test Referral & Results Date Patient Seen: 10/29/21 Requesting provider: Danelle Gonzalez Results: The spirometry demonstrates an FVC of 1.69 L which is 65% of predicted. The FEV1 was measured at 1.54 L which is 80% of predicted. The FEV1/FVC ratio was 91 which is 123% of predicted. Following the administration of bronchodilator there was no appreciable change Lung volumes show an SVC of 2.81 L which is 106% of predicted. The maximum voluntary ventilation was minimally reduced Interpretation: This study demonstrates perhaps very mild obstructive lung disease based on reduction FEV1 although FEV1/FVC ratio is preserved and there is no evidence of benefit after bronchodilator administration. Shape a flow volume loop also does not really support the presence of obstructive lung disease Lung volumes are normal Overall I would consider this a normal study without evidence of significant chronic lung disease
== END ==
PROVIDERS: PCP Family Medicine; Referring Provider Family Medicine; Visit Provider Family Medicine
DX: R06.02 Shortness of breath (principal); J44.9 Chronic obstructive pulmonary disease, unspecified
CPT/HCPCS: 94060; 94726

== ENCOUNTER → 2021-12-07 16:52 | Outpatient (ROUT) | payer MEDICARE, SELFPAY ==
[2021-12-07 18:06] LABS: COVID-19 CEPHEID PCR (VTM/NP) Negative (Negative)
== END ==
PROVIDERS: PCP Family Medicine; Visit Provider Family Medicine
DX: Z20.822 Contact with and (suspected) exposure to COVID-19 (principal)
CPT/HCPCS: U0003

== ENCOUNTER 2022-04-19 13:50 | Emergency (ER) | payer MEDICARE, SELFPAY ==
[2022-04-19 14:05] VITALS: BP 152/70; PULSE 63; RESP 22; TEMP 36.4; O2SAT 94
--- NOTE | 2022-04-19 14:07 | DI.RAD.S_ITS ---
PROCEDURE: XR CHEST 2V INDICATIONS: shortness of breath TECHNIQUE: 2 views of the chest were acquired. COMPARISON: [facility], , XR CHEST 2V, 09/30/2021, 16:46. FINDINGS: Surgical changes and devices: Left total shoulder arthroplasty. Lungs and pleura: Lungs are clear. No pleural effusions or pneumothorax. Mediastinum: Mediastinal contours are normal. Heart size is normal. Bones and chest wall: No suspicious bony abnormalities. Soft tissues appear unremarkable. IMPRESSION: No acute cardiopulmonary process demonstrated radiographically. Dictated by: Ender Olmedo M.D. on 04/19/2022 at 15:38 Approved by: Ender Olmedo M.D. on 04/19/2022 at 15:42
[2022-04-19 14:38] LABS: Add Manual Diff / Slide Review NO; Basophils Absolute Auto 100 /uL (0-100); Basophils Percent Auto 1.2 % (0-2); Eosinophils Absolute Auto 300 /uL (0-450); Eosinophils Percent Auto 3.2 % (2-4); Hematocrit 37.2 % (36-46); Hemoglobin 12.7 g/dL (12.0-16.0); Lymphocytes Absolute Auto 900 /uL (1100-4500); Mean Corpuscular HGB Conc 34.1 % (30-36); Mean Corpuscular Hemoglobin 34.2 PG (26-34); Mean Corpuscular Volume 100.3 fL (80-100); Monocytes Absolute Auto 900 /uL (0-900); Monocytes Percent Auto 11.3 % (3-14); Neutrophils Absolute Auto 5900 /uL (1500-7000); Neutrophils Percent Auto 73.3 % (50-75); Platelet Count 190 X10^3/uL (150-400); Red Blood Cell Count 3.71 X10^6/uL (4.0-5.2); Red Cell Distribution Width 12.7 % (11.6-14.8); White Blood Cell Count 8.1 X10^3/uL (4.5-11.0)
[2022-04-19 14:41] LABS: INR 1.6 (0.9-1.3); Prothrombin Time 18.2 SECONDS (10.1-12.7)
[2022-04-19 14:46] LABS: Lactate (Lactic Acid) 1.2 mmol/L (0.7-2.1)
[2022-04-19 14:48] LABS: Alanine Aminotransferase 32 IU/L (<35); Albumin 3.9 g/dL (3.5-5.0); Albumin Globulin Ratio 1.3 (1.0-2.8); Alkaline Phosphatase 96 U/L (38-126); Aspartate Aminotransferase 40 IU/L (14-36); BUN Creatinine Ratio 27.2 (6-22); Bilirubin Total 0.3 mg/dL (0.2-1.3); Blood Urea Nitrogen 22 mg/dL (7-17); Calcium 8.8 mg/dL (8.4-10.2); Carbon Dioxide 25 mmol/L (22-32); Chloride 105 mmol/L (98-107); Estimated Glomerular Filt Rate > 60 mL/min (>60); Globulin 3.1 g/dL (1.7-4.1); Glucose 136 mg/dL (80-110); HEMOLYSIS 23 (0-50); Sodium 137 mmol/L (137-145)
[2022-04-19 14:55] LABS: NT-proBNP (BNP-Adult 18+) 142 pg/mL (<450)
[2022-04-19 16:02] LABS: Creatine Kinase 49 U/L (30-135)
--- NOTE | 2022-04-19 16:11 | PC.NURSE ---
Pt neighbor is leaving and would like to leave her phone number. Toni Wade [phone]
[2022-04-19 16:15] LABS: Troponin I < 0.012 ng/mL (0.01-0.034)
[2022-04-19 18:30] VITALS: BP 149/69; PULSE 65; RESP 18; O2SAT 98
--- NOTE | 2022-05-02 09:53 | ED_ITS ---
HPI - SOB/Dyspnea <Chuck Mansfield PA-C - Last Filed: 05/02/22 10:03> General Chief Complaint: Shortness of Breath/Dyspnea Stated Complaint: COUGH SOB Time Seen by Provider: 04/19/22 15:49 Source: patient and family Mode of arrival: Ambulatory History of Present Illness HPI Narrative: 82-year-old female with past medical history hypertension, obstructive sleep apnea, RLS presents to the ED with shortness of breath. Patient endorses some associated weakness, cough. Patient denies fever, chills, chest pain, nausea, vomiting, abdominal pain, dysuria, lightheadedness, dizziness, syncope. Related Data Home Medications Medication Instructions Recorded Confirmed estradiol 10 mcg vaginal insert, 10 mcg vaginal 2XW 10/17/18 12/21/21 in a starter dose pack nystatin-triamcinolone 100,000 1 applictn topical BID PRN as 07/18/19 04/14/22 unit/gram-0.1 % topical ointment directed albuterol sulfate 90 mcg/actuation 2 puff inhalation Q4-6H PRN 01/15/20 12/21/21 aerosol inhaler Wheezing diltiazem HCl 120 mg 120 mg PO BID 01/15/20 12/21/21 capsule,extended release 24 hr acetaminophen 650 mg 650 mg PO Q12H 08/19/21 12/21/21 tablet,extended release citalopram 20 mg tablet (Celexa) 10 mg PO DAILY #0 tabs 08/19/21 12/21/21 flecainide 50 mg tablet 100 mg PO BID 08/19/21 12/21/21 omeprazole 20 mg capsule,delayed See Rx Instructions .Route 11/23/21 04/14/22 release .COMPLEX PRN Acid Reflux ropinirole 0.5 mg tablet 0.5 mg PO BEDTIME 11/23/21 04/14/22 Previous Rx's Medication Instructions Recorded apixaban 5 mg tablet (Eliquis) 5 mg PO BID #60 tabs 09/05/19 albuterol sulfate 0.63 mg/3 mL 0.63 mg (3 mL) inhalation QID PRN 05/11/22 solution for nebulization shortness of breath or wheezing #75 mL prednisone 10 mg tablet 10 mg PO DAILY #30 tabs 05/11/22 Allergies Allergy/AdvReac Type Severity Reaction Status Date / Time adhesive tape Allergy Severe Rash, Verified 05/11/22 15:24 blister with a clear type of dressing tape codeine [CODEINE] Allergy Severe Rash Verified 05/11/22 15:24 tetanus toxoid, adsorbed Allergy Severe Rash, Verified 05/11/22 15:24 Itch, joint pain thimerosal [THIMEROSAL] Allergy Severe Rash, Verified 05/11/22 15:24 Itch, joint pain metoprolol Allergy Verified 05/11/22 15:24 Review of Systems <Chuck Mansfield PA-C - Last Filed: 05/02/22 10:03> Review of Systems ROS Unobtainable: All systems reviewed & are unremarkable except as noted in HPI and below Constitutional Constitutional: Denies chills, Reports fatigue, Denies fever(s), Denies frequent falls, Denies lethargy and Reports weakness Eyes Eyes: Denies change in vision, Denies eye discharge, Denies irritation and Denies loss of vision ENT Ears, Nose, Mouth, and Throat: Denies change in voice, Denies dizziness, Denies neck pain, Denies sore throat and Denies throat swelling Cardiovascular Cardiovascular: Denies chest pain, Denies irregular heart rhythm, Denies lightheadedness, Denies palpitations, Reports dyspnea, Denies dyspnea on exertion and Denies orthopnea Respiratory Respiratory: Reports cough, Reports dyspnea, Denies dyspnea on exertion and Denies wheezing Gastrointestinal Gastrointestinal: Denies abdominal pain, Denies change in bowel habits, Denies diarrhea, Denies nausea and Denies vomiting Genitourinary Genitourinary: Denies hematuria, Denies flank pain, Denies urinary incontinence and Denies urinary urgency Musculoskeletal Musculoskeletal: Denies back pain, Denies muscle weakness, Denies neck pain, Denies numbness and Denies tingling Integumentary/Breasts Skin/Breast: Denies pruritus, Denies erythema, Denies rash and Denies wounds Neurologic Neurologic: Denies behavioral changes, Denies confusion, Denies dizziness, Denies frequent falls, Denies loss of vision, Denies numbness, Denies tingling and Reports weakness Psychiatric Psychiatric: Denies anxiety, Denies behavioral changes, Denies confusion, Denies depression, Denies homicidal ideation and Denies suicidal ideation Endocrine Endocrine: Reports fatigue, Denies flushing and Denies palpitations Hematologic/Lymphatic Hematologic/Lymphatic: Denies easy bruising Allergic/Immunologic Allergic/Immunologic: Denies urticaria, Denies throat swelling and Denies wheezing Patient History <Chuck Mansfield PA-C - Last Filed: 05/02/22 10:03> Medical History Chronic iron deficiency anemia Chronic neck and back pain Depression DJD (degenerative joint disease), multiple sites Dyspnea on minimal exertion Easy bruisability Fatigue due to sleep pattern disturbance Former smoker Hearing impairment Heart murmur HTN (hypertension) Insomnia due to medical condition Nocturnal hypoxemia Obstructive sleep apnea, adult Paroxysmal A-fib (07/09/19) Pneumonia Restless legs syndrome (RLS) Skin cancer of face Tingling Wheezing Surgical History History of arthroplasty of left knee (~2016) History of arthroplasty of right knee History of total replacement of left shoulder joint Hx of bilateral cataract extraction Hx of dilation and curettage Hx of left breast biopsy Hx of repair of left rotator cuff (~2001) Hx of tonsillectomy Hx of tubal ligation Social History marital status: details: lives in [place] household members: spouse lives independently: Yes caregiver/support person: No Smoking Status: Former smoker alcohol intake: former Smoking Status: Former smoker alcohol intake frequency: holidays/special occasions only Substance Use Type: does not use Exam <Chuck Mansfield PA-C - Last Filed: 05/02/22 10:03> Narrative Exam Narrative: Const General:?cooperative, healthy appearing and comfortable [facility] Head:?normal to inspection Ears:?hearing grossly normal bilaterally Nose:?external nose normal Face and sinus:?normal facial exam and sinuses nontender Mouth:?oral mucosae normal Throat:?posterior oropharynx normal Eyes General:?appearance normal, both eyes and all related structures Neck Neck:?normal visual inspection and no lymphadenopathy noted Resp Effort & Inspection:?normal respiratory effort Auscultation:?clear to auscultation bilaterally Cardio Rate:?regular rate Rhythm:?regular rhythm Neuro General:?patient alert, patient awake and patient oriented x3 Initial Vital Signs Initial Vital Signs: Vital Signs Temperature 97.6 F 04/19/22 14:05 Pulse Rate 63 04/19/22 14:05 Respiratory Rate 22 04/19/22 14:05 Blood Pressure 152/70 H 04/19/22 14:05 Pulse Oximetry 94 04/19/22 14:05 Oxygen Delivery Method 04/19/22 14:05 <Carolyn Green DO - Last Filed: 05/23/22 13:38> Initial Vital Signs Initial Vital Signs: Vital Signs Temperature 97.6 F 04/19/22 14:05 Pulse Rate 63 04/19/22 14:05 Respiratory Rate 22 04/19/22 14:05 Blood Pressure 152/70 H 04/19/22 14:05 Pulse Oximetry 94 04/19/22 14:05 Oxygen Delivery Method 04/19/22 14:05 MDM - SOB/Dyspnea <Chuck Mansfield PA-C - Last Filed: 05/02/22 10:03> Lab Data Lab results narrative: labs wnl Result diagrams: 04/19/22 14:14 04/19/22 14:14 Labs: Lab Results 04/19/22 04/19/22 04/19/22 Range/Units 14:14 14:14 14:14 WBC 8.1 (4.5-11.0) X10^3/uL RBC 3.71 L (4.0-5.2) X10^6/uL Hgb 12.7 (12.0-16.0) g/dL Hct 37.2 (36-46) % MCV 100.3 H (80-100) fL MCH 34.2 H (26-34) PG MCHC 34.1 (30-36) % RDW 12.7 (11.6-14.8) % Plt Count 190 (150-400) X10^3/uL Neut % (Auto) 73.3 (50-75) % Lymph % (Auto) 11.0 L (25-40) % [place] % (Auto) 11.3 (3-14) % Eos % (Auto) 3.2 (2-4) % Baso % (Auto) 1.2 (0-2) % Neut # (Auto) 5900 (1462-0930) /uL Lymph # (Auto) 900 L (1433-9030) /uL [place] # (Auto) 900 (0-900) /uL Eos # (Auto) 300 (0-450) /uL Baso # (Auto) 100 (0-100) /uL PT (10.1-12.7) SECONDS INR (0.9-1.3) Sodium 137 (137-145) mmol/L Potassium 4.0 (3.4-5.1) mmol/L Chloride 105 (98-107) mmol/L Carbon Dioxide 25 (22-32) mmol/L BUN 22 H (7-17) mg/dL Creatinine 0.81 (0.52-1.04) mg/dL Estimated GFR > 60 (>60) mL/min BUN/Creatinine Ratio 27.2 H (6-22) Glucose 136 H (80-110) mg/dL Lactate 1.2 (0.7-2.1) mmol/L Calcium 8.8 (8.4-10.2) mg/dL Total Bilirubin 0.3 (0.2-1.3) mg/dL AST 40 H (14-36) IU/L ALT 32 (<35) IU/L Alkaline Phosphatase 96 (38-126) U/L Total Creatine Kinase (30-135) U/L CK-MB (CK-2) CK-MB (CK-2) Rel Index Troponin I (0.01-0.034) ng/mL NT-Pro-B Natriuret Pep 142 (<450) pg/mL Total Protein 7.0 (6.3-8.2) g/dL Albumin 3.9 (3.5-5.0) g/dL Globulin 3.1 (1.7-4.1) g/dL Albumin/Globulin Ratio 1.3 (1.0-2.8) 04/19/22 04/19/22 Range/Units 14:14 14:14 WBC (4.5-11.0) X10^3/uL RBC (4.0-5.2) X10^6/uL Hgb (12.0-16.0) g/dL Hct (36-46) % MCV (80-100) fL MCH (26-34) PG MCHC (30-36) % RDW (11.6-14.8) % Plt Count (150-400) X10^3/uL Neut % (Auto) (50-75) % Lymph % (Auto) (25-40) % [place] % (Auto) (3-14) % Eos % (Auto) (2-4) % Baso % (Auto) (0-2) % Neut # (Auto) (4024-9839) /uL Lymph # (Auto) (5985-5110) /uL [place] # (Auto) (0-900) /uL Eos # (Auto) (0-450) /uL Baso # (Auto) (0-100) /uL PT 18.2 H (10.1-12.7) SECONDS INR 1.6 H (0.9-1.3) Sodium (137-145) mmol/L Potassium (3.4-5.1) mmol/L Chloride (98-107) mmol/L Carbon Dioxide (22-32) mmol/L BUN (7-17) mg/dL Creatinine (0.52-1.04) mg/dL Estimated GFR (>60) mL/min BUN/Creatinine Ratio (6-22) Glucose (80-110) mg/dL Lactate (0.7-2.1) mmol/L Calcium (8.4-10.2) mg/dL Total Bilirubin (0.2-1.3) mg/dL AST (14-36) IU/L ALT (<35) IU/L Alkaline Phosphatase (38-126) U/L Total Creatine Kinase 49 (30-135) U/L CK-MB (CK-2) TNP CK-MB (CK-2) Rel Index TNP Troponin I < 0.012 (0.01-0.034) ng/mL NT-Pro-B Natriuret Pep (<450) pg/mL Total Protein (6.3-8.2) g/dL Albumin (3.5-5.0) g/dL Globulin (1.7-4.1) g/dL Albumin/Globulin Ratio (1.0-2.8) Imaging Data Chest x-ray: Radiologist's Impression: PROCEDURE:? XR CHEST 2V ? INDICATIONS:? shortness of breath ? TECHNIQUE:? 2 views of the chest were acquired.? ? COMPARISON:? [facility], CR, XR CHEST 2V, 09/30/2021, 16:46. ? FINDINGS:? ? Surgical changes and devices:? Left total shoulder arthroplasty. ? Lungs and pleura:? Lungs are clear.? No pleural effusions or pneumothorax.? ? Mediastinum:? Mediastinal contours are normal.? Heart size is normal.? ? Bones and chest wall:? No suspicious bony abnormalities.? Soft tissues appear unremarkable.? ? IMPRESSION:? No acute cardiopulmonary process demonstrated radiographically. ? ? Dictated by: Ender Olmedo M.D. on 04/19/2022 at 15:38 ? ? Approved by: Ender Olmedo M.D. on 04/19/2022 at 15:42 ? MDM Narrative Medical decision making narrative: 82-year-old female with past medical history hypertension, obstructive sleep apnea, RLS presents to the ED with shortness of breath. Concern ACS versus acute CHF exacerbation versus sleep apnea versus bronchitis versus URI versus other. Will obtain labs, troponin, EKG, BNP, chest x-ray. Workup without acute findings. Patient's symptoms likely due to URI/bronchitis Supportive care measures discussed with patient with [id number] cough medicine. ED return precautions discussed with patient. Patient verbalized understanding. <Carolyn Green, DO - Last Filed: 05/23/22 13:38> Lab Data Labs: Lab Results 04/19/22 04/19/22 04/19/22 Range/Units 14:14 14:14 14:14 WBC 8.1 (4.5-11.0) X10^3/uL RBC 3.71 L (4.0-5.2) X10^6/uL Hgb 12.7 (12.0-16.0) g/dL Hct 37.2 (36-46) % MCV 100.3 H (80-100) fL MCH 34.2 H (26-34) PG MCHC 34.1 (30-36) % RDW 12.7 (11.6-14.8) % Plt Count 190 (150-400) X10^3/uL Neut % (Auto) 73.3 (50-75) % Lymph % (Auto) 11.0 L (25-40) % [place] % (Auto) 11.3 (3-14) % Eos % (Auto) 3.2 (2-4) % Baso % (Auto) 1.2 (0-2) % Neut # (Auto) 5900 (6649-0410) /uL Lymph # (Auto) 900 L (3802-8752) /uL [place] # (Auto) 900 (0-900) /uL Eos # (Auto) 300 (0-450) /uL Baso # (Auto) 100 (0-100) /uL PT (10.1-12.7) SECONDS INR (0.9-1.3) Sodium 137 (137-145) mmol/L Potassium 4.0 (3.4-5.1) mmol/L Chloride 105 (98-107) mmol/L Carbon Dioxide 25 (22-32) mmol/L BUN 22 H (7-17) mg/dL Creatinine 0.81 (0.52-1.04) mg/dL Estimated GFR > 60 (>60) mL/min BUN/Creatinine Ratio 27.2 H (6-22) Glucose 136 H (80-110) mg/dL Lactate 1.2 (0.7-2.1) mmol/L Calcium 8.8 (8.4-10.2) mg/dL Total Bilirubin 0.3 (0.2-1.3) mg/dL AST 40 H (14-36) IU/L ALT 32 (<35) IU/L Alkaline Phosphatase 96 (38-126) U/L Total Creatine Kinase (30-135) U/L CK-MB (CK-2) CK-MB (CK-2) Rel Index Troponin I (0.01-0.034) ng/mL NT-Pro-B Natriuret Pep 142 (<450) pg/mL Total Protein 7.0 (6.3-8.2) g/dL Albumin 3.9 (3.5-5.0) g/dL Globulin 3.1 (1.7-4.1) g/dL Albumin/Globulin Ratio 1.3 (1.0-2.8) 04/19/22 04/19/22 Range/Units 14:14 14:14 WBC (4.5-11.0) X10^3/uL RBC (4.0-5.2) X10^6/uL Hgb (12.0-16.0) g/dL Hct (36-46) % MCV (80-100) fL MCH (26-34) PG MCHC (30-36) % RDW (11.6-14.8) % Plt Count (150-400) X10^3/uL Neut % (Auto) (50-75) % Lymph % (Auto) (25-40) % [place] % (Auto) (3-14) % Eos % (Auto) (2-4) % Baso % (Auto) (0-2) % Neut # (Auto) (8698-6980) /uL Lymph # (Auto) (9820-1191) /uL [place] # (Auto) (0-900) /uL Eos # (Auto) (0-450) /uL Baso # (Auto) (0-100) /uL PT 18.2 H (10.1-12.7) SECONDS INR 1.6 H (0.9-1.3) Sodium (137-145) mmol/L Potassium (3.4-5.1) mmol/L Chloride (98-107) mmol/L Carbon Dioxide (22-32) mmol/L BUN (7-17) mg/dL Creatinine (0.52-1.04) mg/dL Estimated GFR (>60) mL/min BUN/Creatinine Ratio (6-22) Glucose (80-110) mg/dL Lactate (0.7-2.1) mmol/L Calcium (8.4-10.2) mg/dL Total Bilirubin (0.2-1.3) mg/dL AST (14-36) IU/L ALT (<35) IU/L Alkaline Phosphatase (38-126) U/L Total Creatine Kinase 49 (30-135) U/L CK-MB (CK-2) TNP CK-MB (CK-2) Rel Index TNP Troponin I < 0.012 (0.01-0.034) ng/mL NT-Pro-B Natriuret Pep (<450) pg/mL Total Protein (6.3-8.2) g/dL Albumin (3.5-5.0) g/dL Globulin (1.7-4.1) g/dL Albumin/Globulin Ratio (1.0-2.8) Discharge Plan Departure Patient Disposition: Home Clinical Impression: Shortness of breath Instructions: DI for Shortness of Breath Activity Restrictions/Additional Instructions: You were evaluated in the ED for a cough and shortness of breath. Your labs, EKG, chest x-ray were normal. You may take some [id number] cough medicine for your symptoms. Please follow-up with your storeroom attendant Dr. Cornejo and your PCP. Return to the ED if you have worsening shortness of breath, chest pain, fever, chills. Prescriptions: No Action citalopram [Celexa] 20 mg tablet 10 mg PO DAILY Qty: 0 Label Comments: Patient reports she is weaning off estradiol 10 mcg insert, dose pack 10 mcg VAG 2XW nystatin-triamcinolone 100,000-0.1 unit/gram-% ointment 1 applictn TOPICAL BID PRN (Reason: as directed) Rx Instructions: Apply to affected area twice a day for 3 weeks flecainide 50 mg tablet 100 mg PO BID ropinirole 0.5 mg Tablet 0.5 mg PO BEDTIME Rx Instructions: administer 1-3 hours before bedtime omeprazole 20 mg capsule,delayed release(DR/EC) See Rx Instructions .ROUTE .COMPLEX PRN (Reason: Acid Reflux) Rx Instructions: TAKE 1 CAPSULE BY MOUTH TWICE DAILY Eliquis 5 mg tablet 5 mg PO BID Qty: 60 2RF diltiazem HCl 120 mg capsule,extended release 24hr 120 mg PO BID Label Comments: TK 1 C PO BID FOR BP CONTROL albuterol sulfate 90 mcg/actuation HFA aerosol inhaler 2 puff INHALATION Q4-6H PRN (Reason: Wheezing) Label Comments: INL 2 PFS PO Q 4 TO 6 H PRF WHZ prednisone 10 mg tablet 10 mg PO DAILY Qty: 30 0RF Rx Instructions: day 1-3: 40 mg once a day day 4-6: 30 mg once a day day 7-9: 20 mg once a day day 10-12: 10 mg once a day albuterol sulfate 0.63 mg/3 mL solution for nebulization 0.63 mg INHALATION QID PRN (Reason: shortness of breath or wheezing) Qty: 75 0RF acetaminophen 650 mg tablet extended release 650 mg PO Q12H Referrals: Danelle Gonzalez MD [Primary Care Provider] - Visit Report Forms: Patient Portal/API <Carolyn Green DO - Last Filed: 05/23/22 13:38> Cosign ED Attending Iselaature Attestation: I was immediately available in the department for consultation. Documentation has been reviewed.
== END 2022-04-19 18:31 | disposition home or self-care (01) ==
PROVIDERS: Emergency Medicine; Emergency Provider Student in an Organized Health Care Education/Training Program; PCP Family Medicine
DX: R06.02 Shortness of breath (principal); R05.9 Cough, unspecified
CPT/HCPCS: 71046; 80053; 82550; 83605; 83880; 84484; 85025; 85610; 93005; 93010; 99282; 99284

== ENCOUNTER → 2022-04-29 11:51 | Outpatient (CLI) | payer MEDICARE, SELFPAY ==
[2022-04-29 22:54] LABS: NT-proBNP (BNP-Adult 18+) 32 pg/mL (<450)
== END ==
PROVIDERS: PCP Family Medicine; Referring Provider Internal Medicine Cardiovascular Disease; Visit Provider Internal Medicine Cardiovascular Disease
DX: R06.00 Dyspnea, unspecified (principal)
CPT/HCPCS: 36415; 83880

== ENCOUNTER → 2022-05-09 15:38 | Outpatient (CLI) | payer MEDICARE, SELFPAY ==
[2022-05-09 16:37] LABS: Add Manual Diff / Slide Review NO; Basophils Absolute Auto 100 /uL (0-100); Basophils Percent Auto 0.7 % (0-2); Eosinophils Absolute Auto 200 /uL (0-450); Eosinophils Percent Auto 2.4 % (2-4); Hemoglobin 13.1 g/dL (12.0-16.0); Lymphocytes Absolute Auto 1200 /uL (1100-4500); Lymphocytes Percent Auto 13.7 % (25-40); Mean Corpuscular HGB Conc 34.4 % (30-36); Mean Corpuscular Hemoglobin 33.6 PG (26-34); Mean Corpuscular Volume 97.5 fL (80-100); Monocytes Absolute Auto 900 /uL (0-900); Monocytes Percent Auto 9.5 % (3-14); Neutrophils Absolute Auto 6700 /uL (1500-7000); Neutrophils Percent Auto 73.7 % (50-75); Platelet Count 214 X10^3/uL (150-400); Red Cell Distribution Width 12.7 % (11.6-14.8); White Blood Cell Count 9.1 X10^3/uL (4.5-11.0)
[2022-05-09 17:04] LABS: BUN Creatinine Ratio 36.6 (6-22); Blood Urea Nitrogen 52 mg/dL (7-17); Calcium 9.2 mg/dL (8.4-10.2); Carbon Dioxide 27 mmol/L (22-32); Chloride 95 mmol/L (98-107); Estimated Glomerular Filt Rate 37 mL/min (>60); Glucose 191 mg/dL (80-110); HEMOLYSIS < 15 (0-50); Potassium 3.2 mmol/L (3.4-5.1); Sodium 134 mmol/L (137-145)
[2022-05-09 17:11] LABS: NT-proBNP (BNP-Adult 18+) 206 pg/mL (<450)
== END ==
PROVIDERS: PCP Family Medicine; Referring Provider Internal Medicine Cardiovascular Disease; Visit Provider Internal Medicine Cardiovascular Disease
DX: R06.00 Dyspnea, unspecified (principal)
CPT/HCPCS: 36415; 80048; 83880; 85025

== ENCOUNTER → 2022-05-09 15:57 | Outpatient (CLI) | payer MEDICARE, SELFPAY ==
--- NOTE | 2022-05-09 | DI.RAD.S_ITS ---
PROCEDURE: XR CHEST 2V INDICATIONS: Dyspnea, unspecified TECHNIQUE: 2 views of the chest were acquired. COMPARISON: [facility], CR, XR CHEST 2V, 04/19/2022, 14:01. FINDINGS: Surgical changes and devices: Left shoulder arthroplasty redemonstrated.. Lungs and pleura: Lungs are clear, aside from medial right basilar airspace opacity.. No pleural effusions or pneumothorax. Mediastinum: Mediastinal contours are normal. Heart size is normal. Bones and chest wall: No suspicious bony abnormalities. Soft tissues appear unremarkable. IMPRESSION: Medial right basilar atelectasis versus aspiration or pneumonia. Continued radiographic surveillance to resolution is recommended. Dictated by: Ponce Vail RRA Interpreted: Mable Lee MD on 05/09/2022 at 16:18 Transcribed by: RAMU on 05/09/2022 at 16:19 Approved by: Mable Lee MD, PhD on 05/09/2022 at 17:37
== END ==
PROVIDERS: PCP Family Medicine; Referring Provider Internal Medicine Cardiovascular Disease; Visit Provider Internal Medicine Cardiovascular Disease
DX: R06.00 Dyspnea, unspecified (principal)
CPT/HCPCS: 36415; 71046; 80048; 83880; 85025

== ENCOUNTER 2022-05-11 15:14 | Emergency (ER) | payer MEDICARE, SELFPAY ==
[2022-05-11 15:18] VITALS: BP 137/71; PULSE 90; RESP 14; TEMP 37; O2SAT 96; BMI 30.9
--- NOTE | 2022-05-11 15:23 | DI.RAD.S_ITS ---
PROCEDURE: XR CHEST 2V INDICATIONS: shortness of breath TECHNIQUE: 2 views of the chest were acquired. COMPARISON: [facility], , XR CHEST 2V, 05/09/2022, 15:50. FINDINGS: Surgical changes and devices: Partially visualized left shoulder arthroplasty. Lungs and pleura: Lungs are clear. No pleural effusions or pneumothorax. Previous medial right basilar opacity appears to have resolved. Mediastinum: Mediastinal contours are normal. Heart size is normal. Bones and chest wall: No suspicious bony abnormalities. Soft tissues appear unremarkable. IMPRESSION: No acute pulmonary process. Dictated by: Linda Meade M.D. on 05/11/2022 at 16:09 Approved by: Linda Meade M.D. on 05/11/2022 at 16:10
[2022-05-11 15:30] VITALS: BP 135/69; PULSE 73; RESP 24; O2SAT 96
--- NOTE | 2022-05-11 15:38 | PC.NURSE ---
Pt arrives to ED via medics for SOB x q few weeks., worse today. Denies CP. Reports having albuterol at home but does not feel like she is wheezing. Reports SOB with exertion and a dry cough. Hx. of CHF, esophageal cancer (treatment complete) and A fib.
[2022-05-11 15:40] LABS: Add Manual Diff / Slide Review NO; Basophils Absolute Auto 100 /uL (0-100); Basophils Percent Auto 0.8 % (0-2); Eosinophils Absolute Auto 200 /uL (0-450); Eosinophils Percent Auto 1.6 % (2-4); Hematocrit 39.3 % (36-46); Hemoglobin 13.4 g/dL (12.0-16.0); Lymphocytes Absolute Auto 1000 /uL (1100-4500); Lymphocytes Percent Auto 9.1 % (25-40); Mean Corpuscular HGB Conc 34.1 % (30-36); Mean Corpuscular Hemoglobin 32.8 PG (26-34); Mean Corpuscular Volume 96.2 fL (80-100); Monocytes Absolute Auto 1200 /uL (0-900); Monocytes Percent Auto 10.7 % (3-14); Neutrophils Absolute Auto 9000 /uL (1500-7000); Neutrophils Percent Auto 77.8 % (50-75); Platelet Count 241 X10^3/uL (150-400); Red Blood Cell Count 4.08 X10^6/uL (4.0-5.2); Red Cell Distribution Width 12.4 % (11.6-14.8); White Blood Cell Count 11.6 X10^3/uL (4.5-11.0)
[2022-05-11 15:48] LABS: INR 1.7 (0.9-1.3); Prothrombin Time 18.6 SECONDS (10.1-12.7)
[2022-05-11 15:53] LABS: Lactate (Lactic Acid) 1.9 mmol/L (0.7-2.1)
--- NOTE | 2022-05-11 16:28 | ED.SOB ---
HPI - SOB/Dyspnea General Chief Complaint: Shortness of Breath/Dyspnea Stated Complaint: SOB w/ exertion,hx CHF Time Seen by Provider: 05/11/22 16:22 Source: patient Mode of arrival: EMS Limitations: no limitations History of Present Illness HPI Narrative: The patient is 82-year-old female history of esophageal cancer, atrial fibrillation on Eliquis, congestive heart failure or pulmonary edema presenting with worsening shortness of breath. She says it has been progressively getting worse. She has extreme shortness of breath with very minimal exertion. She has no chest pain or palpitations. She has no lower extremity edema. She has orthopnea but is not any worse than normal. She denies any fevers or chills. She is on a diuretic or ready. She was actually discharged on spironolactone on 04/29/2022. It does seem to be helping. She has been using her inhalers intermittently. She sees a photogrammetrist as well. She actually has home health care to check on her as well. They report that sometimes her oxygen is 89-90% and that she may need some supplemental oxygen. Currently she is 97%. But has some conversational dyspnea. Related Data Home Medications Medication Instructions Recorded Confirmed estradiol 10 mcg vaginal insert, 10 mcg vaginal 2XW 10/17/18 12/21/21 in a starter dose pack nystatin-triamcinolone 100,000 1 applictn topical BID PRN as 07/18/19 04/14/22 unit/gram-0.1 % topical ointment directed albuterol sulfate 90 mcg/actuation 2 puff inhalation Q4-6H PRN 01/15/20 12/21/21 aerosol inhaler Wheezing diltiazem HCl 120 mg 120 mg PO BID 01/15/20 12/21/21 capsule,extended release 24 hr acetaminophen 650 mg 650 mg PO Q12H 08/19/21 12/21/21 tablet,extended release citalopram 20 mg tablet (Celexa) 10 mg PO DAILY #0 tabs 08/19/21 12/21/21 flecainide 50 mg tablet 100 mg PO BID 08/19/21 12/21/21 omeprazole 20 mg capsule,delayed See Rx Instructions .Route 11/23/21 04/14/22 release .COMPLEX PRN Acid Reflux ropinirole 0.5 mg tablet 0.5 mg PO BEDTIME 11/23/21 04/14/22 Previous Rx's Medication Instructions Recorded apixaban 5 mg tablet (Eliquis) 5 mg PO BID #60 tabs 09/05/19 albuterol sulfate 0.63 mg/3 mL 0.63 mg (3 mL) inhalation QID PRN 05/11/22 solution for nebulization shortness of breath or wheezing #75 mL prednisone 10 mg tablet 10 mg PO DAILY #30 tabs 05/11/22 Allergies Allergy/AdvReac Type Severity Reaction Status Date / Time adhesive tape Allergy Severe Rash, Verified 05/11/22 15:24 blister with a clear type of dressing tape codeine [CODEINE] Allergy Severe Rash Verified 05/11/22 15:24 tetanus toxoid, adsorbed Allergy Severe Rash, Verified 05/11/22 15:24 Itch, joint pain thimerosal [THIMEROSAL] Allergy Severe Rash, Verified 05/11/22 15:24 Itch, joint pain metoprolol Allergy Verified 05/11/22 15:24 Review of Systems Review of Systems Narrative: GENERAL: Denies chills, fatigue, malaise, fever, sweats, travel HEENT: Denies sinus pain, ear pain, sore throat, difficulty swallowing, neck pain RESPIRATORY: See HPI CARDIOVASCULAR: Denies chest pain, palpitations, orthopnea, edema GASTROINTESTINAL: Denies nausea, vomiting, abdominal pain, diarrhea, constipation, melena. : Denies dysuria, frequency, incontinence, hematuria, urinary retention, flank pain. MUSCULOSKELETAL: Denies weakness, joint pain, or bony pain SKIN: No rash, no erythema, no pruritus NEUROLOGIC: Denies weakness, dizziness, headache, numbness, change in speech, confusion PSYCHIATRIC: No concerning psychosocial issues. 12 point review of systems is negative except for those stated above and HPI Patient History Medical History Chronic iron deficiency anemia Chronic neck and back pain Depression DJD (degenerative joint disease), multiple sites Dyspnea on minimal exertion Easy bruisability Fatigue due to sleep pattern disturbance Former smoker Hearing impairment Heart murmur HTN (hypertension) Insomnia due to medical condition Nocturnal hypoxemia Obstructive sleep apnea, adult Paroxysmal A-fib (07/09/19) Pneumonia Restless legs syndrome (RLS) Skin cancer of face Tingling Wheezing Surgical History History of arthroplasty of left knee (~2016) History of arthroplasty of right knee History of total replacement of left shoulder joint Hx of bilateral cataract extraction Hx of dilation and curettage Hx of left breast biopsy Hx of repair of left rotator cuff (~2001) Hx of tonsillectomy Hx of tubal ligation Social History marital status: details: lives in [place] household members: spouse lives independently: Yes caregiver/support person: No Smoking Status: Former smoker alcohol intake: former Smoking Status: Former smoker alcohol intake frequency: holidays/special occasions only Substance Use Type: does not use Exam Initial Vital Signs Initial Vital Signs: Vital Signs Temperature 98.6 F 05/11/22 15:18 Pulse Rate 90 05/11/22 15:18 Respiratory Rate 14 05/11/22 15:18 Blood Pressure 137/71 05/11/22 15:18 Pulse Oximetry 96 05/11/22 15:18 Oxygen Delivery Method 05/11/22 15:18 GENERAL: Alert 82-year-old female mild respiratory distress and in [no acute] distress. HEENT: Head atraumatic,EOMI, pupils reactive, face symmetric, [moist] mucous membranes CARDIOVASCULAR: Regular rate and rhythm without murmurs, rubs or gallops. RESPIRATORY: Clear bilaterally ABDOMEN: Soft, nontender. Normoactive bowel sounds all 4 quadrants. No guarding or rebound. EXTREMITIES: Normal range of motion, no clubbing or edema. Neurovascularly intact NEUROLOGICAL: Alert and oriented x4.Normal gait and speech. SKIN: Warm, dry, no laceration, no petechiae, no rashes or lesions. Course Orders Ordered: ED Orders 05/11/22 15:23 XR chest 2V Stat EKG-12 Lead Stat Measure peak expiratory flow ONCE RT Consult Eval and Treat Now 05/11/22 15:30 Complete Blood Count AUTO DIFF Stat Lactate (Lactic Acid) Stat Prothrombin Time INR Stat 05/11/22 16:00 Comprehensive Metabolic Panel Stat NT-proBNP (BNP-Adult 18+) Stat Troponin & CK Cardiac Panel Stat 05/11/22 16:08 Procalcitonin Stat 05/11/22 16:52 COVID19 -Nasal RAPID/Pre-Proc Stat Discontinued Medications Albuterol/Ipratropium (Albuterol/Ipratropium 3 Ml Ampul) 3 ml INH NOW ONE Stop: 05/11/22 16:40 Last Admin: 05/11/22 17:37 Dose: 3 ml Documented By: OW Methylprednisolone (Methylprednisolone 125 Mg/2 Ml Vial) 125 mg IV NOW ONE Stop: 05/11/22 16:51 Last Admin: 05/11/22 17:11 Dose: 125 mg Documented By: OW Vital Signs Vital signs: Vital Signs - 8 hr 05/11/22 15:18 05/11/22 15:30 05/11/22 16:30 Temperature 98.6 F Pulse Rate 90 73 74 Respiratory Rate 14 24 31 H Blood Pressure 137/71 135/69 Pulse Oximetry 96 96 95 Oxygen Delivery Method Room Air Room Air 05/11/22 17:15 05/11/22 17:33 05/11/22 18:01 Temperature 98.1 F Pulse Rate 110 H 110 H 111 H Respiratory Rate 21 21 20 Blood Pressure 137/67 143/60 H 111/51 L Pulse Oximetry 96 96 97 Oxygen Delivery Method Room Air Room Air MDM - SOB/Dyspnea Lab Data Result diagrams: 05/11/22 15:30 05/11/22 16:00 Labs: Lab Results 05/11/22 05/11/22 05/11/22 Range/Units 15:30 15:30 15:30 WBC 11.6 H (4.5-11.0) X10^3/uL RBC 4.08 (4.0-5.2) X10^6/uL Hgb 13.4 (12.0-16.0) g/dL Hct 39.3 (36-46) % MCV 96.2 (80-100) fL MCH 32.8 (26-34) PG MCHC 34.1 (30-36) % RDW 12.4 (11.6-14.8) % Plt Count 241 (150-400) X10^3/uL Neut % (Auto) 77.8 H (50-75) % Lymph % (Auto) 9.1 L (25-40) % [place] % (Auto) 10.7 (3-14) % Eos % (Auto) 1.6 L (2-4) % Baso % (Auto) 0.8 (0-2) % Neut # (Auto) 9000 H (5222-9850) /uL Lymph # (Auto) 1000 L (7378-7142) /uL [place] # (Auto) 1200 H (0-900) /uL Eos # (Auto) 200 (0-450) /uL Baso # (Auto) 100 (0-100) /uL PT 18.6 H (10.1-12.7) SECONDS INR 1.7 H (0.9-1.3) Sodium (137-145) mmol/L Potassium (3.4-5.1) mmol/L Chloride (98-107) mmol/L Carbon Dioxide (22-32) mmol/L BUN (7-17) mg/dL Creatinine (0.52-1.04) mg/dL Estimated GFR (>60) mL/min BUN/Creatinine Ratio (6-22) Glucose (80-110) mg/dL Lactate 1.9 (0.7-2.1) mmol/L Calcium (8.4-10.2) mg/dL Total Bilirubin (0.2-1.3) mg/dL AST (14-36) IU/L ALT (<35) IU/L Alkaline Phosphatase (38-126) U/L Total Creatine Kinase (30-135) U/L CK-MB (CK-2) CK-MB (CK-2) Rel Index Troponin I (0.01-0.034) ng/mL NT-Pro-B Natriuret Pep (<450) pg/mL Total Protein (6.3-8.2) g/dL Albumin (3.5-5.0) g/dL Globulin (1.7-4.1) g/dL Albumin/Globulin Ratio (1.0-2.8) Procalcitonin (<0.5) ng/mL SARS-CoV-2 (PCR) (Negative) 05/11/22 05/11/22 05/11/22 Range/Units 16:00 16:08 16:52 WBC (4.5-11.0) X10^3/uL RBC (4.0-5.2) X10^6/uL Hgb (12.0-16.0) g/dL Hct (36-46) % MCV (80-100) fL MCH (26-34) PG MCHC (30-36) % RDW (11.6-14.8) % Plt Count (150-400) X10^3/uL Neut % (Auto) (50-75) % Lymph % (Auto) (25-40) % [place] % (Auto) (3-14) % Eos % (Auto) (2-4) % Baso % (Auto) (0-2) % Neut # (Auto) (2494-8302) /uL Lymph # (Auto) (2289-5116) /uL [place] # (Auto) (0-900) /uL Eos # (Auto) (0-450) /uL Baso # (Auto) (0-100) /uL PT (10.1-12.7) SECONDS INR (0.9-1.3) Sodium 133 L (137-145) mmol/L Potassium 3.5 (3.4-5.1) mmol/L Chloride 97 L (98-107) mmol/L Carbon Dioxide 29 (22-32) mmol/L BUN 50 H (7-17) mg/dL Creatinine 1.09 H (0.52-1.04) mg/dL Estimated GFR 51 L (>60) mL/min BUN/Creatinine Ratio 45.9 H (6-22) Glucose 94 (80-110) mg/dL Lactate (0.7-2.1) mmol/L Calcium 9.3 (8.4-10.2) mg/dL Total Bilirubin 0.4 (0.2-1.3) mg/dL AST 52 H (14-36) IU/L ALT 44 H (<35) IU/L Alkaline Phosphatase 114 (38-126) U/L Total Creatine Kinase 45 (30-135) U/L CK-MB (CK-2) TNP CK-MB (CK-2) Rel Index TNP Troponin I < 0.012 (0.01-0.034) ng/mL NT-Pro-B Natriuret Pep 75 (<450) pg/mL Total Protein 7.8 (6.3-8.2) g/dL Albumin 4.6 (3.5-5.0) g/dL Globulin 3.2 (1.7-4.1) g/dL Albumin/Globulin Ratio 1.4 (1.0-2.8) Procalcitonin 0.13 (<0.5) ng/mL SARS-CoV-2 (PCR) Negative (Negative) Imaging Data Chest x-ray: Radiologist's Impression: [address] [address] XRay Report Signed Patient: Monica Blanchard MR#: [id number] : 1940 Acct:[id number] Age/Sex: 82 / F Date of Service: 05/11/22 Loc: ED Accession Number: [id number] ?? Procedure: XR chest 2V Ordering Provider: Naomy Stern D.O. PROCEDURE:? XR CHEST 2V ? INDICATIONS:? shortness of breath ? TECHNIQUE:? 2 views of the chest were acquired.? ? COMPARISON:? [facility], CR, XR CHEST 2V, 05/09/2022, 15:50. ? FINDINGS:? ? Surgical changes and devices:? Partially visualized left shoulder arthroplasty. ? Lungs and pleura:? Lungs are clear.? No pleural effusions or pneumothorax.? Previous medial right basilar opacity appears to have resolved. ? Mediastinum:? Mediastinal contours are normal.? Heart size is normal.? ? Bones and chest wall:? No suspicious bony abnormalities.? Soft tissues appear unremarkable.? ? IMPRESSION:? No acute pulmonary process. ? ? Dictated by: Linda Meade M.D. on 05/11/2022 at 16:09 ? ECG Data Interpretation: A sinus rhythm rate 73 NE interval 230 QRS [address] changes no T-wave inversions similar previous EKG all some slightly more artifact today. MDM Narrative Medical decision making narrative: Patient does have some increasing shortness of breath as she certainly has coughing with deep breathing. BNP is negative chest x-ray is negative troponin is negative. No sign of infection, procalcitonin is negative she does not have fever or productive cough. She is on inhalers and nebulizer at home. At this time like to put her on steroid taper to see if that helps. Sounds like she has chronic pulmonary issues she does not need oxygen at this time. She ambulated to the restroom and back O2 upon return was 98%. She is already anticoagulated unlikely to be pulmonary embolism. Discharge Plan Departure Patient Disposition: Home Clinical Impression: Bronchitis Instructions: Acute Bronchitis Activity Restrictions/Additional Instructions: *You have been diagnosed with bronchitis, asthma *What to do: At this time no need for antibiotics no need to increase her diuretics. Lets try steroids to see if it helps *Continue to take medications as directed Prednisone 40 mg once a day for 3 days, 30 mg once a day for 3 days, 20 mg once a day for 3 days, 10 mg once a day for 3 days--> SENT TO [facility] Albuterol nebulizer medications sent to [facility] as well May use albuterol every 4 hours if needed or try 4 times a day and then start backing off as you start improved *Follow up with your primary care provider in 2-3 days or call [phone] *Return to ER if you should have increasing shortness of breath, palpitations, fever or any new, worsening or concerning symptoms Prescriptions: New prednisone 10 mg tablet 10 mg PO DAILY Qty: 30 0RF Rx Instructions: day 1-3: 40 mg once a day day 4-6: 30 mg once a day day 7-9: 20 mg once a day day 10-12: 10 mg once a day albuterol sulfate 0.63 mg/3 mL solution for nebulization 0.63 mg INHALATION QID PRN (Reason: shortness of breath or wheezing) Qty: 75 0RF No Action citalopram [Celexa] 20 mg tablet 10 mg PO DAILY Qty: 0 Label Comments: Patient reports she is weaning off estradiol 10 mcg insert, dose pack 10 mcg VAG 2XW nystatin-triamcinolone 100,000-0.1 unit/gram-% ointment 1 applictn TOPICAL BID PRN (Reason: as directed) Rx Instructions: Apply to affected area twice a day for 3 weeks flecainide 50 mg tablet 100 mg PO BID ropinirole 0.5 mg Tablet 0.5 mg PO BEDTIME Rx Instructions: administer 1-3 hours before bedtime omeprazole 20 mg capsule,delayed release(DR/EC) See Rx Instructions .ROUTE .COMPLEX PRN (Reason: Acid Reflux) Rx Instructions: TAKE 1 CAPSULE BY MOUTH TWICE DAILY Eliquis 5 mg tablet 5 mg PO BID Qty: 60 2RF diltiazem HCl 120 mg capsule,extended release 24hr 120 mg PO BID Label Comments: TK 1 C PO BID FOR BP CONTROL albuterol sulfate 90 mcg/actuation HFA aerosol inhaler 2 puff INHALATION Q4-6H PRN (Reason: Wheezing) Label Comments: INL 2 PFS PO Q 4 TO 6 H PRF WHZ acetaminophen 650 mg tablet extended release 650 mg PO Q12H Referrals: Danelle Gonzalez MD [Primary Care Provider] - Visit Report Forms: Patient Portal/API
[2022-05-11 16:29] LABS: Alanine Aminotransferase 44 IU/L (<35); Albumin 4.6 g/dL (3.5-5.0); Albumin Globulin Ratio 1.4 (1.0-2.8); Alkaline Phosphatase 114 U/L (38-126); Aspartate Aminotransferase 52 IU/L (14-36); BUN Creatinine Ratio 45.9 (6-22); Bilirubin Total 0.4 mg/dL (0.2-1.3); Blood Urea Nitrogen 50 mg/dL (7-17); Calcium 9.3 mg/dL (8.4-10.2); Carbon Dioxide 29 mmol/L (22-32); Chloride 97 mmol/L (98-107); Creatine Kinase 45 U/L (30-135); Estimated Glomerular Filt Rate 51 mL/min (>60); Globulin 3.2 g/dL (1.7-4.1); Glucose 94 mg/dL (80-110); HEMOLYSIS < 15 (0-50); Potassium 3.5 mmol/L (3.4-5.1); Sodium 133 mmol/L (137-145); Total Protein 7.8 g/dL (6.3-8.2)
[2022-05-11 16:30] VITALS: PULSE 74; RESP 31; O2SAT 95
[2022-05-11 16:41] LABS: NT-proBNP (BNP-Adult 18+) 75 pg/mL (<450); Troponin I < 0.012 ng/mL (0.01-0.034)
[2022-05-11 17:11] LABS: COVID19 -Nasal RAPID Negative (Negative)
[2022-05-11] MEDS: methylPREDNISolone 125 MG/2 ML VIAL IV (17:11)
[2022-05-11 17:15] VITALS: BP 137/67; PULSE 110; RESP 21; O2SAT 96
[2022-05-11 17:25] LABS: Procalcitonin 0.13 ng/mL (<0.5)
[2022-05-11 17:33] VITALS: BP 143/60; PULSE 110; RESP 21; O2SAT 96
--- NOTE | 2022-05-11 17:33 | PC.NURSE ---
Pt ambulated to bathroom without assist. Gait is steady and slow. SpO2 dropped to 85% and HR was 95 while ambulating. SOB with ambulation but resolved quickly after sitting back in bed.
[2022-05-11] MEDS: ALBUTEROL/IPRATROPIUM 3 ML AMPUL INH (17:37)
[2022-05-11 18:01] VITALS: BP 111/51; PULSE 111; RESP 20; TEMP 36.7; O2SAT 97
== END 2022-05-11 18:40 | disposition home or self-care (01) ==
PROVIDERS: Emergency Provider Emergency Medicine; PCP Family Medicine
DX: J40 Bronchitis, not specified as acute or chronic (principal); Z20.822 Contact with and (suspected) exposure to COVID-19; R06.02 Shortness of breath
CPT/HCPCS: 36415; 71046; 80053; 82550; 83605; 83880; 84145; 84484; 85025; 85610; 87635; 93005; 93010; 96374; 99284; C9803; J2930

== ENCOUNTER 2022-05-23 18:56 | Emergency (ER) | payer MEDICARE, SELFPAY ==
[2022-05-23 18:59] VITALS: TEMP 37.1; BMI 30.1
--- NOTE | 2022-05-23 19:10 | DI.RAD.S_ITS ---
PROCEDURE: XR CHEST 1V INDICATIONS: shortness of breath TECHNIQUE: One view of the chest was acquired. COMPARISON: [facility], CR, XR CHEST 2V, 05/11/2022, 15:34. FINDINGS: Surgical changes and devices: Left shoulder arthroplasty. Overlying monitoring wires. Lungs and pleura: Minor diffuse interstitial thickening. No dense consolidation, effusion, or pneumothorax. There is biapical calcified pleural plaquing. Mediastinum: No central venous congestion. Cardiomediastinal contour is normal. Bones and chest wall: Severe right glenohumeral joint space loss. Degenerative endplate spurs in the thoracic spine. IMPRESSION: 1. Diffuse interstitial thickening may indicate chronic edema or viral pneumonitis. There is no evidence of central vascular congestion though correlation with BNP is recommended. Dictated by: Mela Martinez M.D. on 05/23/2022 at 19:38 Approved by: Mela Martinez M.D. on 05/23/2022 at 19:39
[2022-05-23 19:35] LABS: Add Manual Diff / Slide Review NO; Basophils Absolute Auto 100 /uL (0-100); Basophils Percent Auto 0.4 % (0-2); Eosinophils Absolute Auto 200 /uL (0-450); Eosinophils Percent Auto 1.3 % (2-4); Hematocrit 41.1 % (36-46); Hemoglobin 13.8 g/dL (12.0-16.0); Lymphocytes Absolute Auto 1400 /uL (1100-4500); Lymphocytes Percent Auto 9.4 % (25-40); Mean Corpuscular HGB Conc 33.7 % (30-36); Mean Corpuscular Hemoglobin 33.2 PG (26-34); Mean Corpuscular Volume 98.5 fL (80-100); Monocytes Absolute Auto 1000 /uL (0-900); Monocytes Percent Auto 6.6 % (3-14); Neutrophils Absolute Auto 12000 /uL (1500-7000); Neutrophils Percent Auto 82.3 % (50-75); Platelet Count 208 X10^3/uL (150-400); Red Blood Cell Count 4.18 X10^6/uL (4.0-5.2); White Blood Cell Count 14.6 X10^3/uL (4.5-11.0)
--- NOTE | 2022-05-23 19:36 | ED_ITS ---
HPI - General Adult General Chief complaint: Shortness of Breath/Dyspnea Stated complaint: difficulty breathing, sent by [employer] Time Seen by Provider: 05/23/22 19:06 Source: patient Mode of arrival: Ambulatory Limitations: no limitations History of Present Illness HPI narrative: 82-year-old female. History of CHF. No diagnosis of COPD. No diagnosis of asthma however she states that with her other medical issue she has had wheezing in the past she does have a nebulizer at home. She recently was seen in this department and diagnosed with bronchitis. Was started on steroids. After taking the steroids she stated that she felt much better. She could breathe. Was having no shortness of breath. She ended the course of steroids on Monday morning. Approximately 24 hours later she started to have shortness of breath specifically dyspnea on exertion. Some chest discomfort but it was with the breathing. No coughing. No fevers. No lower extremity swelling. She is short of breath when she lays flat. She is not had any weight gain. Related Data Home Medications Medication Instructions Recorded Confirmed estradiol 10 mcg vaginal insert, 10 mcg vaginal 2XW 10/17/18 12/21/21 in a starter dose pack nystatin-triamcinolone 100,000 1 applictn topical BID PRN as 07/18/19 04/14/22 unit/gram-0.1 % topical ointment directed albuterol sulfate 90 mcg/actuation 2 puff inhalation Q4-6H PRN 01/15/20 12/21/21 aerosol inhaler Wheezing diltiazem HCl 120 mg 120 mg PO BID 01/15/20 12/21/21 capsule,extended release 24 hr acetaminophen 650 mg 650 mg PO Q12H 08/19/21 12/21/21 tablet,extended release citalopram 20 mg tablet (Celexa) 10 mg PO DAILY #0 tabs 08/19/21 12/21/21 flecainide 50 mg tablet 100 mg PO BID 08/19/21 12/21/21 omeprazole 20 mg capsule,delayed See Rx Instructions .Route 11/23/21 04/14/22 release .COMPLEX PRN Acid Reflux ropinirole 0.5 mg tablet 0.5 mg PO BEDTIME 11/23/21 04/14/22 Previous Rx's Medication Instructions Recorded apixaban 5 mg tablet (Eliquis) 5 mg PO BID #60 tabs 09/05/19 albuterol sulfate 0.63 mg/3 mL 0.63 mg (3 mL) inhalation QID PRN 05/11/22 solution for nebulization shortness of breath or wheezing #75 mL prednisone 10 mg tablet 10 mg PO DAILY #30 tabs 05/11/22 prednisone 20 mg tablet 20 mg PO DAILY #30 tabs 05/23/22 Allergies Allergy/AdvReac Type Severity Reaction Status Date / Time adhesive tape Allergy Severe Rash, Verified 05/23/22 19:09 blister with a clear type of dressing tape codeine [CODEINE] Allergy Severe Rash Verified 05/23/22 19:09 tetanus toxoid, adsorbed Allergy Severe Rash, Verified 05/23/22 19:09 Itch, joint pain thimerosal [THIMEROSAL] Allergy Severe Rash, Verified 05/23/22 19:09 Itch, joint pain metoprolol Allergy Verified 05/23/22 19:09 Review of Systems Review of Systems ROS Unobtainable: All systems reviewed & are unremarkable except as noted in HPI and below Patient History Medical History Chronic iron deficiency anemia Chronic neck and back pain Depression DJD (degenerative joint disease), multiple sites Dyspnea on minimal exertion Easy bruisability Fatigue due to sleep pattern disturbance Former smoker Hearing impairment Heart murmur HTN (hypertension) Insomnia due to medical condition Nocturnal hypoxemia Obstructive sleep apnea, adult Paroxysmal A-fib (07/09/19) Pneumonia Restless legs syndrome (RLS) Skin cancer of face Tingling Wheezing Surgical History History of arthroplasty of left knee (~2016) History of arthroplasty of right knee History of total replacement of left shoulder joint Hx of bilateral cataract extraction Hx of dilation and curettage Hx of left breast biopsy Hx of repair of left rotator cuff (~2001) Hx of tonsillectomy Hx of tubal ligation Social History marital status: details: lives in [place] household members: spouse lives independently: Yes caregiver/support person: No Smoking Status: Former smoker alcohol intake: former Smoking Status: Former smoker alcohol intake frequency: holidays/special occasions only Substance Use Type: does not use Exam Initial Vital Signs Initial Vital Signs: Vital Signs Temperature 98.8 F 05/23/22 18:59 Const General: cooperative and comfortable HENMT Head: normal to inspection and normocephalic Chest Chest: normal inspection of the chest Resp Effort & Inspection: normal respiratory effort Auscultation: clear to auscultation bilaterally Cardio Rate: regular rate Rhythm: regular rhythm GI Inspection: normal to inspection Skin General: no rashes or lesions noted Neuro General: patient alert, patient awake and moves all extremities Extrem General: No edema Course Orders Ordered: ED Orders 05/23/22 19:10 XR chest 1V Stat EKG-12 Lead Stat Measure peak expiratory flow ONCE RT Consult Eval and Treat Now 05/23/22 19:20 COVID19 -Nasal RAPID/Pre-Proc Stat Complete Blood Count AUTO DIFF Stat Comprehensive Metabolic Panel Stat Lactate (Lactic Acid) Stat NT-proBNP (BNP-Adult 18+) Stat Partial Thromboplastin Time Stat Prothrombin Time INR Stat Troponin & CK Cardiac Panel Stat Discontinued Medications Prednisone (Prednisone 20 Mg Tablet) 40 mg PO NOW ONE Stop: 05/23/22 20:47 Last Admin: 05/23/22 20:52 Dose: 40 mg Documented By: ADK Vital Signs Vital signs: Vital Signs - 8 hr 05/23/22 18:59 05/23/22 21:06 Temperature 98.8 F Pulse Rate 81 Respiratory Rate 20 Blood Pressure 151/86 H Pulse Oximetry 97 Oxygen Delivery Method Room Air Medical Decision Making Lab Data Lab results reviewed: Yes I reviewed the patient's lab results. Result diagrams: 05/23/22 19:20 05/23/22 19:20 Labs: Lab Results 05/23/22 05/23/22 05/23/22 Range/Units 19:20 19:20 19:20 WBC 14.6 H (4.5-11.0) X10^3/uL RBC 4.18 (4.0-5.2) X10^6/uL Hgb 13.8 (12.0-16.0) g/dL Hct 41.1 (36-46) % MCV 98.5 (80-100) fL MCH 33.2 (26-34) PG MCHC 33.7 (30-36) % RDW 13.0 (11.6-14.8) % Plt Count 208 (150-400) X10^3/uL Neut % (Auto) 82.3 H (50-75) % Lymph % (Auto) 9.4 L (25-40) % [place] % (Auto) 6.6 (3-14) % Eos % (Auto) 1.3 L (2-4) % Baso % (Auto) 0.4 (0-2) % Neut # (Auto) 01402 H (0678-7770) /uL Lymph # (Auto) 1400 (2994-0391) /uL [place] # (Auto) 1000 H (0-900) /uL Eos # (Auto) 200 (0-450) /uL Baso # (Auto) 100 (0-100) /uL PT 14.4 H (10.1-12.7) SECONDS INR 1.3 (0.9-1.3) APTT (26.4-36.2) SECONDS Sodium 135 L (137-145) mmol/L Potassium 4.4 (3.4-5.1) mmol/L Chloride 101 (98-107) mmol/L Carbon Dioxide 23 (22-32) mmol/L BUN 42 H (7-17) mg/dL Creatinine 1.39 H (0.52-1.04) mg/dL Estimated GFR 38 L (>60) mL/min BUN/Creatinine Ratio 30.2 H (6-22) Glucose 138 H (80-110) mg/dL Lactate (0.7-2.1) mmol/L Calcium 9.2 (8.4-10.2) mg/dL Total Bilirubin 0.4 (0.2-1.3) mg/dL AST 41 H (14-36) IU/L ALT 38 H (<35) IU/L Alkaline Phosphatase 95 (38-126) U/L Total Creatine Kinase (30-135) U/L CK-MB (CK-2) CK-MB (CK-2) Rel Index Troponin I (0.01-0.034) ng/mL NT-Pro-B Natriuret Pep 140 (<450) pg/mL Total Protein 7.4 (6.3-8.2) g/dL Albumin 4.5 (3.5-5.0) g/dL Globulin 2.9 (1.7-4.1) g/dL Albumin/Globulin Ratio 1.6 (1.0-2.8) SARS-CoV-2 (PCR) (Negative) 05/23/22 05/23/22 05/23/22 Range/Units 19:20 19:20 19:20 WBC (4.5-11.0) X10^3/uL RBC (4.0-5.2) X10^6/uL Hgb (12.0-16.0) g/dL Hct (36-46) % MCV (80-100) fL MCH (26-34) PG MCHC (30-36) % RDW (11.6-14.8) % Plt Count (150-400) X10^3/uL Neut % (Auto) (50-75) % Lymph % (Auto) (25-40) % [place] % (Auto) (3-14) % Eos % (Auto) (2-4) % Baso % (Auto) (0-2) % Neut # (Auto) (0691-3043) /uL Lymph # (Auto) (1627-1502) /uL [place] # (Auto) (0-900) /uL Eos # (Auto) (0-450) /uL Baso # (Auto) (0-100) /uL PT (10.1-12.7) SECONDS INR (0.9-1.3) APTT 28 (26.4-36.2) SECONDS Sodium (137-145) mmol/L Potassium (3.4-5.1) mmol/L Chloride (98-107) mmol/L Carbon Dioxide (22-32) mmol/L BUN (7-17) mg/dL Creatinine (0.52-1.04) mg/dL Estimated GFR (>60) mL/min BUN/Creatinine Ratio (6-22) Glucose (80-110) mg/dL Lactate 2.1 (0.7-2.1) mmol/L Calcium (8.4-10.2) mg/dL Total Bilirubin (0.2-1.3) mg/dL AST (14-36) IU/L ALT (<35) IU/L Alkaline Phosphatase (38-126) U/L Total Creatine Kinase 35 (30-135) U/L CK-MB (CK-2) TNP CK-MB (CK-2) Rel Index TNP Troponin I < 0.012 (0.01-0.034) ng/mL NT-Pro-B Natriuret Pep (<450) pg/mL Total Protein (6.3-8.2) g/dL Albumin (3.5-5.0) g/dL Globulin (1.7-4.1) g/dL Albumin/Globulin Ratio (1.0-2.8) SARS-CoV-2 (PCR) (Negative) 05/23/22 Range/Units 19:20 WBC (4.5-11.0) X10^3/uL RBC (4.0-5.2) X10^6/uL Hgb (12.0-16.0) g/dL Hct (36-46) % MCV (80-100) fL MCH (26-34) PG MCHC (30-36) % RDW (11.6-14.8) % Plt Count (150-400) X10^3/uL Neut % (Auto) (50-75) % Lymph % (Auto) (25-40) % [place] % (Auto) (3-14) % Eos % (Auto) (2-4) % Baso % (Auto) (0-2) % Neut # (Auto) (1350-3549) /uL Lymph # (Auto) (2281-4304) /uL [place] # (Auto) (0-900) /uL Eos # (Auto) (0-450) /uL Baso # (Auto) (0-100) /uL PT (10.1-12.7) SECONDS INR (0.9-1.3) APTT (26.4-36.2) SECONDS Sodium (137-145) mmol/L Potassium (3.4-5.1) mmol/L Chloride (98-107) mmol/L Carbon Dioxide (22-32) mmol/L BUN (7-17) mg/dL Creatinine (0.52-1.04) mg/dL Estimated GFR (>60) mL/min BUN/Creatinine Ratio (6-22) Glucose (80-110) mg/dL Lactate (0.7-2.1) mmol/L Calcium (8.4-10.2) mg/dL Total Bilirubin (0.2-1.3) mg/dL AST (14-36) IU/L ALT (<35) IU/L Alkaline Phosphatase (38-126) U/L Total Creatine Kinase (30-135) U/L CK-MB (CK-2) CK-MB (CK-2) Rel Index Troponin I (0.01-0.034) ng/mL NT-Pro-B Natriuret Pep (<450) pg/mL Total Protein (6.3-8.2) g/dL Albumin (3.5-5.0) g/dL Globulin (1.7-4.1) g/dL Albumin/Globulin Ratio (1.0-2.8) SARS-CoV-2 (PCR) Negative (Negative) Imaging Data Chest x-ray: Radiologist's Impression: [address] [address] XRay Report Signed Patient: Monica Blanchard MR#: [id number] : 1940 Acct:[id number] Age/Sex: 82 / F Date of Service: 05/23/22 Loc: ED Accession Number: [id number] ?? Procedure: XR chest 1V Ordering Provider: Max Sharp D.O. PROCEDURE:? XR CHEST 1V ? INDICATIONS:? shortness of breath ? TECHNIQUE:? One view of the chest was acquired.? ? COMPARISON:? [facility], CR, XR CHEST 2V, 05/11/2022, 15:34. ? FINDINGS:? ? Surgical changes and devices:? Left shoulder arthroplasty.? Overlying monitoring wires. ? Lungs and pleura:? Minor diffuse interstitial thickening.? No dense consolidation, effusion, or pneumothorax.? There is biapical calcified pleural plaquing. ? Mediastinum:? No central venous congestion.? Cardiomediastinal contour is normal. ? Bones and chest wall:? Severe right glenohumeral joint space loss. Degenerative endplate spurs in the thoracic spine.? ? IMPRESSION:? ? 1. Diffuse interstitial thickening may indicate chronic edema or viral pneumonitis.? There is no evidence of central vascular congestion though correlation with BNP is recommended.? ? ? Dictated by: Mela Martinez M.D. on 05/23/2022 at 19:38 ? ? Approved by: Mela Martinez M.D. on 05/23/2022 at 19:39? ECG Data Attestation: I personally reviewed and interpreted this ECG as follows: Interpretation: Sinus rhythm Left axis deviation Normal axis Normal QRS Normal QTC No ST T wave changes MDM Narrative Medical decision making narrative: Clinically patient is not in heart failure. She is not having any lower extremity swelling in his not had any weight gain. Her lungs are clear. Chest x-ray does have some findings consistent with edema. Her BNP is unremarkable. Her EKG is unremarkable. Patient is afebrile. She does have leukocytosis but she also has just completed a course of steroids. She does not have a productive cough nor any change in her cough. Do have lower suspicion that her symptoms today are based on an acute CHF exacerbation. Lower suspicion that her symptoms are pneumonia. No indication for antibiotics. It seems that she did improved tremendously with steroids so we will start her back on a longer taper of steroids. Patient agrees with this. Discharged home and have patient follow-up with her primary provider. She expressed understanding and agreement with return precautions. Discharge Plan Departure Patient Disposition: Home Clinical Impression: Bronchitis Instructions: DI for Acute Bronchitis Activity Restrictions/Additional Instructions: It is important that you continue to take all of your medications as directed and keep all of your scheduled medical appointments. A prescription for prednisone was sent to [facility]. Please pick it up and start taking it as directed. The dosing will be Starting on05/24/22 take 30 mg (1.5 tablets) once a day for 5 days Then take 20 mg (1 tablet) once a day for 5 days Then take 10 mg (1/2 tablet) once a day for 5 days You will have more tablets in the prescription than what you need for this dosing regimen. Please save these tablets in case you need them in the future. Prescriptions: New prednisone 20 mg tablet 20 mg PO DAILY Qty: 30 0RF Rx Instructions: Use as directed No Action citalopram [Celexa] 20 mg tablet 10 mg PO DAILY Qty: 0 Label Comments: Patient reports she is weaning off estradiol 10 mcg insert, dose pack 10 mcg VAG 2XW nystatin-triamcinolone 100,000-0.1 unit/gram-% ointment 1 applictn TOPICAL BID PRN (Reason: as directed) Rx Instructions: Apply to affected area twice a day for 3 weeks flecainide 50 mg tablet 100 mg PO BID ropinirole 0.5 mg Tablet 0.5 mg PO BEDTIME Rx Instructions: administer 1-3 hours before bedtime omeprazole 20 mg capsule,delayed release(DR/EC) See Rx Instructions .ROUTE .COMPLEX PRN (Reason: Acid Reflux) Rx Instructions: TAKE 1 CAPSULE BY MOUTH TWICE DAILY Eliquis 5 mg tablet 5 mg PO BID Qty: 60 2RF diltiazem HCl 120 mg capsule,extended release 24hr 120 mg PO BID Label Comments: TK 1 C PO BID FOR BP CONTROL albuterol sulfate 90 mcg/actuation HFA aerosol inhaler 2 puff INHALATION Q4-6H PRN (Reason: Wheezing) Label Comments: INL 2 PFS PO Q 4 TO 6 H PRF WHZ prednisone 10 mg tablet 10 mg PO DAILY Qty: 30 0RF Rx Instructions: day 1-3: 40 mg once a day day 4-6: 30 mg once a day day 7-9: 20 mg once a day day 10-12: 10 mg once a day albuterol sulfate 0.63 mg/3 mL solution for nebulization 0.63 mg INHALATION QID PRN (Reason: shortness of breath or wheezing) Qty: 75 0RF acetaminophen 650 mg tablet extended release 650 mg PO Q12H Referrals: Danelle Gonzalez MD [Primary Care Provider] - Visit Report Forms: Patient Portal/API
[2022-05-23 19:37] LABS: INR 1.3 (0.9-1.3); Prothrombin Time 14.4 SECONDS (10.1-12.7)
[2022-05-23 19:40] LABS: COVID19 -Nasal RAPID Negative (Negative)
[2022-05-23 19:46] LABS: PTT Partial Thromboplastin Tim 28 SECONDS (26.4-36.2)
[2022-05-23 19:59] LABS: Lactate (Lactic Acid) 2.1 mmol/L (0.7-2.1)
[2022-05-23 20:00] LABS: Alanine Aminotransferase 38 IU/L (<35); Albumin 4.5 g/dL (3.5-5.0); Albumin Globulin Ratio 1.6 (1.0-2.8); Alkaline Phosphatase 95 U/L (38-126); Aspartate Aminotransferase 41 IU/L (14-36); BUN Creatinine Ratio 30.2 (6-22); Bilirubin Total 0.4 mg/dL (0.2-1.3); Blood Urea Nitrogen 42 mg/dL (7-17); Calcium 9.2 mg/dL (8.4-10.2); Carbon Dioxide 23 mmol/L (22-32); Chloride 101 mmol/L (98-107); Creatine Kinase 35 U/L (30-135); Estimated Glomerular Filt Rate 38 mL/min (>60); Globulin 2.9 g/dL (1.7-4.1); Glucose 138 mg/dL (80-110); HEMOLYSIS 31 (0-50); Potassium 4.4 mmol/L (3.4-5.1); Sodium 135 mmol/L (137-145); Total Protein 7.4 g/dL (6.3-8.2)
[2022-05-23 20:09] LABS: NT-proBNP (BNP-Adult 18+) 140 pg/mL (<450)
[2022-05-23 20:12] LABS: Troponin I < 0.012 ng/mL (0.01-0.034)
[2022-05-23] MEDS: predniSONE 20 MG TABLET 40 MG PO (20:52)
[2022-05-23 21:06] VITALS: BP 151/86; PULSE 81; RESP 20; O2SAT 97
[2022-05-23 21:22] LABS: Reflexed Lactate in 2 Hours Y
== END 2022-05-23 21:06 | disposition home or self-care (01) ==
PROVIDERS: Emergency Provider Emergency Medicine; PCP Family Medicine
DX: J40 Bronchitis, not specified as acute or chronic (principal); Z20.822 Contact with and (suspected) exposure to COVID-19; I10 Essential (primary) hypertension
CPT/HCPCS: 36415; 71045; 80053; 82550; 83605; 83880; 84484; 85025; 85610; 85730; 87635; 93005; 93010; 99283; 99284; C9803

== ENCOUNTER → 2022-08-10 13:15 | Outpatient (CLI) | payer MEDICARE, SELFPAY ==
--- NOTE | 2022-08-10 13:16 | DI.CT.S_ITS ---
PROCEDURE: CT CHEST WO CON INDICATIONS: Dyspnea, unspecified TECHNIQUE: Noncontrast 5 mm thick sections acquired from the pulmonary apices to the posterior costophrenic angles. 1 mm lung window, 5 mm thick coronal and sagittal and 7 mm axial MIP reformats were then acquired. For radiation dose reduction, the following was used: automated exposure control, adjustment of mA and/or kV according to patient size. COMPARISON: [facility], CT, CT CHEST ABDOMEN PELVIS WITH CONTRAST, 06/23/2022, 12:26. FINDINGS: Image quality: Excellent. Lungs and pleura: There has been interval worsening of some ground-glass airspace opacity and peribronchial soft tissue thickening in the basilar left lower lobe when compared with the prior study. There is also some mild cylindrical bronchiectasis in this region suggesting that there may be a component of a chronic infection or fibrotic change. No acute airspace opacity otherwise. Pleural spaces are clear. Mediastinum: Normal heart size. No pericardial effusion. Coronary and aortic atherosclerosis. No threshold enlarged mediastinal lymph node. Bones and chest wall: No suspicious bony lesions. No vertebral body compression fractures. No axillary or supraclavicular adenopathy by size criteria. Thyroid gland uniform attenuation. Abdomen: Visualized upper abdominal solid organs and bowel loops appear normal in the absence of contrast. IMPRESSION: Increased airspace opacity in the left lower lobe with some associated peribronchial soft tissue thickening. Findings are most likely infectious and given the location could represent aspiration pneumonia. Dictated by: Ender Olmedo M.D. on 08/12/2022 at 9:56 Approved by: Ender Olmedo M.D. on 08/12/2022 at 9:58
== END ==
PROVIDERS: PCP Family Medicine; Referring Provider Internal Medicine Cardiovascular Disease; Visit Provider Internal Medicine Cardiovascular Disease
DX: R06.00 Dyspnea, unspecified (principal)
CPT/HCPCS: 71250